=== PATIENT | female | born 1950 | race Caucasian/White ===

== ENCOUNTER → 2017-11-01 11:49 | Outpatient (CLI) | payer MEDICARE, SELFPAY ==
--- NOTE | 2017-11-01 11:35 | VUL_PTH ---
PATIENT: CEE TELLEZ LOC: [facility] U#:[id number] AGE/SX: 74/F ROOM: RE11/01/[address]: Dr. Ramon Bowers MD : 1950 BED: DIS: SPEC #: [id number] RECD: 11/01/17 12:18 STATUS: PRIYANKA VIKASH #: [id number] TWAN: 11/01/17 11:[address]: Ramon Bowers DEPT: SURGICAL PATHOLOGY RECD BY: Edison Hassan Tissues: Vulva, NOS Procedures: Special Stain Group I Surgery Specimen Level IV AFB Stain (control) GMS Stain (control) HEADER OPERATION: Biopsy right vulva PRE-OP DIAGNOSIS: Invasive squamous cell carcinoma vulva TISSUE SUBMITTED: Right vulvar biopsy MICROSCOPIC DIAGNOSIS Right vulva, biopsy: Verrucoid lesion with hyperkeratosis and parakeratosis. Focal intra-epithelial microabscess. Negative for acid-fast bacilli and fungal organisms. AM:krystal 11/02/17 COMMENT AFB and GMS stains with matched controls were used in the evaluation of this case. Case has been reviewed in consultation with Dr. Duran who concurs with the above diagnosis. IDC:SJ MICROSCOPIC DESCRIPTION Slides are reviewed. GROSS DESCRIPTION Received in fixative is one container labeled with the patient's name and designated biopsy of right vulva. The specimen consists of a punch biopsy of dobson-white skin measuring 0.2 cm in diameter and 0.2 cm in length. The specimen is totally submitted in one cassette. / RACHNA:krystal 11/01/17 TC:2 CPT: 23902, 81528 x2
== END ==
PROVIDERS: Visit Provider Obstetrics & Gynecology
DX: C51.9 Malignant neoplasm of vulva, unspecified (principal)
CPT/HCPCS: 88305; 88312

== ENCOUNTER → 2018-05-18 16:00 | Outpatient (CLI) | payer MEDICARE, SELFPAY ==
--- NOTE | 2018-05-18 | IMM_PTH ---
PATIENT: CEE TELLEZ LOC: [facility] U#:[id number] AGE/SX: 74/F ROOM: RE05/18/[address]: Dr. Ramon Bowers MD : 1950 BED: DIS: SPEC #: [id number] RECD: 05/22/18 14:35 STATUS: PRIYANKA RE #: [id number] TWAN: 05/18/18 00:[address]: Ramon Bowers DEPT: IMMUNOHISTOCHEMISTRY RECD BY: Amairani Garcia Tissues: A - Labium minus B - Vulva, NOS Procedures: CK14 (add) CK5-6 (add) KI-67 (add) P16 (add) P53 (add) Pankeratin (initial) P40 (add) PHYSICIAN & INSTITUTION [place] [id number] SPECIMEN INFORMATION: Tissue Source: A - Right inner labia minora, B - Right vulva Clinical Info: Lichen sclerosus Specimen Number: [id number] A & B CPT code: 64021 x2, 44924 x12 METHODOLOGY: Deparaffinized sections of prefer/formalin-fixed tissue or PAP/DQ stained slides are incubated with monoclonal/polyclonal antibodies/oligonucleotide probes. Localization is made via biotin free immunoperoxidase method. Appropriate controls are performed and reacted as expected. Results on target cell population are indicated in the following table: RESULTS: ANTIBODY / CLONE RESULT Block A AE1-3 (AE1/AE3/PCK26) positive P40 (BC28) positive CK5-6 (D5 & 1684) positive CK14 (LL002) positive P16 (E6H4) positive, patchy, dim Ki-67 (30-9) positive, low P53 (DO-7) positive, 45% Block B AE1-3 (AE1/AE3/PCK26) positive P40 (BC28) positive CK5-6 (D5 & 1684) positive CK14 (LL002) positive P16 (E6H4) negative Ki-67 (30-9) positive, low P53 (DO-7) positive, 10% These tests were developed and their performance characteristics determined by [facility]. They may not have been cleared or approved by the U.S. Food and Drug Administration. The FDA has determined that such clearance or approval is not necessary. INTERPRETATION: A. Right inner labia minora: Fragments of dysplastic squamous mucosa. B. Right vulva: Focal mild squamous dysplasia. AM:krystal 05/23/18 Case has been reviewed in consultation with Dr. Duran who concurs with the above diagnosis. IDC:SJ
--- NOTE | 2018-05-18 11:00 | LES_PTH ---
PATIENT: CEE TELLEZ LOC: [facility] U#:[id number] AGE/SX: 74/F ROOM: RE05/18/[address]: Dr. Ramon Bowers MD : 1950 BED: DIS: SPEC #: [id number] RECD: 05/18/18 15:48 STATUS: PRIYANKA VIKASH #: [id number] TWAN: 05/18/18 11:[address]: Ramon Bowers DEPT: SURGICAL PATHOLOGY RECD BY: Edison Hassan Tissues: A - Skin of labium, NOS B - Skin of vulva Procedures: Surgery Specimen Level IV HEADER OPERATION: Biopsies, lesions PRE-OP DIAGNOSIS: Lichen sclerosus TISSUE SUBMITTED: A - Right inner labia minora, B - Right vulva MICROSCOPIC DIAGNOSIS A. Right inner labia minora, biopsy: Fragments of dysplasitc squamous mucosa. See comment. B. Right vulva, biopsy: Mild squamous dysplasia, CHRIS I (LGSL). Changes consistent with HPV cytopathic effect. See comment. AM:krystal 05/22/18 COMMENT A & B. Immunohistochemistry ([id number]) supports the above diagnosis. A. Dysplastic fragments of squamous mucosa along with dyskeratosis and increased mitosis are present and suspicious for carcinoma in situ or higher grade lesion. Excision of lesion is recommended for definitive classification. Reference is made to the patient's right vulvar biopsy from 2017 ([id number]) in which lichen sclerosus and hyperkeratosis was identified. Reference is also made to the patient's right vulvar biopsy from 2018 ([id number]) in which verrucoid lesion with hyperkeratosis and parakeratosis was identified. Case has been reviewed in consultation with Dr. Duran who concurs with the above diagnosis. IDC:SJ MICROSCOPIC DESCRIPTION Slides are reviewed. GROSS DESCRIPTION A - Received in fixative is one container labeled with the patient's name and designated right inner labia minora. The specimen consists of two irregular fragments of congested dobson soft tissue that in aggregate measure 1 x 0.4 x 0.1 cm. The specimen is totally submitted in one cassette. B - Received in fixative is one container labeled with the patient's name and designated right vulva. The specimen consists of two pieces of dobson-white skin that in aggregate measure 0.8 x 0.3 x 0.1 cm. The specimen is totally submitted in one cassette. / RACHNA:krystal 05/19/18 TC:? CPT: 65903 x2
== END ==
PROVIDERS: Referring Provider Obstetrics & Gynecology; Visit Provider Obstetrics & Gynecology
DX: L90.0 Lichen sclerosus et atrophicus (principal)
CPT/HCPCS: 88305; 88341; 88342

== ENCOUNTER → 2018-06-20 10:58 | Outpatient (CLI) | payer MEDICARE, SELFPAY ==
--- NOTE | 2018-06-20 11:06 | CT_ITS ---
STUDY: CT ABDOMEN AND PELVIS WITH CONTRAST REASON FOR EXAM: Female, 67 years old. The patient has a history of vulvar cancer. Adenopathy. RADIATION DOSAGE (If Supplied By Facility): CTDIvol = ( 16.82 ) mGy, DLP = ( 1439.18 ) mGycm TECHNIQUE: Transaxial images were obtained from the dome of the diaphragm to the symphysis pubis with oral contrast. 100 IV/Oral Isovue 300 was administered. Sagittal and coronal images were reconstructed. Individualized dose optimization techniques were used for this CT. COMPARISON: None. FINDINGS: The visualized lung bases are unremarkable. The visualized portions of the heart are within normal limits. Normal liver. There are gallstones. Normal spleen. Normal pancreas. Normal bilateral adrenal glands. Normal right kidney. Normal left kidney. Normal visualized stomach. Normal small intestine. Normal colon. The appendix is visualized and appears normal. There is scattered atherosclerotic calcification of the abdominal aorta, without a demonstrated aneurysm. Normal inferior vena cava. There is borderline retroperitoneal lymphadenopathy with enlarged nodes no greater than 10mm in the short axis diameter. Normal urinary bladder. There is a small umbilical hernia containing fat. There are mild degenerative changes of the visualized lumbar spine. CT/Abdomen/Pelvis WITH Contrast IMPRESSION: Gallstones. No acute abnormality is seen. Electronically Signed: Rick Sanchez, at 8:39 EDT , Service support ,
[2018-06-20 13:10] LABS: CREATININE FINGERSTICK 0.8 mg/dL (0.55-1.02); EGFR FINGERSTICK > 60.0000 mL/min (>60)
--- NOTE | 2018-06-20 13:44 | EKG12_ITS ---
Test Reason : PREOP Blood Pressure : / mmHG Vent. Rate : 106 BPM Atrial Rate : 127 BPM P-R Int : 152 ms QRS Dur : 092 ms QT Int : 328 ms P-R-T Axes : 065 033 051 degrees QTc Int : 435 ms Sinus tachycardia Nonspecific ST/T wave abnormality Abnormal ECG Confirmed by YEYO MERCADO, LUZ MARIA ([id number]), photograph editor [employer] [place] ([id number]) on 06/23/2018 11:38:33 AM Referred By: Ollie Haines Confirmed By:LUZ MARIA ORONA MD
[2018-06-20 14:51] LABS: Absolute Lymphocyte Count 2.58 X10^3/ul (0.83-4.51); Absolute Neutrophil Count 11.3 X10^3/uL (2.0-7.7); Basophil# 0.02 X10^3/uL; Basophil% 0.1 % (0-1); Eosinophil# 0.21 X10^3/uL; Eosinophils% 1.4 % (0-5); Hematocrit 41.4 % (37-47); Hemoglobin 13.2 g/dl (12.0-15.0); Lymphocyte # 2.58 X10^3/ul (4.0); Lymphocyte % 16.9 % (19-41); Mean Corp Hgb Conc 31.9 g/gl (32-36); Mean Corpuscular Hgb 28.9 pg (27.0-32.0); Mean Corpuscular Volume 90.6 fL (81-99); Mean Platelet Vol. 10.7 fl (6.2-12.0); Monocyte# 1.16 X10^3/uL; Monocyte% 7.6 % (0-10); Neutrophil # 11.26 X10^3/uL (2.7-7.7); Neutrophil % 73.8 % (47-70); Platelet Count 384 K/mm3 (150-450); RBC Distribution Width CV 14.8 % (11.6-14.6); RBC Distribution Width SD 48.4 fl (35.1-43.9); Red Blood Count 4.57 M/mm3 (4.2-5.4); White Blood Count 15.3 K/mm3 (4.4-11.0)
[2018-06-20 14:52] LABS: POSITIVE COUNT NO; POSITIVE DIFFERENTIAL NO; POSITIVE MORPHOLOGY NO
[2018-06-20 14:55] LABS: Partial Thromboplast Time 31.5 Seconds (24.1-36.2); Prothrombin Time (Protime)PT. 13.4 SECONDS (11.7-14.9)
[2018-06-20 15:06] LABS: ALB/GLOB Ratio 0.7 RATIO (0.9-2.4); AST(SGOT) 20 U/L (15-37); Alanine Aminotransfer ALT/SGPT 26 U/L (13-56); Albumin, Serum 3.2 g/dL (3.2-5.0); Alkaline Phosphatase 123 U/L (45-117); Anion Gap 3 (5-15); BUN 13 mg/dL (7-18); BUN/Creat Ratio 16.6 RATIO (10-20); Calcium,Total 9.1 mg/dL (8.5-10.1); Chloride 103 mmol/L (98-107); Creatinine, Serum 0.78 mg/dL (0.55-1.02); EST Glomerular Filtration Rate 78 mL/min (>60); Est Glom Filt Rate - Afr Amer 94 mL/min (>60); Globulin 4.3 g/dL (2.2-4.2); Glucose 103 mg/dL (74-106); Protein, Total 7.5 g/dL (6.4-8.2); Sodium Level 136 mmol/L (136-145)
== END ==
PROVIDERS: Family Provider Nurse Practitioner Family; PCP Nurse Practitioner Family
DX: C51.9 Malignant neoplasm of vulva, unspecified (principal); Z79.01 Long term (current) use of anticoagulants
CPT/HCPCS: 36415; 74177; 80053; 85025; 85610; 85730; 93005; Q9967

== ENCOUNTER → 2018-08-10 11:54 | Outpatient (CLI) | payer MEDICARE, SELFPAY ==
--- NOTE | 2018-08-10 12:01 | CT_ITS ---
STUDY: CT ABDOMEN AND PELVIS WITH CONTRAST REASON FOR EXAM: Female, 67 years old. Although cancer with vulvectomy. Right lymph nodes removed. RADIATION DOSAGE (If Supplied By Facility): CTDIvol = ( 15.41 ) mGy, DLP = ( 1368.55 ) mGycm TECHNIQUE: Transaxial images were obtained from the dome of the diaphragm to the symphysis pubis without oral contrast. 100 ml of Isovue 300 contrast was administered. Sagittal and coronal images were reconstructed. Individualized dose optimization techniques were used for this CT. COMPARISON: CT abdomen and pelvis 06/20/2018 FINDINGS: Body wall soft tissues: Postsurgical changes, minimal soft tissue stranding, in the right groin. Small bilateral inguinal lymph nodes. Postsurgical changes in the perineum/inferior vulva consistent with reported surgical history, with no apparent residual masslike features and no abnormal fluid collection.. Osseous structures: No acute process. Inferior chest: No acute process. Hepatobiliary: Cholelithiasis without cholecystitis. Nondilated biliary tree. Normal liver parenchyma. Pancreas: No acute process. Spleen: Normal. Adrenal glands: Normal. Urogenital: Normal kidneys, collecting systems, ureters, urinary bladder, uterus, ovaries and adnexa. Normal features of the vagina. Pelvic floor and sidewalls and retroperitoneum: There are small lymph nodes of the iliac chains bilaterally, the largest in the distal iliac chains, on the left 14 mm, on the right 13 mm. Unchanged compared to prior imaging. There is no periaortic retroperitoneal lymphadenopathy. Vasculature: No acute process. Stomach: No acute process. Small bowel and mesentery: No acute process. Large bowel: Normal appendix. Unremarkable large bowel and rectum. Free fluid or free air: None. CT/Abdomen/Pelvis WITH Contrast IMPRESSION: Stable iliac chain and inguinal lymph nodes. Postsurgical features of the right inguinal chain and pelvis/perineum as described without evidence of surgical consultation. No other acute abdominopelvic process is evident. Electronically Signed: Eliecer Longoria MD at 16:03 EDT Tel , Service support ,
== END ==
PROVIDERS: Family Provider Nurse Practitioner Family; PCP Nurse Practitioner Family
DX: Z01.812 Encounter for preprocedural laboratory examination (principal); C51.9 Malignant neoplasm of vulva, unspecified
CPT/HCPCS: 74177; Q9967

== ENCOUNTER → 2022-11-18 | Outpatient (CLI) | payer MEDICARE, SELFPAY ==
--- NOTE | 2022-11-18 14:00 | BD_ITS ---
STUDY: DUAL ENERGY X-RAY ABSORPTIOMETRY / DXA REASON FOR EXAM: Female, 72 years old. SCREENING TECHNIQUE: Bone Mineral Density (BMD) measurements of lumbar spine and bilateral hips were obtained. COMPARISON: None. FINDINGS: Lumbar Spine (L1-L4): g/cm2 (1.256) / T-score (1.9) / Z-score (4.1) Findings are suggestive of normal bone density with a low fracture risk. Left Femur Total: g/cm2 (0.940) / T-score (0.0) / Z-score (1.6) Left Femoral Neck: g/cm2 (0.774) / T-score (-0.7) / Z-score (1.2) Right Femur Total: g/cm2 (0.885) / T-score (-0.5) / Z-score (1.2) Right Femoral Neck: g/cm2 (0.790) / T-score (-0.5) / Z-score (1.4) . BD/Dexa Bone Density Study IMPRESSION: The patient is considered normal as outlined below according to World Jaziel Organization (WHO) criteria with a low fracture risk. Reference Information: The T-score is the number of standard deviations above or below the standard which is normal for young adults at their peak bone mineral density. The World Health Organization (WHO) interprets the T-scores as follows: Above -1 Normal bone density Between -1 and -2.5 Osteopenia Equal to / or below -2.5 Osteoporosis As a practical clinical guideline, osteopenia may be graded as follows: Mild -1 through -1.5 Moderate -1.6 through -2.0 Severe -2.1 through -2.4 The Z-score is the number of standard deviations above or below age-matched controls. A Z-score of less than -1.5 would be considered abnormal. References: 1. NIH Osteoporosis and Related Bone Diseases www osteo.org 2. International Society for Clinical Densitometry www iscd.org 3. National Osteoporosis Foundation www nof.org Electronically Signed: Rick Sanchez MD at 12:31 EDT ,
== END | disposition home or self-care (01) ==
LOC: OPBD 13:26
PROVIDERS: PCP Nurse Practitioner Family; Referring Provider Internal Medicine Hematology & Oncology; Visit Provider Internal Medicine Hematology & Oncology
DX: Z78.0 Asymptomatic menopausal state (principal)
CPT/HCPCS: 77080

== ENCOUNTER → 2023-03-31 | Outpatient (CLI) | payer MEDICARE, SELFPAY ==
--- NOTE | 2023-03-31 14:51 | CT_ITS ---
STUDY: CT ABDOMEN AND PELVIS WITH CONTRAST REASON FOR EXAM: Female, 72 years old. VULVAR CA RADIATION DOSAGE (If Supplied By Facility): CTDIvol = ( 21.69 ) mGy, DLP = ( 1509.90 ) mGycm TECHNIQUE: Oral and amp; IV Gastrografin and amp; 100mL Isovue-300 was administered. Transaxial images were obtained from the dome of the diaphragm to the symphysis pubis in the arterial, nephrographic and excretory phases. Multiplanar coronal and sagittal images were reformatted. Individualized Dose Optimization Techniques Were Used For This CT. COMPARISON: Prior study dated: 08/10/2018 FINDINGS: The visualized lung bases are unremarkable. The visualized portions of the heart are within normal limits. Hepatic steatosis. Low-density lesion in segment 4A of the liver measuring about 3.7 x 2.4 x 2 cm new since the previous examination. Gallstones are seen. Normal spleen. Normal pancreas. Normal bilateral adrenal glands. Normal visualized stomach. Normal in caliber small bowel loops. No evidence of acute diverticulitis. There is non-visualization of the appendix. There is atherosclerotic calcification of the abdominal aorta with elongation and tortuosity, but without a demonstrated aneurysm. No retroperitoneal adenopathy. Normal right kidney. Normal left kidney. The bladder is not well distended. No pelvic mass. The valvar region is difficult to accurately evaluate on this exam. Normal abdominal wall. Degenerative changes of the spine. CT/Abdomen/Pelvis WITH Contrast IMPRESSION: 1. Liver lesion as described above new since previous examination could be due to hemangioma. Metastases cannot be excluded. Further evaluation with multiphase CT scan of the liver or MRI with contrast is recommended. 2. Otherwise no evidence of metastatic disease. 3. Cholelithiasis 4. No focal acute inflammatory process. Electronically Signed: Brenton Silverio MD at 15:34 EST ,
[2023-03-31 15:16] LABS: CREATININE FINGERSTICK 1.1 mg/dL (0.55-1.02)
== END | disposition home or self-care (01) ==
LOC: CT 14:47
PROVIDERS: PCP Nurse Practitioner Family; Referring Provider Nurse Practitioner Adult Health; Visit Provider Nurse Practitioner Adult Health
DX: C51.9 Malignant neoplasm of vulva, unspecified (principal); N89.8 Other specified noninflammatory disorders of vagina
CPT/HCPCS: 74177; Q9967

== ENCOUNTER → 2023-04-20 | Outpatient (CLI) | payer MEDICARE, SELFPAY ==
--- NOTE | 2023-04-20 14:55 | CT_ITS ---
STUDY: CT ABDOMEN WITH AND WITHOUT CONTRAST REASON FOR EXAM: Female, 72 years old. LIVER LESION RADIATION DOSAGE (If Supplied By Facility): CTDIvol = ( 19.97 ) mGy, DLP = ( 2921.32 ) mGycm TECHNIQUE: Transaxial images were obtained pre and post I.V. administration of IV 100mL Isovue-300, and with oral contrast. Sagittal and coronal images were reconstructed. Individualized dose optimization techniques were used for this CT. COMPARISON: Comparison is made with prior study dated March 31, 2023. FINDINGS: The visualized lung bases are unremarkable. The visualized portions of the heart are within normal limits. There is decreased attenuation of the liver consistent with steatosis. Stable 3.7 cm x 2.4 cm x 2 cm hypodense lesion in segment 4A of the liver. This is not a typical hemangioma. Correlation with ultrasound or MRI is recommended for further evaluation. There are multiple small gallstones. Normal spleen. Normal pancreas. Normal bilateral adrenal glands. Normal right kidney. Normal left kidney. Normal visualized stomach. Normal small intestine. Normal colon. The appendix is visualized and appears normal. Normal abdominal aorta. Normal inferior vena cava. Normal retroperitoneum. Normal abdominal wall. Normal osseous structures. CT/Abdomen W/WO IV Contrast IMPRESSION: Stable finding in segment 4A of the liver as described. Further correlation with MRI of the liver versus ultrasound recommended. Electronically Signed: Rick Sanchez MD at 15:12 EST ,
== END | disposition home or self-care (01) ==
LOC: CT 14:05
PROVIDERS: PCP Nurse Practitioner Family; Referring Provider Nurse Practitioner Adult Health; Visit Provider Nurse Practitioner Adult Health
DX: C51.9 Malignant neoplasm of vulva, unspecified (principal); K76.9 Liver disease, unspecified; R16.0 Hepatomegaly, not elsewhere classified
CPT/HCPCS: 74170; Q9967

== ENCOUNTER → 2023-05-17 | Outpatient (CLI) | payer MEDICARE, SELFPAY ==
--- NOTE | 2023-05-17 09:30 | PET_ITS ---
EXAMINATION: FDG PET/CT INDICATIONS: 72-year-old female with a history of vulvar carcinoma, presenting for restaging examination. ? COMPARISON EXAMINATION: None available. ? INDEX LESION SIZE SUV INTERPRETATION Anterior midline external genitalia 38.1 mm, largest 8.2 max Fulfills quantitative criteria for viable neoplasm ? TECHNIQUE: Following the intravenous administration of 12.47 mCi of F-18 deoxyglucose via the right hand, multiplanar image acquisitions of the head, neck, chest, abdomen and pelvis to the level of the midthigh, obtained at one-hour post radiopharmaceutical administration contemporaneously interpreted with the current CT of the chest, abdomen and pelvis dated 05/17/2023 via coregistration reveal: SERUM GLUCOSE LEVEL:? 130 mg/dL? HEIGHT:?? 67 inches WEIGHT:?? 147 pounds ? FINDINGS: ? HEAD/NECK:? There is no evidence of abnormal increased glucose metabolism in the pharyngeal mucosal space, parapharyngeal space, oropharynx, bilateral-lateral and anterior neck, hypopharynx and distribution of the larynx. ? The visualized portion of the cerebral cortical-subcortical structures demonstrate symmetric and preserved glucose metabolism. ? CHEST:? There is no quantitative scintigraphic evidence of abnormal increased glucose metabolism within the context of the bilateral hemithorax pulmonary parenchyma, right and left hemithorax at the pleural interface, mediastinal structures, and left-right thoracic perihilum. ? CT of the chest demonstrates the following anatomic characteristics: Bilateral axillary soft tissue densities are non tracer avid. There are no parenchymal densities-nodules defined in the right and left hemithorax with quantitatively significant increased glucose metabolism. Calcification is defined within the descending thoracic aorta. ? ABDOMEN/PELVIS:? Facilitated FDG concentration is manifest in the region of the anterior midline external genitalia. The calculated maximum standard uptake value is 8.2. The maximum axial diameter of the metabolic, morphologic abnormality is 38.1 mm. Normal physiologic distribution of the radiopharmaceutical is identified in the hepatic and splenic parenchyma, both renal units, urinary bladder, and visualized intestinal tract. Diffuse intestinal tract is identified in all four quadrants of the abdomen and pelvis. ? CT of the abdomen and pelvis is remarkable for the following: Atherosclerotic calcification is defined in the abdominal aorta without evidence of dilatation, aneurysm formation. Pelvic arterial calcification is observed. Cholelithiasis is demonstrated. Bilateral inguinal soft tissue densities are ametabolic. Calcified phlebolith formation is noted in the left lower hemipelvis. ? SKELETAL:? Degenerative changes defined in the thoracic and lumbar spine demonstrate no evidence of increased glucose metabolism. There are no sclerotic, mixed sclerotic-lytic, or primarily lytic changes defined in the axial skeletal structures with evidence of increased FDG uptake. ? PET/PET/CT Tumor Base -Thigh Init IMPRESSION: 1. ABNORMAL EXAMINATION INDICATIVE OF MALIGNANT-VIABLE NEOPLASM. 2. Increased FDG concentration defined in the distribution of the midline external genitalia, fulfills quantitative criteria for viable neoplasm. 3. Meticulous attention paid to the hepatic parenchyma demonstrates no scintigraphic abnormalities. Electronic Signature Eliecer oBlanos D.O. Accurate Quantification of SUVs for this report are calculated using the exclusive [employer]. (U.S. Patent No. [phone] [phone] B2 [phone] [place] patent [phone]). Standardization and correction of the FDG SUV metric via [employer] technology allow for vendor non-specific objective quantitative examination comparison and optimization of the sensitivity and specificity of the FDG PET-CT examination. . [email or web address] Electronically Signed: Eliecer Bolanos DO at 23:43 EST ,
--- OUTSIDE RECORDS SUMMARY | 2023-05-17 10:11 | XMS RPT_ITS | CCD ---
Author Name Unknown Address [address] [place] [address] Organization [facility] Care Team Providers Care Jockey'S Agent Name Role Phone SHANAE BALDERAS-QUEENIE, LATASHA Remy Primary Care Physicia n LATASHA CLOUD CNP Admitting Unavailable LATASHA CLOUD CNP Primary Care Unavailable LATASHA CLOUD CNP Consulting Unavailable LATASHA CLOUD CNP Attending Unavailable PROVIDER, UNKNOWN Consulting Unavailable PROVIDER, UNKNOWN Consulting Unavailable LATASHA CLOUD CNP Primary Care Unavailable LATASHA CLOUD CNP Consulting Unavailable LATASHA CLOUD CNP Attending Unavailable LATASHA CLOUD CNP Admitting Unavailable PROVIDER, UNKNOWN Consulting Unavailable PROVIDER, UNKNOWN Consulting Unavailable LATASHA CLOUD CNP Admitting Unavailable LATASHA CLOUD CNP Primary Care Unavailable LATASHA CLOUD CNP Consulting Unavailable LATASHA CLOUD CNP Attending Unavailable PROVIDER, UNKNOWN Consulting Unavailable PROVIDER, UNKNOWN Consulting Unavailable ABDOULAYE, DELMAR T Attending Unavailable ABDOULAYE, DELMAR T Admitting Unavailable ABDOULAYE, DELMAR T Primary Care Unavailable ABDOULAYE, DELMAR T Attending Unavailable ABDOULAYE, DELMAR T Admitting Unavailable ABDOULAYE, DELMAR T Primary Care Unavailable ADEBAYO, SHRUTHI PAC Admitting Unavailable ADEBAYO, SHRUTHI PAC Primary Care Unavailable ADEBAYO, SHRUTHI PAC Attending Unavailable ABDOULAYE, DELMAR T Attending Unavailable ABDOULAYE, DELMAR T Admitting Unavailable ABDOULAYE, DELMAR T Primary Care Unavailable Kelly MERCADO, Rei Parra Unavailable JOHN MERCADO, ANA M Attending Unavailable TREY CHIU MD Consulting Unavailable SHANAE BALDERAS-QUEENIE, LATASHA Remy Primary Care Unava ANA M Warner MD Admitting Unavailable ANA M LOPEZ MD Attending Unavailable SHANAE BALDERAS-QUEENIE, LATASHA Remy Primary Care Unava ilCARLOS Ruiz Attending Unavaila ble SHANAE BALDERAS-QUEENIE, LATASHA Remy Primary Care ANA M House MD Attending Unavailable LATASHA GARCIA Primary Care ANA M House MD Attending Unavailable LATASHA GARCIA Primary Care ANA M House MD Attending Unavailable LATASHA GARCIA Primary Care ANA M House MD Attending Unavailable LATASHA GARCIA Primary Care Latasha Kenyon Primary Care Provider REI MENDOZA Attending Unavailable CARLOS STRINGER Referring Unavailable LATASHA CLOUD Primary Care Unavailable Allergies Allergy Classification Reported Allergen(s) Allergy Type Date of Onset Reaction(s) Facility (14 sources) Acetaminophen / pamabrom / Pyrilamine; Translations: [APAP/pamabrom/pyr ilamine] Drug Allergy Rash, Unknown [facility] Work Phone: (7 sources) Adhesive Tape Drug allergy Skin irritation (disorder) [facility] Work Phone: (3 sources) Acetaminophen Drug Allergy 4 Rash, Unknown [facility] (3 sources) Jywu-Kflpzcyw-Msks jessica Drug Allergy 3 Hives [facility] Medications Current Medications Medication Drug Class(es) Dates Sig (Normalized) Sig (Original) 8 hr acetaminophen 650 mg extended release oral tablet (7 sources) Start: 08-01-2020 Tylenol 8 Hour 650 mg oral tablet, extended release Dose : 1,300 mg = 2 tab(s), Oral, q8h, PRN PRN as needed for pain, # 50 tab(s), 0 Refill(s) Start Date: 08/01/20 Status: Ordered Completed/Discontinued Medications Medication Drug Class(es) Dates Sig (Normalized) Sig (Original) Estrace Vaginal 0.1 mg/g vaginal cream (1 source) Start: 01-07-2021 End: 02-06-2021 Estrace Vaginal 0.1 mg/g vaginal cream 1 gram(s), Vaginal, qDay, Use daily for 14 days then 3/week., # 42.5 gram(s), 0 Refill(s), Pharmacy: [id number], 170.2, cm, 01/07/21 11:45:00 EDT, Height, kg, 01/07/21 11:45:00 EDT, Dosing Weight Start Date: 01/07/21 Stop Date: 02/06/21 Status: Ordered metroNIDAZOLE 500 mg oral tablet (4 sources) Nitroimidazole Antimicrobial Start: 01-15-2021 End: 01-22-2021 metroNIDAZOLE 500 mg oral tablet Dose : 500 mg = 1 tab(s), Oral, q8h, # 21 tab(s), 0 Refill(s), 116.8 Start Date: 01/15/21 Stop Date: 01/22/21 Status: Ordered Problems Active Problems Problem Classification Problem Date Documented Da te Episodic/Chronic Anxiety disorders (2 sources) Anxiety; Translations: [Anxiety disorder, unspecified] 05-09-2023 Chronic Cancer of other female genital organs (11 sources) Malignant tumor of vulva; Translations: [Malignant neoplasm of vulva, unspecified] Onset: 07-05-2022 08-12-2020 Chronic Cardiac dysrhythmias (8 sources) Atrial fibrillation 05-04-2019 Chronic Past or Other Problems Problem Classification Problem Date Documented Date Episodic/Chronic Nonmalignant breast conditions (3 sources) Mammographic calcification found on diagnostic imaging of breast; Translations: [Mammographic calcification found on diagnostic imaging of breast] Onset: 09-16-2022 Episodic Results Test Name Value Interpretation Reference Range Facil ity Vital Signs Date Time Vital Sign Value Performing Clinician Sebastian morrisy 06-21-2022 11:53-0400 Blood Pressure Location ANA M LOPEZ MD [facility] 06-21-2022 11:53-0400 Blood Pressure Method ANA M LOPEZ MD [facility] 06-21-2022 11:53-0400 Diastolic Blood Pressure Non-Invasive 78 1 ANA M LOPEZ MD [facility] 06-21-2022 11:53-0400 Systolic Blood Pressure Non-Invasive 125 1 ANA M LOPEZ MD [facility] 06-21-2022 11:41-0400 Blood Pressure Location ANA M LOPEZ MD [facility] 06-21-2022 11:41-0400 Blood Pressure Method ANA M LOPEZ MD [facility] 06-21-2022 11:41-0400 Body height 171 cm ANA M LOPEZ MD [facility] 06-21-2022 11:41-0400 Body temperature 98.06 [degF] ANA M LOPEZ MD [facility] 06-21-2022 11:41-0400 Body weight 115.1 kg ANA M LOPEZ MD [facility] 06-21-2022 11:41-0400 Diastolic Blood Pressure Non-Invasive 84 1 ANA M LOPEZ MD [facility] 06-21-2022 11:41-0400 Heart rate 88 /min ANA M LOPEZ MD [facility] 06-21-2022 11:41-0400 Systolic Blood Pressure Non-Invasive 164 1 ANA M LOPEZ MD [facility] Encounters Encounter Date Encounter Type Care Provider Facility Start: 05-04-2023 Telephone encounter Rei Mendoza MD Work Phone: [facility] Start: 04-28-2023 End: 04-28-2023 ambulatory REI MENDOZA [facility] Start: 04-08-2023 Telephone encounter Rei Mendoza MD Work Phone: [facility] Start: 03-24-2023 End: 03-25-2023 ambulatory CARLOS CHAUDHRY Facility:A Start: 03-09-2023 End: 03-09-2023 ambulatory LAT[facility] Start: 03-08-2023 ambulatory DELMAR Rico [facility] Start: 11-10-2022 End: 11-11-2022 ambulatory ANA M LOPEZ MD Facility:A Start: 10-06-2022 End: 10-06-2022 ambulatory [facility] Start: 09-16-2022 End: 09-16-2022 ambulatory [facility] Start: 08-27-2022 End: 08-27-2022 [facility] Start: 08-04-2022 End: 08-05-2022 ambulatory ANA M LOPEZ MD Facility:A Start: 07-21-2022 End: 07-22-2022 ambulatory ANA M LOPEZ MD Facility:A Start: 07-21-2022 End: 07-21-2022 Patient encounter procedure ANA M LOPEZ MD [facility] Start: 07-05-2022 End: 07-06-2022 Evaluation and management of inpatient ANA M LOPEZ MD Facility:A Start: 06-21-2022 End: 06-22-2022 ambulatory ANA M LOPEZ MD Facility:A Start: 06-21-2022 End: 06-21-2022 Admission to establishment ANA M LOPEZ MD [facility] Start: 06-17-2022 End: 06-18-2022 ambulatory ANA M LOPEZ MD Facility:A Start: 06-17-2022 End: 06-17-2022 Patient encounter procedure ANA M LOPEZ MD [facility] Start: 03-17-2022 End: 03-17-2022 ambulatory LATASHA QUEENIE CLOUD [facility] Start: 12-30-2021 End: 12-30-2021 Patient encounter procedure ANA M LOPEZ MD [facility] Start: 05-28-2021 End: 05-28-2021 Patient encounter procedure ANA M LOPEZ MD [facility] Start: 01-15-2021 End: 01-15-2021 Patient encounter procedure ANA M LOPEZ MD [facility] Start: 01-07-2021 End: 01-07-2021 Patient encounter procedure ANA M LOPEZ MD [facility] Procedures Date Procedure Procedure Detail Performing Clinician Start: 07-05-2022 Vulvectomy radical partial ANA M LOPEZ MD Start: 08-12-2020 Vulvectomy ANA M WILKERSON MD Start: 03-21-2012 Entire parathyroid g land (body structure) ANA M LOPEZ MD Plan of Treatment Date Care Activity Detail Author Start: 04-28-2023 End: 04-28-2023 Patient encounter procedure 04/28/2023 1:00 PM EST Office Visit [facility] [address] [place] [address] Rei Mendoza MD [address] [place], [place] [id number] [facility] Start: 11-19-2022 Influenza vaccination Influenza Vaccine (#1) [facility] Start: 12-23-2016 Pneumococcal Vaccine: 65+ Years (2 of 2 - PPSV23 or PCV20) Pneumococcal Vaccine: 65+ Years (2 of 2 - PPSV23 or PCV20) [facility] Start: 2010 RSV Immunization aged 60 or older (1 - 1-dose 60+ series) RSV Immunization aged 60 or older (1 - 1-dose 60+ series) [facility] Start: 2000 Zoster Vaccines (1 of 2) Zoster Vaccines (1 of 2) [facility] Start: 1990 Screening for malignant neoplasm of breast Mammogram [facility] Start: 1969 DTaP/Tdap/Td Vaccines (1 - Tdap) DTaP/Tdap/Td Vaccines (1 - Tdap) [facility] Start: 1968 Diabetes mellitus screening Diabetes Screening [facility] Start: 1968 Hepatitis C screening Hepatitis C Screening [facility] Start: 1962 Depression Screening Depression Screening [facility] Start: 02-21-1951 COVID-19 Vaccine (#1) COVID-19 Vaccine (#1) [facility] Start: [birth year]21-1951 Examination of skin Derm Melanoma Skin Check [facility] Start: 1950 Lipid panel Lipid Panel [facility] Start: 1950 Medicare Annual Wellness (AWV) Medicare Annual Wellness (AWV) [facility] Start: 1950 Screening for malignant neoplasm of colon [facility] Start: 1950 Screening for osteoporosis Bone Density Scan [facility] Start: 1950 Thyroid stimulating hormone measurement TSH Level [facility] Immunizations Immunization Date Immunization Notes Care Provider Fa cili 11-29-2019 influenza virus vacc ine, unspecified formulation ANA M LOPEZ MD [facility] 02-21-2019 influenza virus vacc ine, unspecified formulation ANA M LOPEZ MD [facility] 01-09-2018 influenza virus vacc ine, unspecified formulation ANA M LOPEZ MD [facility] 01-06-2016 influenza virus vacc ine, unspecified formulation ANA M LOPEZ MD [facility] 12-24-2015 pneumococcal conjuga te vaccine, 13 valent ANA M LOPEZ MD [facility] 01-26-2013 influenza virus vacc ine, unspecified formulation ANA M LOPEZ MD [facility] 01-25-2012 influenza virus vacc ine, unspecified formulation ANA M LOPEZ MD [facility] Payers Date Payer Category Payer Medicare [id number] 2015 Medicare MEDICARE MEDICAR E PART A AND B [id number] 2015-Present [address] [place] [address] Medicare [id number] 1950 Unknown [id number] 1950 Unknown [id number] 1950 Unknown [id number] 1950 Unknown [id number] 1950 Unknown [id number] 1950 Unknown [id number] [id number] 1950 Unknown [id number] [id number] 1950 Unknown [id number] [id number] 1950 Unknown [id number] [id number] 1950 Unknown [id number] [id number] 1950 Unknown [id number] [id number] 1950 Unknown [id number] [id number] 1950 Unknown [id number] 1950 Unknown [id number] Social History Date Type Detail Facility Start: 07-03-2018 End: 04-28-2023 Never smoked tobacco (finding) [facility] Sex Assigned At Female [facility] Tobacco smoking stat us NHIS Tobacco smoking consumption unknown [facility] Start: 1950 Sex Assigned At Not on file [facility] Start: 04-28-2023 Gender identity Not on file [facility] Start: 04-28-2023 Tobacco use and exposure Smokeless tobacco non-user [facility] Start: 04-28-2023 Alcohol intake Ex-drinker (finding) [facility] Start: 04-28-2023 History of Social function [facility] Clinical Notes 04-08-2023 to 05-09-2023 Addendum Note - ANDREY Chavez CNP - 05/09/2023 3:32 PM ESTAddendum Note - ANDREY Chavez CNP - 05/09/2023 3:32 PM ESTAddendum Note - ANDREY Chavez CNP - 05/09/2023 3:32 PM EST Note Date & Type Note Facility 05-09-2023 Note Addended by: Michi LONG on: 05/09/2023 03:32 PM Modules accepted: Orders [facility] 05-09-2023 Note Addended by: Michi LONG on: 05/09/2023 03:32 PM Modules accepted: Orders [facility] 05-09-2023 Note Addended by: Michi LONG on: 05/09/2023 03:32 PM Modules accepted: Orders [facility] 05-09-2023 Miscellaneous Notes Addended by: GRACIELA LONG on: 05/09/2023 03:32 PM Modules accepted: Orders Called patient and prescribed 2 mg of Valium before her PET scan. OARRS report ran. Patient verbalizes understanding Patient mentioned that she got scheduled for a PET scan. Patient mentioned that she was talking to Dr. Douglas about getting an anxiety prescription filled for the PET scan. I asked patient if she knows what prescription it is. Patient mentioned it might be lorazepam but not sure. Patient asked if she needs to keep her mammogram appt on May 12 since she is having a PET scan done. Patient would like a call back. Thank you! Patient requested to be scheduled at [place] due to daughter being the yard truck driver. Patient scheduled for SEAT MAKER appointment 04-28-2023 Called pt to schedule a icer machine operator appointment with Dr. Douglas. Left message to call office. documented in this encounter [facility] Dr. Scribbles 05-09-2023 Telephone encount er Note Called patient and prescribed 2 mg of Valium before her PET scan. OARRS report ran. Patient verbalizes understanding [facility] Dr. Scribbles 05-09-2023 Telephone encount er Note Patient mentioned that she got scheduled for a PET scan. Patient mentioned that she was talking to Dr. Douglas about getting an anxiety prescription filled for the PET scan. I asked patient if she knows what prescription it is. Patient mentioned it might be lorazepam but not sure. Patient asked if she needs to keep her mammogram appt on May 12 since she is having a PET scan done. Patient would like a call back. [facility] 05-05-2023 Telephone encount er Note Error [facility] 05-05-2023 Miscellaneous Notes Formattin g of this note might be different from the original. Error documented in this encounter [facility] 04-14-2023 Telephone encount er Note Thank you! [facility] 04-14-2023 Miscellaneous Notes Formattin g of this note might be different from the original. Thank you! Patient requested to be scheduled at [place] due to daughter being the yard truck driver. Patient scheduled for SEAT MAKER appointment 04-28-2023 Called pt to schedule a icer machine operator appointment with Dr. Douglas. Left message to call office. documented in this encounter [facility] 04-14-2023 Telephone encount er Note Patient requested to be scheduled at [place] due to daughter being the yard truck driver. Patient scheduled for SEAT MAKER appointment 04-28-2023 [facility] 04-08-2023 Telephone encount er Note Called pt to schedule a icer machine operator appointment with Dr. Douglas. Left message to call office. [facility] 04-08-2023 Miscellaneous Notes Formattin g of this note might be different from the original. Called pt to schedule a icer machine operator appointment with Dr. Douglas. Left message to call office. documented in this encounter [facility] Evaluation + Plan note Future Appointments Appointment Date:01/15/2021 11:20:00 AM Scheduled Provider:ANA M LOPEZ MD Location:[facility] Appointment Type:SO OV [facility] Evaluation + Plan note Future Appointments Appointment Date:04/16/2021 11:40:00 AM Scheduled Provider:ANA M LOPEZ MD Location:[facility] Appointment Type:SO OV Follow Up [facility] Evaluation + Plan note Future Appointments Appointment Date:12/02/2021 11:40:00 AM Scheduled Provider:ANA M LOPEZ MD Location:[facility] Appointment Type:SO OV Follow Up [facility] Evaluation + Plan note Future Appointments Appointment Date:06/30/2022 11:40:00 AM Scheduled Provider:ANA M LOPEZ MD Location:[facility] Appointment Type:SO OV Follow Up [facility] Evaluation + Plan note Future Appointments Appointment Date:07/21/2022 11:30:00 AM Scheduled Provider:ANA M LOPEZ MD Location:[facility] Appointment Type:SO OV Post Op Future Scheduled TestsUrinalysis 12/31/21Urine Culture 12/31/21 [facility] Evaluation + Plan note Future Appointments Appointment Date:08/04/2022 11:30:00 AM Scheduled Provider:ANA M LOPEZ MD Location:[facility] Appointment Type:SO OV Post Op Future Scheduled TestsUrinalysis 12/31/21Urine Culture 12/31/21 [facility] Narrative No data available for this section [facility] Discharge instructions No data available for this section [facility] Progress note No data available for this section [facility] Summary Purpose Family History No Family History Records FoundNo Family History Records FoundNo Family History Records FoundNo Family History Records Found Advance Directives No Advanced Directives Records FoundNo Advanced Directives Records FoundNo Advanced Directives Records FoundNo Advanced Directives Records Found Additional Source Comments INFORMATION SOURCE (unrecogn ized section and content) DATE CREATED AUTHOR AUTHOR'S ORGANIZ ATION 03/10/[address] [facility] DATE CREATED AUTHOR AUTHOR'S ORGANIZ ATION 04/09/2023 [facility] ([place] DATE CREATED AUTHOR AUTHOR'S ORGANIZ ATION 05/10/2023 [facility] Care Team (unrecognized sect ion and content) Care Team Personnel Name: LATASHA CLOUD FIRE CONTROL OFFICER-SUPERVISOR OF WAY Member Role: Primary Care Physician Address: Address: [address] [place] [address] [address] [place] [address]- Name: ANA M LOPEZ MD Position: P4 Oncology Provider Med Service: [facility] Infusion Therapy Member Role: Gynecologic Oncologist Address: Address: [address] [place] [address] [place] [address]- Care Team Related Persons Name: HAKAN BRAVO Patient Care team informatio n (unrecognized section and content) Jockey'S Agent Relationship Specialty Start Date End Date Latasha Cloud [address] [place] [phone] PCP - General Internal Medicine 04/14/23 Rei Mendoza MD [address] [place] [address] Consulting Physician Gynecologic Oncology 04/08/23 Jockey'S Agent Relationship Specialty Start Date End Date Latasha Cloud [address] [place] [phone] PCP - General Internal Medicine 04/14/23 Rei Mendoza MD [address] [place] [address] Consulting Physician Gynecologic Oncology 04/08/23 Jockey'S Agent Relationship Specialty Start Date End Date Latasha Cloud [address] [place] [address] PCP - General Internal Medicine 04/14/23 Rei Mendoza MD [address] [place] [address] Consulting Physician Gynecologic Oncology 04/08/23 Reason for Visit (unrecogniz ed section and content) FOR RECORDS PERTAINING TO PATIENTS WHO ARE OR HAVE BEEN ENROLLED IN A CHEMICAL DEPENDENCY/SUBSTANCEABUSE PROGRAM, SOME INFORMATION MAY BE OMITTED. This clinical summary was aggregated from multiple sources. Caution should be exercised in using it in the provision of clinical care. This summary normalizes information from multiple sources, and as a consequence, information in this document may materially change the coding, format and clinical context of patient data. In addition, data may be omitted in some cases. CLINICAL DECISIONS SHOULD BE BASED ON THE PRIMARY CLINICAL RECORDS. [employer] [facility]. provides no warranty or guarantee of the accuracy or completeness of information in this document.
== END | disposition home or self-care (01) ==
PROVIDERS: PCP Nurse Practitioner Family; Referring Provider Obstetrics & Gynecology; Visit Provider Obstetrics & Gynecology
DX: R93.2 Abnormal findings on diagnostic imaging of liver and biliary tract (principal)
CPT/HCPCS: 78815; A9552

== ENCOUNTER → 2023-06-28 | Outpatient (CLI) | payer MEDICARE, SELFPAY ==
--- NOTE | 2023-06-28 10:04 | US_ITS ---
STUDY: ABDOMINAL ULTRASOUND - RIGHT UPPER QUADRANT REASON FOR VISIT: Female, 72 years old LIVER LESION ON CT TECHNIQUE: Ultrasound evaluation of the right upper quadrant was performed with real-time and static dougherty-scale imaging. TECHNICAL QUALITY: Adequate. COMPARISON: Comparison is made with prior CT scan of the abdomen dated April 20, 2023. FINDINGS: Liver: The liver is mildly enlarged and measures 17.9 cm. There is increased echogenicity consistent with fatty infiltration. The bile ducts are within normal limits. There is hepatic color flow. The direction of portal flow is hepatopetal. There is no demonstrated mass lesion. The abnormality seen on the CT examination is not seen on sonogram. Correlation with MRI recommended. Gallbladder: Normal distended gallbladder. The gallbladder wall measures 5 mm. There is a negative sonographic Falcon''s sign. There is no pericholecystic fluid. There are multiple echogenic structures within the gallbladder, consistent with multiple gallstones. Common Bile Duct (C.B.D.): The common bile duct measures 4 mm. Pancreas: Normal size of the head, body and tail of the pancreas. There is normal echogenicity of the pancreas. There is no demonstrated pancreatic mass or cyst. Right Kidney: Normal size of the right kidney. The right kidney measures 11.7 cm x 5.2 cm x 4.2 cm. Normal renal cortex. The right cortex measures 1.4 cm. There is no demonstrated renal mass or cyst. There is no right hydronephrosis. US/Abdomen Limited IMPRESSION: Mild hepatomegaly and fatty infiltration of the liver. The abnormalities seen on the CT scan is not visualized sonographically. Correlation with MRI is recommended. Gallstones. Electronically Signed: Rick Sanhcez MD at 12:31 EDT ,
== END | disposition home or self-care (01) ==
LOC: US 10:03
PROVIDERS: PCP Nurse Practitioner Family; Referring Provider Internal Medicine Hematology & Oncology; Visit Provider Internal Medicine Hematology & Oncology
DX: K76.9 Liver disease, unspecified (principal)
CPT/HCPCS: 76705

== ENCOUNTER 2023-07-06 10:44 | Day surgery (SDC) | payer MEDICARE, SELFPAY ==
[2023-07-06] VITALS (7 sets, daily range): BP systolic 102–149; BP diastolic 48–82; PULSE 74–84; RESP 16–18; TEMP 36.2–36.7; O2SAT 95–97; BMI 36.6
[2023-07-06] MEDS: Lactated Ringers 1,000 ML 15 ML IV (11:13)
--- NOTE | 2023-07-06 11:38 | PCM.HP.BLA ---
History and Physical Date of Admission: 07/06/23 Intake Vital Signs 06/22/2414:20 06/29/2409:56 06/30/2412:58 Height 5 ft 7 in 5 ft 7 in 5 ft 7 in Weight: 239 lb BMI 37.4 BP 123/73 H Blood Pressure Location Rt brachial Position Sitting Respiration 18 Pulse 83 Pulse Source Monitor Temp 97.4 F L Temp Source Temporal Pulse Oximetry (%) 97 Oxygen Delivery Method room air Intake Visit Reasons: port placement Chief Complaint: port placement Is patient in pain?: No Allergies adhesive tape Adverse Reaction (Intermediate, Verified 07/01/23 14:00) Rashpamprin Allergy (Unknown, Uncoded 07/01/23 14:00) hivespollen Allergy (Uncoded 07/01/23 14:00) rhinitis Medications acetaminophen 650 mg tablet,extended release (Tylenol 8 Hour) 650 mg PO Q8H PRN 11/05/22 [History Confirmed 07/01/23] atorvastatin 20 mg tablet 20 mg PO QHS 11/05/22 [History Confirmed 07/01/23] bupropion HCl 100 mg tablet 100 mg PO BID 11/05/22 [History Confirmed 07/01/23] calcium carbonate (Calcium 600) 600 mg PO DAILY 11/05/22 [History Confirmed 07/01/23] cholecalciferol (vitamin D3) 50 mcg (2,000 unit) capsule 50 mcg PO DAILY 11/05/22 [History Confirmed 07/01/23] loratadine 10 mg tablet (Allergy Relief (loratadine)) 10 mg PO DAILY 11/05/22 [History Confirmed 07/01/23] losartan 50 mg-hydrochlorothiazide 12.5 mg tablet 1 tab PO DAILY 11/05/22 [History Confirmed 07/01/23] metoprolol succinate 50 mg tablet,extended release 24 hr 50 mg PO DAILY 11/05/22 [History Confirmed 07/01/23] [id number]-eybahmrg-[id number] tablet (Multivitamin 50 Plus tablet) 1 tab PO DAILY 11/05/22 [History Confirmed 07/01/23] triamcinolone acetonide 55 mcg nasal spray aerosol (Nasacort) 1 spray intranasal DAILY PRN 11/05/22 [History Confirmed 07/01/23] vitamin B complex (Complex B-100 tablet,extended release) 1 tab PO DAILY 11/05/22 [History Confirmed 07/01/23] docusate sodium 100 mg capsule (Colace) 100 mg PO BID PRN 11/11/22 [History Confirmed 07/01/23] nystatin 100,000 unit/gram topical powder 1 applic topical DAILY PRN 11/11/22 [History Confirmed 07/01/23] triamcinolone acetonide 0.1 % topical cream 1 applic topical .COMPLEX PRN 11/11/22 [History Confirmed 07/01/23] lidocaine-prilocaine 2.5 %-2.5 % topical cream 1 applic topical ONCE PRN port access 30 days #30 grams 06/30/23 [Rx Confirmed 07/01/23] ondansetron 8 mg disintegrating tablet 8 mg PO Q8H PRN nausea and vomiting #30 tabs 06/30/23 [Rx Confirmed 07/01/23] prochlorperazine maleate 10 mg tablet 10 mg PO Q6H PRN nausea and vomiting #30 tabs 06/30/23 [Rx Confirmed 07/01/23] PFSH Medical History Acquired hypothyroidism Atrial fibrillation Benign essential hypertension Depressive disorder Dyslipidemia Encounter for education Hx vulvar dysplasia Irregular heartbeat Lichen sclerosus of female genitalia Morbid obesity Neoplasm of right breast, primary tumor staging category Tis: ductal carcinoma in situ (DCIS) Vitamin B12 deficiency Vitamin D deficiency Surgical History History of dilation and curettage History of lumpectomy of right breast History of parathyroidectomy History of right breast biopsy History of thyroidectomy History of vulvectomy Family History Father Asthma Heart disease COPD (chronic obstructive pulmonary disease) smokerMother Arthritis Hypertension Kidney diseaseGrandmother Cancer paternal - thinks it was breast but can't confirmBrother Alcohol abuse Social History household members: none current occupational status: other 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 I discussed right chest port placement in detail with her. Patient has recurrent vulvar cancer. She has no other complaints at this time. ROS General General: Yes weight change, fatigue and breast cancer; No appetite, colon cancer or weakness HEENT HEENT: No difficulty swallowing, eye injury, eye surgery, swollen glands or hoarseness Endo Endocrine: Yes thyroid disease; No diabetes mellitus, thyroid cancer, Hair loss, heat intolerance or cold intolerance Skin Skin: No rash or changing moles Breast Breast: Yes right breast lump, abnormal mammogram and abnormal US; No left breast lump, nipple discharge, breast pain or breast enlargement Musc Musculoskeletal: No back problems, arthritis, rheumatoid arthritis, gout or joint pain Cardio Cardiovascular: Yes high blood pressure; No murmur, pacemaker, heart disease, atrial fibrillation, heart attack, heart stent, palpitations, shortness of breat with exertion or chest pain Psych Psychiatric: Yes depression and anxiety; No hearing voices Resp Respiratory: No shortness of breath, No sleep apnea, No cough, No COPD, No asthma, No emphysema and No wheezing Gastro Gastrointestinal: No abdominal pain, No nausea or vomiting, No diarrhea, Yes constipation, No blood in stool, No acid reflux, No hemorrhoids, No ulcers, No gallbladder problem and No black,tarry stools Reji Hematologic: No blood thinners, No blood disorders, No bleeding, No anemia and No blood clots Neuro Neurologic: No numbness, No tingling and No weakness Exam Const General: cooperative Orientation: alert and oriented x3 HENMT Head: normal to inspection Neck Neck: normal visual inspection and full ROM Chest Chest palpation & inspection: normal inspection of the chest Resp Effort & Inspection: normal respiratory effort Auscultation: clear to auscultation bilaterally Cardio Rate: regular rate Rhythm: regular rhythm GI Inspection: non-distended Palpation: soft and nontender Skin General: no rashes or lesions noted Neuro General: patient alert and patient oriented x3 Extrem General: full ROM Psych Appearance: grossly normal Mental Status: mental status grossly normal Assessment and Plan Assessment and Plan (1) Encounter for adjustment and management of vascular access device: Status: Acute Plan: The patient is here to discuss chest port placement. I discussed right chest with placement with her in detail. I discussed the risks including but limited to bleeding, infection, pneumothorax or line infection and DVT. Patient understands the risks and is willing to proceed. Giuseppe Knox MD Pager: [facility] [address] [place] [address], [address] [place] [address] Office: I have examined the patient and the H&P has been reviewed. There are no clinical changes since date of exam.
[2023-07-06] MEDS: Cefazolin 2 GM in 0.9% Normal Saline (100mL Bag) 100 ML IV (11:47)
[2023-07-06] MEDS: Bupivacaine Mpf 0.5% 30 ML VIAL (12:12)
[2023-07-06] MEDS: Lidocaine 1% /Epi 1:100 (20ml) 20 ML Vial (12:12)
--- NOTE | 2023-07-06 12:22 | RAD_ITS ---
INDICATION: line placement -- in pacu -- PORT PLACEMENT EXAMINATION/TECHNIQUE: X-RAY - XR Chest 1 View COMPARISON: No relevant prior comparison study available FINDINGS: LINES/DEVICES: Right-sided Port-A-Cath with the tip in the superior vena cava. LUNGS: No consolidation, edema or effusion. No pneumothorax. MEDIASTINUM AND CARDIOVASCULAR STRUCTURES: Cardiac silhouette not enlarged. Central airways and mediastinal contour are unremarkable. BONES AND SOFT TISSUES: Unremarkable. RAD/CXR for Line Placement IMPRESSION: No radiographic evidence of acute cardiopulmonary disease. Electronically Signed: Brenton Silverio MD at 12:37 EDT ,
--- NOTE | 2023-07-06 12:23 | PCM.OPRPT ---
Report of Operation Date of Procedure: 07/06/23 Pre-Operative Diagnosis: Need for vascular access for chemotherapy Post-Operative Diagnosis: Same Surgery/Procedure Performed:: Ultrasound and fluoroscopy guided right chest port placement utilizing right IJ Type of Anesthesia: Local MAC Specimen's removed: None Estimated Blood Loss (mL): 5 Description of Procedure: After obtaining informed consent patient was brought back to the operating room MAC anesthesia was induced and the right chest and neck were prepped in normal sterile fashion. Ultrasound was used to evaluate both IJs and the right IJ was selected. Next, using a needle, the right IJ was accessed and a guidewire was passed on into the superior vena cava under fluoroscopy guidance. A small incision was made over the puncture site and the dilator introducer was placed over the guidewire. Next this was capped and the pocket was made for the port. 1% lidocaine with epinephrine was injected in the proposed port site. An incision was made with scalpel. Electrocautery was used to make a pocket under the skin and subcutaneous tissue. Hemostasis was obtained. Next, the catheter was tunneled up to the neck incision site and placed through the introducer. The peel-away introducer was removed and the position of the catheter was confirmed on fluoroscopy. Next, the catheter was trimmed and attached to the port with the locking device. Interrupted 2-0 Vicryl sutures were used to anchor the port to the chest wall and then the port was placed inside the pocket. The pocket was then flushed with saline and the port irrigated with saline. There was good blood return and the port flushed easily. Next, heparin was injected into the port. The skin was closed with subcutaneous interrupted 3-0 Vicryl sutures. A single 3-0 Vicryl sutures placed under the skin at the neck incision site. Steri-Strips were placed as well as op sites. Patient tolerated procedure well, was taken to PACU in stable condition. Chest x-ray will be obtained. Grafts/Implants Used: 8 Vietnamese PowerPort Admit VTE Documentation VTE Mechan Device Prophylaxis: SCD's
--- NOTE | 2023-07-06 12:24 | DCINST_ITS ---
Discharge Instructions Procedure Port-A-Cath Diet Discharge Diet: Light diet - advance as tolerated (Pain medication may cause nausea. You should typically eat light foods as you take your pain medication.) Activity Discharge Activity: Return to Normal Activity and May Shower (with your bandage in place in 1-2 days after surgery. DO NOT SHOWER WHEN YOUR PORT IS ACCESSED.) Lifting Restrictions: 10 pounds for 2 to 3 days Additional Activity Instructions:: Alternate ibuprofen and Tylenol for pain Dressing / Incision Call your doctor if your incision/area has: Continuous Slow Oozing, Sudden Increased Bleeding, Increased Pain/ Swelling, Increased Redness and Foul Smelling Discharge Call your doctor if you observe: Fever of 101 or Higher Remove Dressing in: 2 days (Remove clear dressing in 2 days, remove Steri-Strips in 7 days.) Cleanse incision/area with: Soap & Water Follow Up Care Please Follow Up With: Giuseppe Knox MD When: as needed [phone] Test Results: Test results from this visit will be discussed in further detail at your follow- up appointment, if applicable. Discharge Plan Admission Attending Provider: Giuseppe Knox Primary Care Provider: Latasha Cloud NP Discharge Orders/Prescriptions Prescriptions: No Action losartan-hydrochlorothiazide 50-12.5 mg tablet 1 tab PO DAILY atorvastatin 20 mg tablet 20 mg PO QHS metoprolol succinate 50 mg tablet extended release 24 hr 50 mg PO DAILY bupropion HCl 100 mg tablet 100 mg PO BID cholecalciferol (vitamin D3) 50 mcg (2,000 unit) capsule 50 mcg PO DAILY Complex B-100 Tablet Extended Release 1 tab PO DAILY Multivitamin 50 Plus Tablet 1 tab PO DAILY triamcinolone acetonide [Nasacort] 55 mcg aerosol,spray 1 spray intranasal DAILY PRN (Reason: allergy symptoms) Rx Instructions: administer into each nostril acetaminophen [Tylenol 8 Hour] 650 mg tablet extended release 650 mg PO Q8H PRN PRN (Reason: pain) loratadine [Allergy Relief (loratadine)] 10 mg tablet 10 mg PO DAILY calcium carbonate [Calcium 600] 600 mg calcium (1,500 mg) tablet 600 mg PO DAILY docusate sodium [Colace] 100 mg capsule 100 mg PO BID PRN PRN (Reason: constipation) nystatin 100,000 unit/gram powder 1 applic topical DAILY PRN PRN (Reason: SKIN) triamcinolone acetonide 0.1 % cream 1 applic topical QWEEK PRN (Reason: SKIN) Rx Instructions: 1 applic topically 3 times weekly; PRN; prochlorperazine maleate 10 mg tablet 10 mg PO Q6H PRN (Reason: nausea and vomiting) Qty: 30 2RF ondansetron 8 mg tablet,disintegrating 8 mg PO Q8H PRN (Reason: nausea and vomiting) Qty: 30 2RF lidocaine-prilocaine 2.5-2.5 % cream 1 applic topical ONCE PRN (Reason: port access) 30 Days Qty: 30 2RF levothyroxine 200 mcg tablet 200 mcg PO DAILY Referrals / Follow Up: Latasha Cloud TRANSPORTATION WORKER, TRANSPORTATION WORKER-C [Primary Care Provider] - Disposition Disposition (needs filled in before D/C Order can be placed): Home, Self Care
--- NOTE | 2023-07-14 11:46 | CASEMGMT ---
Outpatient Perfect Bind Machine Operator 07/14/23: This healthcare social worker (sw) was introduced to patient during patient's scheduled oncology appointment. Sw introduced self and explained sw role. Patient was referred to social work due to emotional distress referral. Patient states that she has limited supports at this time. Patient is a , and reports it has been difficult to find her way after the loss of her several years ago. Patient reports that she has children, they do not live close to her but they are a support. Patient disclosed that she has been struggling with crying, grief, and uncertainty. Much emotional support and counseling provided. Sw discussed starting the day with thoughts of gratitude and things that patient is thankful for. Sw and patient also discussed patient writing down things at the end of the day that made her happy/ smile/ thankful. Patient states that she will work on implementing these tactics. Sw broached that there are skills to help distract negative thought loops and that social work can return at later time to meet with patient. Patient receptive to follow up support from social work. Og Latham, PRODUCTION LEAD, FLY FRAME TENDER
== END 2023-07-06 13:35 | disposition home or self-care (01) ==
LOC: SDC 10:45 → AC 10:46
PROVIDERS: PCP Nurse Practitioner Family; Referring Provider Nurse Practitioner Family; Visit Provider Surgery
PROC: (CPT 36561; principal; 2023-07-06 12:15)
DX: Z45.2 Encounter for adjustment and management of vascular access device (principal); C51.9 Malignant neoplasm of vulva, unspecified; E66.01 Morbid (severe) obesity due to excess calories; I10 Essential (primary) hypertension; E78.00 Pure hypercholesterolemia, unspecified; Z79.899 Other long term (current) drug therapy; Z79.890 Hormone replacement therapy; E89.0 Postprocedural hypothyroidism; Z68.38 Body mass index [BMI] 38.0-38.9, adult
CPT/HCPCS: 36561; 00532; 71045; 77001; J7120; C1788; J2405

== ENCOUNTER 2023-08-25 17:06 | Inpatient (IN) | payer MEDICARE, SELFPAY ==
[2023-08-25 18:19] VITALS: BP 140/62; PULSE 98; RESP 17; TEMP 36.6; O2SAT 99; BMI 35.1
[2023-08-25 20:10] VITALS: O2SAT 97
[2023-08-25 20:12] VITALS: BP 142/68; PULSE 69; RESP 16; TEMP 36.6; O2SAT 99
[2023-08-25] MEDS: Atorvastatin Calcium 20 MG Tablet PO (20:22)
[2023-08-25] MEDS: buPROPion 100 MG Tablet PO (20:23)
[2023-08-25] MEDS: Acetaminophen 500 MG Tablet PO (23:33)
[2023-08-26] MEDS: Levothyroxine 100 MCG Tablet 200 MCG PO (05:42)
[2023-08-26 06:55] VITALS: O2SAT 98
[2023-08-26 07:27] LABS: Hematocrit 20.9 % (37-47); Mean Corp Hgb Conc 33.5 g/dL (32-36); Mean Corpuscular Hgb 29.2 pg (27.0-32.0); Mean Corpuscular Volume 87.1 fL (81-99); Mean Platelet Vol. 10.6 fl (6.2-12.0); Platelet Count 153 K/mm3 (150-450); RBC Distribution Width CV 14.9 % (11.6-14.6); RBC Distribution Width SD 45.4 fl (35.1-43.9); White Blood Count 3.2 K/mm3 (4.4-11.0)
--- NOTE | 2023-08-26 07:57 | NURSING ---
Rt chest mediport accessed for blood draws d/t poor peripheral venous access. Using sterile technique, site cleansed w/ chloraprep and allowed to dry, 3/4 mcclellan needle used to access port, flushed w/ 10 ml NS and flushes w/ ease, good blood return, sterile 2x2s in access kit placed inferior to mcclellan needlle, and secured w/ opsite. Curos cap applied to end cap previously primed w/ NS. Pt tolerated well.
[2023-08-26 08:00] LABS: ALB/GLOB Ratio 0.8 RATIO (0.9-2.4); AST(SGOT) 28 U/L (15-37); Alanine Aminotransfer ALT/SGPT 35 U/L (13-56); Albumin, Serum 2.5 g/dL (3.2-5.0); Alkaline Phosphatase 114 U/L (45-117); Anion Gap 10 (5-15); BUN 15 mg/dL (7-18); BUN/Creat Ratio 10.3 RATIO (10-20); Calcium,Total 7.4 mg/dL (8.5-10.1); Chloride 104 mmol/L (98-107); Creatinine, Serum 1.45 mg/dL (0.55-1.02); EST Glomerular Filtration Rate 38 mL/min (>60); Est Glom Filt Rate - Afr Amer 46 mL/min (>60); Estimated Creatinine Clearance 41.53 ml/min; Globulin 3.3 g/dL (2.2-4.2); Glucose 88 mg/dL (74-106); Magnesium 1.3 mg/dL (1.6-2.6); Phosphorus 2.1 mg/dL (2.5-4.9); Potassium 3.1 mmol/L (3.5-5.1); Protein, Total 5.8 g/dL (6.4-8.2); Sodium Level 138 mmol/L (136-145); T4 Free Direct 1.43 ng/dL (0.76-1.46)
[2023-08-26 08:38] VITALS: BP 132/68; PULSE 79; RESP 16; TEMP 36.6; O2SAT 97
[2023-08-26] MEDS: Ensure Plus High Protein 120 ML LIQUID PO ×3 (08:42→17:51)
[2023-08-26] MEDS: dexAMETHasone 4 MG Tablet 8 MG PO (08:43)
[2023-08-26] MEDS: Loratadine 10 MG Tablet PO (08:43)
[2023-08-26] MEDS: Losartan Potassium 50 MG Tablet PO (08:44)
[2023-08-26 08:45] VITALS: BP 146/62; PULSE 79
[2023-08-26] MEDS: buPROPion 100 MG Tablet PO (08:45)
[2023-08-26] MEDS: Cholecalciferol (VIT D3) 25 MCG TABLET (1,000 UNITS) 50 MCG PO (08:45)
[2023-08-26] MEDS: Metoprolol(XL)Succ 50 MG Tablet PO (08:45)
[2023-08-26 10:32] VITALS: BP 132/68; PULSE 79; RESP 16; TEMP 36.6; O2SAT 97
[2023-08-26 11:31] VITALS: BP 145/72; BP 152/78; PULSE 103; PULSE 78; PULSE 94
--- NOTE | 2023-08-26 11:31 | PCM.HP.STD ---
[facility] - General General Date of Admission: 08/25/23 Date of Service: 08/26/23 Chief Complaint: Debility due to generalized weakness. HPI Narrative CEE TELLEZ, is a 73 YO F with a PMH of recurrent vulvar squamous cell carcinoma, papillary, noninvasive breast CA in situ(treated with lumpectomy in September 2022 - refused adjuvant hormonal therapy and radiation and opted for surveillance only), depression/anxiety, hypothyroidism, fatty infiltration of the liver, hyperlipidemia, B12 deficiency, vitamin D deficiency, essential hypertension and obesity who recently underwent treatment with Cisplatin and radiation for a local recurrence of Vulvar CA. She lives alone and has been getting progressively weaker. She has had poor appetite/intake and has lost weight. She has desquamation of the perineum due to radiation and has a yeast infection with bacterial overgrowth. She complains of patchy burning of the perineum with urination. She denies fevers, night sweats, shaking chills. She has noticed an odor from her perineum. She denies Flank pain. She has had nausea and occasional vomiting and has been taking scheduled Zofran and PRN Compazine to control this. She denies diarrhea or constipation. She feels very tired and she has had some difficulty sleeping recently. She admits to feeling anxious and at times depressed and tearful. At the present time she is not able to adequately care for help herself at home and Dr. Issa and Dr. Reveles referred her to acute rehab. She has not been able to take PO Potassium and magnesium supplements and has been requiring IV infusions. She was last seen in oncology on 08/25/23 and received IV medication for Hypokalemia, hypophosphatemia and hypomagnesemia. She was admitted to the acute inpt rehab unit on 08/25/23 for strengthening so that she may return home alone at her previous level of function/independence prior to recent radiation and chemo. Has been doing Domeboro sitz bathes at home and thinks they have been helping with the perineal discomfort. Some areas of the perineum are numb. Afebrile VSS - Maintaining appropriate oxygen saturation on RA Discussed with nursing - no problems that need addressed Medication list reviewed. All lab drawn this morning was personally reviewed. The white blood cell count is low at 3.2, down from 3.9 on 08/23/2023. Hemoglobin is 7, down from 8.0 on 08/23/2023. MM are very dry and I suspect the HGB may actually be lower than this because I think she is hemoconcentrated currently. Platelets are within normal limits. MCH and MCV are both normal. Sodium is 138. Potassium is low at 3.1 but it was 2.7 yesterday and she did receive supplementation yesterday in oncology. The BUN is 15 and the creatinine is 1.45. On 06/23/2023 the creatinine was normal at 0.91. Calcium is 7.4 but when corrected for hypoalbuminemia calcium is low normal at 8.6. Phosphorus is low at 2.1 but was 1.5 on 08/24/2023. Magnesium is low at 1.3 which is down from 1.8 yesterday. LFTs are unremarkable. Vitamin D is normal at 55.7. The TSH is elevated at 12.4 but the T4 is high normal at 1.43. [facility] Medical History (Updated 08/26/23 @ 14:[address] Ev Broussard, ) Encounter for adjustment and management of vascular access device Pre-procedure lab exam Depression Prerenal azotemia CINV (chemotherapy-induced nausea and vomiting) Wears glasses Post-menopausal Cancer Anxiety Thyroid disease Fatty liver High cholesterol Non-smoker Shortness of breath on exertion History of pain when walking History of edema History of echocardiogram Cardiology follow-up encounter Encounter for education Neoplasm of right breast, primary tumor staging category Tis: ductal carcinoma in situ (DCIS) Vitamin B12 deficiency Vitamin D deficiency Morbid obesity Dyslipidemia Depressive disorder Benign essential hypertension Irregular heartbeat Lichen sclerosus of female genitalia Home Medications ?Medication ?Instructions ?Recorded ?Last Taken ?Type acetaminophen 650 mg 650 mg PO Q8H PRN PRN pain 11/05/22 Unknown History tablet,extended release (Tylenol 8 Hour) atorvastatin 20 mg tablet 20 mg PO QHS Cholesterol 11/05/22 07/05/23 History bupropion HCl 100 mg tablet 100 mg PO BID Mood 11/05/22 07/06/23 History calcium carbonate (Calcium 600) 600 mg PO DAILY Supplement 11/05/22 07/05/23 History cholecalciferol (vitamin D3) 50 50 mcg PO DAILY Supplement 11/05/22 07/05/23 History mcg (2,000 unit) capsule loratadine 10 mg tablet (Allergy 10 mg PO DAILY Allergies 11/05/22 07/05/23 History Relief (loratadine)) metoprolol succinate 50 mg 50 mg PO DAILY BP 11/05/22 07/06/23 History tablet,extended release 24 hr [id number] 1 tab PO DAILY supplement 11/05/22 07/05/23 History tablet (Multivitamin 50 Plus tablet) triamcinolone acetonide 55 mcg 1 spray intranasal DAILY PRN 11/05/22 07/05/23 History nasal spray aerosol (Nasacort) allergy symptoms vitamin B complex (Complex B-100 1 tab PO DAILY supplement 11/05/22 07/05/23 History tablet,extended release) docusate sodium 100 mg capsule 100 mg PO BID PRN PRN constipation 11/11/22 Unknown History (Colace) nystatin 100,000 unit/gram topical 1 applic topical DAILY PRN PRN SKIN 11/11/22 07/05/23 History powder lidocaine-prilocaine 2.5 %-2.5 % 1 applic topical ONCE PRN port 06/30/23 Unknown Rx topical cream access 30 days #30 grams prochlorperazine maleate 10 mg 10 mg PO Q6H PRN nausea and 06/30/23 Unknown Rx tablet vomiting #30 tabs levothyroxine 200 mcg tablet 200 mcg PO DAILY Thyroid 07/05/23 07/06/23 History losartan 50 mg tablet 50 mg PO DAILY BP 07/20/23 Unknown History dexamethasone 4 mg tablet 8 mg (2 x 4 mg) PO DAILY Steroid 07/26/23 Unknown Rx #6 tabs magnesium oxide 500 mg PO DAILY Supplement 07/26/23 Unknown History ondansetron 8 mg disintegrating 8 mg PO Q8H nausea and vomiting 08/23/23 Unknown History tablet Allergy/AdvReac Type Severity Reaction Status Date / Time adhesive tape AdvReac Intermediate Rash Verified 08/24/23 13:46 pamprin Allergy Unknown hives Uncoded 08/24/23 13:46 pollen Allergy rhinitis Uncoded 08/24/23 13:46 Family History Father Asthma Heart disease COPD (chronic obstructive pulmonary disease) smoker Mother Arthritis Hypertension Kidney disease Grandmother Cancer paternal - thinks it was breast but can't confirm Brother Alcohol abuse Surgical History History of lumpectomy of right breast History of dilation and curettage History of parathyroidectomy History of thyroidectomy History of vulvectomy History of right breast biopsy Social History (Updated 08/26/23 @ 12:[address] 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 Smoking Status: Never smoker alcohol intake: never substance use type: does not use caffeine: Yes (Occasionally ) ROS Constitutional Constitutional: Reports anorexia, difficulty sleeping, fatigue, headache(s), poor appetite, weakness and weight loss; Denies change in weight, chills, fever(s) or night sweats Eyes Eyes: Denies blurry vision, change in vision, eye pain or loss of vision ENT HEENT: Reports dry mouth; Denies abnormal hearing, dysphagia, headache(s), hearing loss, mouth pain, nasal congestion or sore throat Cardiovascular Cardiovascular: Denies chest pain, dyspnea on exertion, edema, lightheadedness, orthopnea, palpitations, paroxysmal nocturnal dyspnea or syncope Respiratory/Chest Respiratory/Chest: Denies cough, dyspnea, shortness of breath at rest, shortness of breath with exertion or wheezing Gastrointestinal Gastrointestinal: Reports nausea, taste impaired, vomiting and weight changes; Denies abdominal pain, constipation, diarrhea, dyspepsia, hematemesis or hematochezia Genitourinary Genitourinary: Reports dysuria and other Details: the dysuria occurs when she first starts to urinate the the urine hits the desquamated areas of the vulva. Denies suprapubic pain and flank pain. No urgency ; Denies hematuria, nocturia, urinary frequency, urinary hesitancy, urinary incontinence or urinary urgency Musculoskeletal Musculoskeletal: Denies back pain, joint pain, joint swelling or neck pain Integumentary Integumentary: Denies jaundice or rash Neurologic Neurologic: Reports headache(s), numbness, weakness and other Details: She has patchy numbness of the perineum ; Denies confusion, disequilibrium, dizziness, focal weakness, paresthesias, seizures, syncope or tremor(s) Psychiatric Psychiatric: Reports abnormal sleep pattern, anxiety, change in appetite and depression; Denies auditory hallucinations, cognitive impairment, confusion, homicidal ideation, memory loss, suicidal ideation or visual hallucinations Endocrine Endocrinology: Denies change in body appearance, polydipsia or polyuria Hematologic/Lymphatic Hematologic/Lymphatic: Reports easy bleeding; Denies easy bruising or lymphadenopathy Allergic/Immunologic Allergic/Immunologic: Denies rhinitis, eczemia or asthma Vital Signs Vital Signs Vital Signs: 08/25/23 18:19 08/25/23 20:10 08/25/23 20:12 Temperature 98 F 97.9 F Temperature Source Temporal Temporal Pulse Rate 98 69 Pulse Strength Respiratory Rate 17 16 Respiratory Effort Respiratory Depth Respiratory Pattern Blood Pressure 140/62 H 142/68 H Blood Pressure Mean 88 92 Blood Pressure Source Monitor Monitor Blood Pressure Position Semi-Fowlers Semi-Fowlers Blood Pressure Location Left Arm Left Arm Pulse Ox 99 97 99 Oxygen Delivery Method Room Air Room Air Room Air 08/25/23 22:00 08/26/23 06:55 08/26/23 08:38 Temperature 97.9 F Temperature Source Temporal Pulse Rate 79 Pulse Strength Respiratory Rate 16 Respiratory Effort Normal Non-Labored Respiratory Depth Normal Respiratory Pattern Normal Blood Pressure 132/68 H Blood Pressure Mean 89 Blood Pressure Source Monitor Blood Pressure Position Sitting Blood Pressure Location Left Arm Pulse Ox 98 97 Oxygen Delivery Method Room Air Room Air Room Air 08/26/23 08:45 08/26/23 10:00 08/26/23 10:32 Temperature 97.9 F Temperature Source Temporal Pulse Rate 79 79 Pulse Strength Normal (2+) Respiratory Rate 16 Respiratory Effort Respiratory Depth Respiratory Pattern Blood Pressure 146/62 H 132/68 H Blood Pressure Mean 89 Blood Pressure Source Blood Pressure Position Blood Pressure Location Pulse Ox 97 Oxygen Delivery Method Room Air Weight Weight: 223 lb 8.78 oz Body Mass Index (BMI) 35.1 Physical Exam Const alert, oriented x3 and no apparent distress Constitutional Narrative: pale General Appearance: cooperative and well kempt HEENT HEENT Narrative: Dry MM. No evidence of thrush. The posterior pharynx has no erythema, injection or exudate. She has missing teeth but, I do not see any obvious caries. Head and Scalp: normocephalic and atraumatic Eyes PERRL, EOMs intact bilaterally, conjunctivae normal and no scleral icterus Eyes Narrative: No discharge from the eyes and no mattering of the eyelashes. Neck supple, No nodes and no carotid bruits General: trachea midline Chest Chest Narrative: nedra cath present. Chest: symmetrical chest wall rise Resp normal respiratory effort, normal air movement, no use of accessory muscles and clear to auscultation bilaterally Resp Narrative: Not tachypneic Effort and Inspection: able to speak in complete sentences Cardio regular rate, regular rhythm, no murmurs, no rub and no gallops Cardio Narrative: occasional early beat. Jugular Venous Distention: Negative for JVD GI normal to inspection, nondistended, normoactive bowel sounds, soft to palpation and non-tender GI Narrative: No guarding with palpation Narrative: Moist DC present beneath the pannus and in the folds of the groin and over the mons. Some foul smelling moist yellow/white exudate present over the mons and the vulva. Marked erythema due to recent radiation for recurrent vulvar cancer. Desquamation over the mons and the vulva Extremity no calf tenderness and no pedal edema Extremity Narrative: pedal pulses are 2+ BL, no clubbing, no red swollen joints. Pale nailbeds. Skin Skin Narrative: See dictation. General Skin Exam: desquamation, erythema and dermatitis; Negative for jaundice Neuro oriented x3, CN's II-XII intact bilaterally, moves all extremities and no focal motor deficits Psych mental status grossly normal, thought process normal and cooperative Psych Narrative: Seems a anxious. Not tearful with me but, this happens at times when she feels overwhelmed. Appearance: grossly normal, appropriate and well kempt Attitude: calm Activity / Motor Behavior: appropriate eye contact Speech: normal speech Results Lab / Micro Data 08/26/23 06:50 08/26/23 06:50 Labs: Laboratory Results - last 24 hr 08/26/23 06:50: WBC 3.2 L, RBC 2.40 L, Hgb 7.0 L, Hct 20.9 L, MCV 87.1, MCH 29.2, MCHC 33.5, RDW Std Deviation 45.4 H, RDW Coeff of Zaina 14.9 H, Plt Count 153, MPV 10.6, Sodium 138, Potassium 3.1 L, Chloride 104, Carbon Dioxide 24.0, Anion Gap 10, BUN 15, Creatinine 1.45 H, Estim Creat Clear Calc 41.53, Est GFR (MDRD) Af Amer 46 L, Est GFR (MDRD) Non-Af 38 L, BUN/Creatinine Ratio 10.3, Glucose 88, Calcium 7.4 L, Phosphorus 2.1 L, Magnesium 1.3 L, Total Bilirubin 0.30, AST 28, ALT 35, Alkaline Phosphatase 114, Total Protein 5.8 L, Albumin 2.5 L, Globulin 3.3, Albumin/Globulin Ratio 0.8 L, TSH 12.40 H, Free T4 1.43 Assessment & Plan Assessment/Plan (1) Physical debility: (2) Generalized weakness: (3) Chemotherapy adverse reaction: QUALIFIERS: Encounter type: subsequent encounter Qualified Code(s): T45.1X5D - Adverse effect of antineoplastic and immunosuppressive drugs, subsequent encounter PLAN: Cisplatin induced ELYTE disturbances. N/V/weight loss/anemia/leukopenia, ARF/dysgeusia. (4) CINV (chemotherapy-induced nausea and vomiting): (5) Prerenal azotemia: (6) Radiation dermatitis: PLAN: To the perineum. Associated with beau and bacterial overgrowth. (7) Acute on chronic anemia: PLAN: Type and screen today. Check a Hemoccult stool. Recheck a H&H in the a.m. (8) Beau infection: (9) Hypophosphatemia: (10) Hypomagnesemia: (11) Hypokalemia: (12) Dehydration: (13) Anxiety: (14) Depression: QUALIFIERS: Depression Type: persistent depressive disorder Qualified Code(s): F34.1 - Dysthymic disorder (15) Recurrent vulvar squamous cell carcinoma: (16) Morbid obesity: (17) Dyslipidemia: (18) Benign essential hypertension: PLAN: Plan PLAN PT for gait stability OT for ADL's ST for evaluation Analgesics as needed Bowel protocol Fall precautions Assess for Anxiety/Depression GI prophylaxis -not indicated at this time DVT prophylaxis with Lovenox 40 mg subcu daily and LIA hose Follow up with PCP and oncology following DC from IP Rehab AM lab including CMP, CBC, Mag, phos, TSH and T4 all personally reviewed. Supplement K, MAG and phos and recheck lab in the AM Domeboro solution soaks 3 times daily for 10 to 15 minutes The compounding pharmacist will make up a cream containing Calmoseptine as the base with an antifungal and Silvadene to apply 3 times daily to the perineum following Domeboro soaks. TSH is elevated but the T4 is high normal so no changes to the Levothyroxine dose at this time. Change the Wellbutrin to XL 150 mg once daily in the AM Add Buspar 5 mg TID for anxiety Start Jamaal BID to aid in wound healing pupil personnel services director consult Start Vitamin C, E and zinc to aid in wound healing. Put in a PRN order for Kristi at [facility] for insomnia Charges/Coding Visit Charges Inpatient E&M: 99299 Init Hosp L3
[2023-08-26] MEDS: Na Biphos/Potassium Phosphate PACKET 1 PACKET PO ×2 (12:40→17:50)
[2023-08-26] MEDS: busPIRone 5 MG Tablet PO ×2 (12:40→21:13)
[2023-08-26] MEDS: Magnesium Sulfate 4gm/100mL 4 GM/100 ML IV.SOLN. IV (12:53)
[2023-08-26] MEDS: 0.9 % NaCl (Sterile) Posiflush 10 mL IV (12:54)
[2023-08-26] MEDS: 0.9% Normal Saline 250 ML IV.SOLN. IV (12:54)
[2023-08-26] MEDS: NON-FORMULARY 1 TOPICAL ×2 (13:01→21:14)
[2023-08-26 13:29] LABS: Vitamin D,25 Hydroxy 55.7 ng/mL
--- NOTE | 2023-08-26 14:23 | REHABEVAL_ITS ---
Admission Information Primary Diagnosis:: Debility due to generalized weakness Status Changes from Prescreening?: No changes Identified Actual Problem List:: Infection, Skin Intergrity, Pain, ALteration in Cmfrt, Depression, Alteration in Sleep, Alteration in Nutrition, Mobility Impaired, Fluid Change-Dehydration and Alteration-Leisure Activ. Potential Problem List:: DVT, Bleeding, Infection, UTI, Aspiration, Falls, Skin Integrity and Depression Risk of Complications DVT: LMWH and LIA Hose Bleeding: Monitor Lab Values, Nursing to Teach Precautions for anti-coagulation therapy., Wound, if applicable, to be assessed every shift. and Stroke patients assessed for lethargy or change in status. Infection: Clinical Staff to Monitor for S/S of infection: and S/S of infection include fever, redness, warmth, etc. Urinary Tract Infection: Monitor for frequency, burning, discomfort, or incontinence. and Nursing will obtain urine sample for urinalysis and C&S when ordered. Aspiration: Clinical staff will monitor for coughing, drooling, congestion., Speech will evaluate swallowing and dsyphasia. and Nursing will monitor patient swallowing during meals. Falls: Patient will be evaluated for Fall Precautions and Patient will be placed on Fall Precautions as indicated per protocol. Skin Breakdown: Nursing will assess skin daily using assessment tool. and Nursing will place on Skin Breakdown Precautions as indicated. Pain: Clinical staff will assess patient's pain level per protocol., Medications will be given, if needed, and the pain level reassessed. and Other methods: Massage, distraction, decrease stimulus, etc. used PRN. Plan of Care Patient requires physician specializing in physical medicine and rehab oversight to provide close medical supervision of rehab issues including: Pain Management, Sleep Problems, Bowel and Bladder, Medical and co-morbidity Management, DVT prophylaxis, Rehabilitation Leadership and Coordination of treatment team Patient needs Physical Therapy: For a minimum of 1 hour and At least 5 out of 7 days Patient needs Physical Therapy to improve:: Mobility, Strengthening, Transfers, Stretching, ROM, Endurance, Stairs, Gait and Balance Patient needs Occupational Therapy: For a minimum of 1 hour and At least 5 out of 7 days Patient needs Occupational Therapy to improve ADL's incl.: Eating, Grooming, Bathing, Dressing, Toileting, Toilet transfers, Community Reintegration, Higher functioning activities, Household tasks, Adaptive Equipment, Splinting and Other activities as determined Patient requires 24/ Rehabilitation Nursing for: Pain Issues, Identifying and preventing risk factors, Monitoring and reporting current medical conditions, Assisting with ambulation, transfer, and all ADL's, Teaching patients about disease process and medications, Family teaching, Providing safe environment, Bowel and Bladder Issues, Skin integrity and Medication Management Patient needs Burial Vault Deliverer And Installer/ Case Management for: Discharge Planning, Arranging Home Equipment or Services and Family Interventions Patient needs Dietary and Nutrition Services for: Adequate Nutrition, Nutritional Supplements and Nutritional Education Goals Goals Patient will remain: free from falls Patient will perform eating at: MOD I level of assist. Patient will perform bed mobility at: MOD I level of assist. Patient will complete transfers from bed to chair at: MOD I level of assist. Patient will ambulate: - (750 feet without an assistive device) Patient will complete upper body dressing at: MOD I level of assist. Patient will complete lower body dressing at: MOD I level of assist. Patient will complete toilet transfer at: MOD I level of assist. Patient will complete toileting at: MOD I level of assist. Patient will perform bathing at: MOD I level of assist. Patient will perform Tub/Shower transfer at: - (Supervision using DME as needed.) Patient will complete grooming at: MOD I level of assist. Patient will complete home management skills at: MOD I level of assist. Patient will achieve: - (1 curb step independently) Patient will have pain level of: of 3 or less Patient's skin will: remain intact Patient will receive: adequate nutrition. Discharge Planning Pt Prognosis for Sig. Practical Improv. w/in Reasonable Time: Good Estimated Length of stay (days): 28 Anticipated D/C Destination: Home with Outpt Therapy
[2023-08-26] MEDS: Potassium Chloride Oral Tablet 10 MEQ 20 MEQ PO ×3 (14:41→21:13)
--- NOTE | 2023-08-26 15:32 | CHAPLAIN ---
Type of Pastoral Visit _x__ Initial Visit ___ Follow-up Visit ___ On-call Visit ___ General Patient Visit ___ Spiritual Assessment ___ Family Conference ___ Bereavement ___ Rapid Response ___ Code Blue ___ Other (describe below) Pastoral Care Referral From _x__ Patient ___ Family ___ Nurse ___ Physician ___ Director Case ___ Clinical Application Specialist ___ Other (describe below) Sacrament/Intervention _x__ Active listening ___ Anointing ___ Yazdanism ___ Bereavement ___ Communion ___ Kinjal exploration ___ ___ Life review _x__ Prayer ___ Reconciliation ___ Sacrament of Sick _x__ Supportive presence ___ Wedding ___ Other (describe below) Pastoral Comments patient was settling in for a rest when this bone char puller came to room; introduced self and role; pt explains that she just finished her chemo and radiation treatments this week and is now here for rehab and strength improvement; pt is welcoming of spiritual care and states that her kinjal sustained her during this difficult time; pt explains that she is feeling overwhelmed today with everything being so new and so much happening; pt expresses goal with hope that she can go home to her own place after living with relatives during her cancer treatments; prayer and presence given; follow up visit would be appreciated
[2023-08-26] MEDS: Acetaminophen 500 MG Tablet PO ×2 (15:53→22:01)
[2023-08-26] MEDS: Juven (unflavored) Packet 1 PACKET PO (17:52)
[2023-08-26 20:00] VITALS: BP 141/72; PULSE 86; RESP 17; TEMP 36.5; O2SAT 97
[2023-08-26] MEDS: Atorvastatin Calcium 20 MG Tablet PO (21:13)
[2023-08-26] MEDS: Calcium (Elemental) 500 MG Tablet PO (21:14)
[2023-08-26] MEDS: Magnesium Chloride 64 MG Delay Rel.Tablet 128 MG PO (21:14)
[2023-08-26] MEDS: 0.9% Saline Lock 10 ML Syringe IV (21:32)
[2023-08-27] MEDS: 0.9% Saline Lock 10 ML Syringe IV (05:41)
[2023-08-27] MEDS: Enoxaparin 40 MG/0.4 ML Syringe SC (05:41)
[2023-08-27] MEDS: Levothyroxine 100 MCG Tablet 200 MCG PO (05:41)
[2023-08-27] MEDS: Na Biphos/Potassium Phosphate PACKET 1 PACKET PO ×3 (05:42→17:03)
[2023-08-27] MEDS: busPIRone 5 MG Tablet PO ×3 (05:43→21:11)
[2023-08-27 06:10] LABS: Hematocrit 21.2 % (37-47); Hemoglobin 7.1 g/dL (12.0-15.0)
[2023-08-27 06:46] LABS: Anion Gap 5 (5-15); BUN 24 mg/dL (7-18); BUN/Creat Ratio 16.8 RATIO (10-20); Calcium,Total 8.2 mg/dL (8.5-10.1); Chloride 106 mmol/L (98-107); Creatinine, Serum 1.43 mg/dL (0.55-1.02); EST Glomerular Filtration Rate 38 mL/min (>60); Est Glom Filt Rate - Afr Amer 46 mL/min (>60); Estimated Creatinine Clearance 42.88 ml/min; Glucose 82 mg/dL (74-106); Magnesium 1.9 mg/dL (1.6-2.6); Phosphorus 2.4 mg/dL (2.5-4.9); Potassium 3.7 mmol/L (3.5-5.1); Sodium Level 137 mmol/L (136-145)
[2023-08-27] MEDS: Ascorbic Acid 500 MG Tablet 1000 MG PO (08:14)
[2023-08-27] MEDS: Vitamin E 400 UNITS Capsule PO (08:14)
[2023-08-27] MEDS: Loratadine 10 MG Tablet PO (08:15)
[2023-08-27] MEDS: Magnesium Chloride 64 MG Delay Rel.Tablet 128 MG PO ×2 (08:15→21:11)
[2023-08-27] MEDS: dexAMETHasone 4 MG Tablet 8 MG PO (08:15)
[2023-08-27] MEDS: Juven (unflavored) Packet 1 PACKET PO (08:15)
[2023-08-27] MEDS: Losartan Potassium 50 MG Tablet PO (08:15)
[2023-08-27] MEDS: Zinc Sulfate 50 mg zinc (220 mg) ORAL capsule PO (08:16)
[2023-08-27] MEDS: Vitamin B Comp W-C Capsule 1 CAP PO (08:16)
[2023-08-27] MEDS: Cholecalciferol (VIT D3) 25 MCG TABLET (1,000 UNITS) 50 MCG PO (08:16)
[2023-08-27] MEDS: Multivitamins,Ther W-Minerals Tablet 1 TABLET PO (08:17)
[2023-08-27] MEDS: buPROPion (XL) 150 MG TABLET.XL PO (08:17)
[2023-08-27 08:18] VITALS: PULSE 72
[2023-08-27] MEDS: Metoprolol(XL)Succ 50 MG Tablet PO (08:18)
[2023-08-27] MEDS: NON-FORMULARY 1 TOPICAL ×3 (08:24→21:16)
[2023-08-27] MEDS: Ensure Plus High Protein 120 ML LIQUID PO ×2 (08:24→13:06)
[2023-08-27 08:48] VITALS: BP 143/68; PULSE 72; RESP 18; TEMP 37.1; O2SAT 96
[2023-08-27 20:00] VITALS: BP 127/72; PULSE 85; RESP 17; TEMP 36.4; O2SAT 98
[2023-08-27] MEDS: Calcium (Elemental) 500 MG Tablet PO (21:10)
[2023-08-27] MEDS: Atorvastatin Calcium 20 MG Tablet PO (21:11)
[2023-08-27] MEDS: Acetaminophen 500 MG Tablet PO (21:15)
[2023-08-28] MEDS: NON-FORMULARY 1 TOPICAL ×3 (04:52→21:24)
[2023-08-28] MEDS: Enoxaparin 40 MG/0.4 ML Syringe SC (04:55)
[2023-08-28] MEDS: Na Biphos/Potassium Phosphate PACKET 1 PACKET PO ×3 (05:24→17:03)
[2023-08-28] MEDS: Levothyroxine 100 MCG Tablet 200 MCG PO (05:24)
[2023-08-28] MEDS: busPIRone 5 MG Tablet PO ×3 (05:24→21:24)
[2023-08-28] MEDS: Acetaminophen 500 MG Tablet PO ×2 (05:45→22:06)
[2023-08-28 07:08] VITALS: O2SAT 98
[2023-08-28] MEDS: dexAMETHasone 4 MG Tablet 8 MG PO (08:11)
[2023-08-28] MEDS: Cholecalciferol (VIT D3) 25 MCG TABLET (1,000 UNITS) 50 MCG PO (08:11)
[2023-08-28] MEDS: Juven (unflavored) Packet 1 PACKET PO (08:11)
[2023-08-28] MEDS: Ascorbic Acid 500 MG Tablet 1000 MG PO (08:11)
[2023-08-28 08:12] VITALS: PULSE 68
[2023-08-28] MEDS: Vitamin B Comp W-C Capsule 1 CAP PO (08:12)
[2023-08-28] MEDS: Loratadine 10 MG Tablet PO (08:12)
[2023-08-28] MEDS: Magnesium Chloride 64 MG Delay Rel.Tablet 128 MG PO ×2 (08:12→21:24)
[2023-08-28] MEDS: Multivitamins,Ther W-Minerals Tablet 1 TABLET PO (08:12)
[2023-08-28] MEDS: buPROPion (XL) 150 MG TABLET.XL PO (08:12)
[2023-08-28] MEDS: Metoprolol(XL)Succ 50 MG Tablet PO (08:12)
[2023-08-28] MEDS: Zinc Sulfate 50 mg zinc (220 mg) ORAL capsule PO (08:12)
[2023-08-28] MEDS: Vitamin E 400 UNITS Capsule PO (08:12)
[2023-08-28] MEDS: Losartan Potassium 50 MG Tablet PO (08:14)
[2023-08-28 08:15] VITALS: BP 133/61; PULSE 68; RESP 15; TEMP 36.1; O2SAT 96
[2023-08-28] MEDS: Ensure Plus High Protein 120 ML LIQUID PO ×3 (08:17→21:26)
[2023-08-28] MEDS: Loperamide 2 MG Capsule 4 MG PO (14:25)
[2023-08-28 21:00] VITALS: BP 134/72; PULSE 90; RESP 18; TEMP 36.2; O2SAT 97
[2023-08-28] MEDS: Calcium (Elemental) 500 MG Tablet PO (21:24)
[2023-08-28] MEDS: Atorvastatin Calcium 20 MG Tablet PO (21:24)
[2023-08-28] MEDS: 0.9 % NaCl (Sterile) Posiflush 10 mL IV (21:30)
[2023-08-29] MEDS: busPIRone 5 MG Tablet PO ×3 (05:20→22:05)
[2023-08-29] MEDS: Levothyroxine 100 MCG Tablet 200 MCG PO (05:20)
[2023-08-29] MEDS: Na Biphos/Potassium Phosphate PACKET 1 PACKET PO ×3 (05:21→18:03)
[2023-08-29] MEDS: NON-FORMULARY 1 TOPICAL ×3 (05:22→22:05)
[2023-08-29] MEDS: Juven (unflavored) Packet 1 PACKET PO (08:27)
[2023-08-29] MEDS: Multivitamins,Ther W-Minerals Tablet 1 TABLET PO (08:27)
[2023-08-29] MEDS: Magnesium Chloride 64 MG Delay Rel.Tablet 128 MG PO ×3 (08:28→22:05)
[2023-08-29] MEDS: Ascorbic Acid 500 MG Tablet 1000 MG PO (08:28)
[2023-08-29] MEDS: Zinc Sulfate 50 mg zinc (220 mg) ORAL capsule PO (08:28)
[2023-08-29 08:29] VITALS: BP 144/70; PULSE 74
[2023-08-29] MEDS: Loratadine 10 MG Tablet PO (08:29)
[2023-08-29] MEDS: Cholecalciferol (VIT D3) 25 MCG TABLET (1,000 UNITS) 50 MCG PO (08:29)
[2023-08-29] MEDS: Vitamin B Comp W-C Capsule 1 CAP PO (08:29)
[2023-08-29] MEDS: Metoprolol(XL)Succ 50 MG Tablet PO (08:29)
[2023-08-29] MEDS: buPROPion (XL) 150 MG TABLET.XL PO (08:29)
[2023-08-29] MEDS: Vitamin E 400 UNITS Capsule PO (08:30)
[2023-08-29] MEDS: Losartan Potassium 50 MG Tablet PO (08:30)
[2023-08-29] MEDS: Enoxaparin 40 MG/0.4 ML Syringe SC (09:48)
[2023-08-29 09:57] LABS: Hematocrit 22.6 % (37-47); Hemoglobin 7.5 g/dL (12.0-15.0); Mean Corp Hgb Conc 33.2 g/dL (32-36); Mean Corpuscular Hgb 29.4 pg (27.0-32.0); Mean Corpuscular Volume 88.6 fL (81-99); Mean Platelet Vol. 10.3 fl (6.2-12.0); Platelet Count 208 K/mm3 (150-450); RBC Distribution Width SD 47.9 fl (35.1-43.9); Red Blood Count 2.55 M/mm3 (4.2-5.4); White Blood Count 4.4 K/mm3 (4.4-11.0)
[2023-08-29 10:00] VITALS: BP 144/70; PULSE 74; RESP 17; TEMP 36.6; O2SAT 96
[2023-08-29 10:16] LABS: Anion Gap 7 (5-15); BUN 48 mg/dL (7-18); BUN/Creat Ratio 29.6 RATIO (10-20); Calcium,Total 8.5 mg/dL (8.5-10.1); Chloride 105 mmol/L (98-107); Creatinine, Serum 1.62 mg/dL (0.55-1.02); EST Glomerular Filtration Rate 33 mL/min (>60); Est Glom Filt Rate - Afr Amer 40 mL/min (>60); Estimated Creatinine Clearance 37.85 ml/min; Glucose 109 mg/dL (74-106); Magnesium 1.1 mg/dL (1.6-2.6); Phosphorus 3.4 mg/dL (2.5-4.9); Potassium 3.8 mmol/L (3.5-5.1); Sodium Level 137 mmol/L (136-145)
--- NOTE | 2023-08-29 10:37 | PCM.PROGNOTE ---
Subjective Subjective Kya was seen on team rounds today. Her svwcry-nw-uhz Eveline was present in the room. All questions were answered to their satisfaction. Afebrile VSS - Maintaining appropriate oxygen saturation on RA Oral intake - FOOD refused lunch and dinner yesterday but ate 75 to 100% of her breakfast this morning. FLUIDS good Discussed with nursing - no problems that need addressed Reviewed the THERAPY notes Medication list reviewed. All lab was personally reviewed. The white blood cell count is up to 4.4 from 3.2 on 08/26/2023. Hemoglobin is 7.5, up from 7.0 on 08/26/2023. Platelets are within normal limits. Sodium is normal at 137 and the potassium is stable at 3.8. BUN is 48 with a creatinine of 1.62 and a BUN/creatinine ratio of 29.6. Phosphorus is normal at 3.4 but the magnesium is once again low at 1.1. She is currently receiving magnesium chloride 128 mg twice daily. Kya tells me that she is sleeping pretty well at night. She has not had to take the Ambien. She is c/o loose stool and had 1 dose of Imodium yesterday. I explained that is due to the large doses of Mag she is requiring to keep the Magnesium up. She is also complaining of lightheadedness with standing. She denies feeling anxious today. She also denies CP, SOB, palpitations, vomiting. She has not been taking the Zofran or the Compazine. She tells me that she gags on the Jamaal and it interferes with her ability to eat........Will change the Jamaal so that it is given between meals. Denies calf pain and the dysuria is better when the urine hits the perineum. No night sweats and no Shaking chills. Objective Data Objective Data Vital Signs: Vital Signs Temp Pulse Resp BP Pulse Ox O2 Del Method 97.9 F 74 17 144/70 H 96 Room Air 08/29/23 10:08/29/23 10:08/29/23 10:08/29/23 10:08/29/23 10:08/29/23 10:00 Oxygen Delivery Method Room Air Weight: 223 lb 8.78 oz Body Mass Index (BMI) 35.1 Intake & Output: Intake and Output for Last 24 Hours 08/27/23 08/28/23 08/29/23 23:59 23:59 23:59 Intake Total 2280 / 2280 2390 / 2630 920 / 920 Output Total 1900 / 1900 2800 / 3150 950 / 950 Balance 380 / 380 -410 / -520 -30 / -30 Lab / Micro Data 08/29/23 09:45 08/29/23 09:45 Labs: Laboratory Results - last 24 hr 08/29/23 09:45: WBC 4.4, RBC 2.55 L, Hgb 7.5 L, Hct 22.6 L, MCV 88.6, MCH 29.4, MCHC 33.2, RDW Std Deviation 47.9 H, RDW Coeff of Zaina 16.0 H, Plt Count 208, MPV 10.3, Sodium 137, Potassium 3.8, Chloride 105, Carbon Dioxide 25.0, Anion Gap 7, BUN 48 H, Creatinine 1.62 H, Estim Creat Clear Calc 37.85, Est GFR (MDRD) Af Amer 40 L, Est GFR (MDRD) Non-Af 33 L, BUN/Creatinine Ratio 29.6 H, Glucose 109 H, Calcium 8.5, Phosphorus 3.4, Magnesium 1.1 L Micro: Microbiology 08/26/23 16:10 Stool Stool Occult Blood (TAI) - Final Physical Exam Const alert and no apparent distress Constitutional Narrative: Flat affect at times, smiling at other times. Sleeping better and anxiety has improved. General Appearance: cooperative HEENT Mouth: dry mucous membranes Resp normal respiratory effort, normal air movement and clear to auscultation bilaterally Effort and Inspection: Negative for tachypneic Cardio regular rate, regular rhythm and no gallops GI normal to inspection, nondistended, normoactive bowel sounds and soft to palpation Extremity no calf tenderness Skin Wound Narrative: The skin over the perineum is healing. She still has denuded areas of the labia and the folds between the thighs and labia. There is some adherent white slough. No odor today and Kya tells me that there is less pain. There is still a lot of moisture over the mons, in the crease between the pannus and the mons and in the folds between the thighs and the labia. Neuro CN's II-XII intact bilaterally Psych Mood & Affect: depressed and flat affect Assessment & Plan Assessment/Plan (1) Physical debility: (2) Generalized weakness: (3) Chemotherapy adverse reaction: QUALIFIERS: Encounter type: subsequent encounter Qualified Code(s): T45.1X5D - Adverse effect of antineoplastic and immunosuppressive drugs, subsequent encounter (4) CINV (chemotherapy-induced nausea and vomiting): (5) Prerenal azotemia: (6) Radiation dermatitis: (7) Acute on chronic anemia: (8) Sri infection: (9) Hypophosphatemia: (10) Hypomagnesemia: (11) Hypokalemia: (12) Anxiety: (13) Depression: QUALIFIERS: Depression Type: persistent depressive disorder Qualified Code(s): F34.1 - Dysthymic disorder PLAN: Plan 1. Continue therapy 2. Start normal saline at 100 cc/h 3. Magnesium 4 g IV now and increase magnesium chloride to 3 times daily 4. Recheck H&H, BMP, mag and Phos on Tuesday 5. Check orthostatics now and repeat in the a.m. x 2 6. Add Marinol 2.5 mg nightly. 7. Add PRN Calmoseptine to better control the moisture. Charges/Coding Visit Charges Inpatient E&M: 49997 [facility] Hosp L2
[2023-08-29 10:42] VITALS: BP 119/50; BP 121/59; BP 137/59; PULSE 60; PULSE 79; PULSE 94
[2023-08-29] MEDS: 0.9% Normal Saline (1000mL) 1,000 ML 100 ML IV (10:58)
[2023-08-29] MEDS: 0.9% Saline Lock 10 ML Syringe IV (11:03)
[2023-08-29] MEDS: Ondansetron ODT 4 MG Tablet 8 MG PO ×2 (11:50→18:50)
[2023-08-29] MEDS: Magnesium Sulfate 4gm/100mL 4 GM/100 ML IV.SOLN. IV (12:16)
--- NOTE | 2023-08-29 13:50 | CASEMGMT ---
Social Work- Teams IDT met with patient at bedside to complete care planning. Discussed patient progress with therapy (PT/OT) and nursing. Patient is currently being monitored for labs and wound care. Patient is improving with therapy; contact guard SBA. Patient informed team that she would like to discuss nutrition and wound care; currently given jordon. Patient reported a small appetite and changes in diet due to chemo and medication. Patient is receiving Buspar for Anxiety. SW to meet with patient at bedside to complete assessment and discharge planning. Patient resides in home alone; patient would like to be as independent as possible. SW will continue to follow to assist with discharge planning. LAWSON Dixon
[2023-08-29] MEDS: Ensure Plus High Protein 120 ML LIQUID PO ×2 (14:04→22:03)
[2023-08-29 22:00] VITALS: BP 119/55; PULSE 64; RESP 18; TEMP 36.3; O2SAT 98
[2023-08-29] MEDS: Calcium (Elemental) 500 MG Tablet PO (22:04)
[2023-08-29] MEDS: Atorvastatin Calcium 20 MG Tablet PO (22:05)
[2023-08-29] MEDS: Dronabinol 2.5 MG Capsule PO (22:05)
[2023-08-29] MEDS: Acetaminophen 500 MG Tablet PO (22:09)
[2023-08-30] MEDS: 0.9% Normal Saline (1000mL) 1,000 ML 100 ML IV ×2 (00:36→10:24)
[2023-08-30] MEDS: Ondansetron ODT 4 MG Tablet 8 MG PO ×3 (04:10→18:20)
[2023-08-30] MEDS: Enoxaparin 40 MG/0.4 ML Syringe SC (06:40)
[2023-08-30] MEDS: Levothyroxine 100 MCG Tablet 200 MCG PO (06:40)
[2023-08-30] MEDS: Magnesium Chloride 64 MG Delay Rel.Tablet 128 MG PO ×3 (06:40→21:52)
[2023-08-30] MEDS: Na Biphos/Potassium Phosphate PACKET 1 PACKET PO (06:40)
[2023-08-30] MEDS: NON-FORMULARY 1 TOPICAL ×3 (06:41→21:52)
[2023-08-30] MEDS: busPIRone 5 MG Tablet PO ×3 (06:41→21:52)
[2023-08-30 07:52] VITALS: BP 134/72; PULSE 88; RESP 16; TEMP 36.1; O2SAT 98
[2023-08-30] MEDS: Losartan Potassium 50 MG Tablet PO (08:12)
[2023-08-30 08:13] VITALS: PULSE 88
[2023-08-30] MEDS: Ascorbic Acid 500 MG Tablet 1000 MG PO (08:13)
[2023-08-30] MEDS: Cholecalciferol (VIT D3) 25 MCG TABLET (1,000 UNITS) 50 MCG PO (08:13)
[2023-08-30] MEDS: Loratadine 10 MG Tablet PO (08:13)
[2023-08-30] MEDS: Juven (unflavored) Packet 1 PACKET PO (08:13)
[2023-08-30] MEDS: Metoprolol(XL)Succ 50 MG Tablet PO (08:13)
[2023-08-30] MEDS: buPROPion (XL) 150 MG TABLET.XL PO (08:13)
[2023-08-30] MEDS: Vitamin B Comp W-C Capsule 1 CAP PO (08:13)
[2023-08-30] MEDS: Multivitamins,Ther W-Minerals Tablet 1 TABLET PO (08:13)
[2023-08-30] MEDS: Zinc Sulfate 50 mg zinc (220 mg) ORAL capsule PO (08:13)
[2023-08-30] MEDS: Ensure Plus High Protein 120 ML LIQUID PO ×3 (08:19→21:51)
[2023-08-30] MEDS: Vitamin E 400 UNITS Capsule PO (08:22)
[2023-08-30] MEDS: Loperamide 2 MG Capsule 4 MG PO ×2 (13:00→22:18)
[2023-08-30 20:57] VITALS: BP 140/65; PULSE 89; RESP 16; TEMP 36.1; O2SAT 98
[2023-08-30] MEDS: Dronabinol 2.5 MG Capsule PO (21:52)
[2023-08-30] MEDS: Atorvastatin Calcium 20 MG Tablet PO (21:52)
[2023-08-30] MEDS: Calcium (Elemental) 500 MG Tablet PO (21:52)
[2023-08-31] MEDS: Ondansetron ODT 4 MG Tablet 8 MG PO ×3 (03:53→21:51)
[2023-08-31] MEDS: Levothyroxine 100 MCG Tablet 200 MCG PO (06:36)
[2023-08-31] MEDS: Enoxaparin 40 MG/0.4 ML Syringe SC (06:36)
[2023-08-31] MEDS: busPIRone 5 MG Tablet PO ×3 (06:36→21:56)
[2023-08-31] MEDS: Magnesium Chloride 64 MG Delay Rel.Tablet 128 MG PO ×3 (06:37→21:55)
[2023-08-31] MEDS: NON-FORMULARY 1 TOPICAL ×3 (06:37→21:56)
[2023-08-31] MEDS: Vitamin E 400 UNITS Capsule PO (07:33)
[2023-08-31] MEDS: Multivitamins,Ther W-Minerals Tablet 1 TABLET PO (07:33)
[2023-08-31] MEDS: Vitamin B Comp W-C Capsule 1 CAP PO (07:33)
[2023-08-31] MEDS: Ascorbic Acid 500 MG Tablet 1000 MG PO (07:33)
[2023-08-31 07:49] VITALS: BP 133/65; PULSE 63; RESP 17; TEMP 36.6; O2SAT 95
[2023-08-31] MEDS: Cholecalciferol (VIT D3) 25 MCG TABLET (1,000 UNITS) 50 MCG PO (09:34)
[2023-08-31 09:35] VITALS: PULSE 63
[2023-08-31] MEDS: Metoprolol(XL)Succ 50 MG Tablet PO (09:35)
[2023-08-31] MEDS: Losartan Potassium 50 MG Tablet PO (09:35)
[2023-08-31] MEDS: Zinc Sulfate 50 mg zinc (220 mg) ORAL capsule PO (09:35)
[2023-08-31] MEDS: buPROPion (XL) 150 MG TABLET.XL PO (09:35)
[2023-08-31] MEDS: Ensure Plus High Protein 120 ML LIQUID PO ×3 (09:35→21:52)
[2023-08-31] MEDS: Loratadine 10 MG Tablet PO (09:35)
[2023-08-31 10:05] LABS: Hematocrit 22.4 % (37-47); Hemoglobin 7.4 g/dL (12.0-15.0)
[2023-08-31 10:22] LABS: Anion Gap 4 (5-15); BUN 40 mg/dL (7-18); Calcium,Total 8.2 mg/dL (8.5-10.1); Chloride 110 mmol/L (98-107); Creatinine, Serum 1.43 mg/dL (0.55-1.02); EST Glomerular Filtration Rate 38 mL/min (>60); Est Glom Filt Rate - Afr Amer 46 mL/min (>60); Estimated Creatinine Clearance 42.88 ml/min; Glucose 107 mg/dL (74-106); Magnesium 1.5 mg/dL (1.6-2.6); Phosphorus 3.1 mg/dL (2.5-4.9); Potassium 3.8 mmol/L (3.5-5.1); Sodium Level 138 mmol/L (136-145)
--- NOTE | 2023-08-31 10:43 | PN_ITS ---
Subjective Subjective Afebrile VSS - Maintaining appropriate oxygen saturation on RA Oral intake - FOOD she ate 75 to 100% for a few meals and then appetite decreases again. Refused 2 meals yesterday but ate 50 to 74% of breakfast today. FLUIDS fluid balance yesterday was positive at 27. IV fluids were discontinued last evening. Discussed with nursing - no problems that need addressed Reviewed the THERAPY notes Medication list reviewed. Still with poor appetite. Refused 2 meals yesterday. Sleeping better at night. Denies palpitations today. She also denies chest pain, shortness of breath, cough, nausea/vomiting/abdominal pain. Denies calf pain. Has some burning when the urine reaches the perineum but it only lasts for a very brief time now. Still fatigues easily and has lightheadedness. All lab drawn this morning was personally reviewed. HGB is 7.4. this is stable but, she is symptomatic with lightheadedness and fatigue with minimal exertion. Sodium is 138 and the potassium is stable at 3.8. BUN is 40 which is down from 48 on 08/29/2023. Creatinine is 1.43, down from 1.6216 1024. Phosphorus is stable at 3.1 and the magnesium is 1.5, up from 1.1 on 08/29/2023. She did not have intravenous magnesium yesterday. She is currently taking MAg chloride 128 mg TID. Objective Data Objective Data Vital Signs: Vital Signs Temp Pulse Resp BP Pulse Ox O2 Del Method 98 F 63 17 133/65 H 95 Room Air 08/31/23 07:49 08/31/23 09:35 08/31/23 07:49 08/31/23 07:49 08/31/23 07:49 08/31/23 07:49 Oxygen Delivery Method Room Air Weight: 223 lb 8.78 oz Body Mass Index (BMI) 35.1 Intake & Output: Intake and Output for Last 24 Hours 08/29/23 08/30/23 08/31/23 23:59 23:59 23:59 Intake Total 2355 / 2355 3550 / 3550 Output Total 1800 / 1800 850 / 850 400 / 400 Balance 555 / 555 2700 / 2700 -400 / -400 Lab / Micro Data 08/31/23 09:30 08/31/23 09:30 Labs: Laboratory Results - last 24 hr 08/31/23 09:30: Hgb 7.4 L, Hct 22.4 L, Sodium 138, Potassium 3.8, Chloride 110 H , Carbon Dioxide 24.0, Anion Gap 4 L, BUN 40 H, Creatinine 1.43 H, Estim Creat Clear Calc 42.88, Est GFR (MDRD) Af Amer 46 L, Est GFR (MDRD) Non-Af 38 L, B UN/Creatinine Ratio 28.0 H, Glucose 107 H, Calcium 8.2 L, Phosphorus 3.1, M agnesium 1.5 L Micro: Microbiology 08/26/23 16:10 Stool Stool Occult Blood (TAI) - Final Physical Exam Const alert, oriented x3 and no apparent distress Constitutional Narrative: Does not appear to be in any pain but, she is pale and looks very tired. She just got done in PT and she was trying to nap when I entered the room. She awakens easily. General Appearance: cooperative HEENT moist oral mucous membranes Resp clear to auscultation bilaterally Effort and Inspection: Negative for tachypneic Cardio regular rate, regular rhythm and no gallops Cardio Narrative: no ectopy. Was lying flat in bed with no SOB. GI normal to inspection, nondistended, normoactive bowel sounds, soft to palpation and non-tender GI Narrative: Had 2 BM's yesterday. Had 2 doses of Imodium. Extremity no calf tenderness General Extremity: Negative for edema Skin Wound Narrative: The sri infection under the pannus and in the folds of the thighs/perineum has resolved and the skin appears healthy in these areas as well as over the mons. The perineum is still moist with denuding of epithelium but the slough is much less. The base is erythematous. It is feeling better with the addition of PRN Calmoseptine between the TID treatments with domeboro's soaks and the compounded cream containing Calmoseptine, Silvadene and Mycostatin. No odor. No purulent DC No erythema outside of the border of where the radiation was given. No satellite lesions. Psych Psych Narrative: Affect is flat. Anxiety is better with the addition of Buspar to her drug regimen. She is hopeful that the cancer is gone and will not recur. Does not seem depressed. Assessment & Plan Assessment/Plan (1) Physical debility: (2) Generalized weakness: (3) Chemotherapy adverse reaction: QUALIFIERS: Encounter type: subsequent encounter Qualified Code(s): T45.1X5D - Adverse effect of antineoplastic and immunosuppressive drugs, subsequent encounter (4) CINV (chemotherapy-induced nausea and vomiting): (5) Prerenal azotemia: (6) Radiation dermatitis: (7) Acute on chronic anemia: (8) Sri infection: (9) Hypophosphatemia: (10) Hypomagnesemia: (11) Hypokalemia: (12) Anxiety: (13) Depression: QUALIFIERS: Depression Type: persistent depressive disorder Q ualified Code(s): F34.1 - Dysthymic disorder PLAN: Plan 1. Continue therapy 2. Continue Domeboro's soaks 3 times daily with application of the compounded cream following the soak TID and Calmoseptine to the Perineum PRN as a moisture barrier. 3. Continue magnesium chloride 128 mg 3 times daily. Will recheck a magnesium level in a few days. Intravenous magnesium can actually increase magnesium wasting in the urine so will try to avoid if possible. IV magnesium only if her magnesium level is very low, less than 1. She has had no atrial fibrillation and no ectopy. Potassium and phosphorus are now normal and stable. 4. Appetite is still a problem. Will increase the Marinol to 2.5 mg twice daily. If this is not effective may need to consider decreasing the Wellbutrin dose until her appetite improves. 5. Continue zinc, vitamin E, Jamaal and vitamin C to promote wound healing. Charges/Coding Visit Charges Inpatient E&M: 03873 [facility] L1
[2023-08-31] MEDS: Menthol/Lanolin/Calamine/Znox 113 GM Tube 1 APPLIC TOPICAL (10:52)
[2023-08-31] MEDS: Juven (unflavored) Packet 1 PACKET PO ×2 (10:52→17:41)
--- NOTE | 2023-08-31 17:47 | CASEMGMT ---
Social Work SW met with patient at bedside to complete initial intake assessment. SW introduced self and role. Patient confirmed demographics and emergency contact information. Patient confirmed code status as full code. Patient informed SW that she was notified that she was notified that she will not require chemotherapy anymore. Patient previously lived in home alone; independent to complete ADLS. Patient informed SW that she has an advanced directive; son, Clem Armijo is primary decision maker. SW educated patient on Medicare coverage; approved 12 days with anticipated discharge on 09/05. Patient informed SW that goal is to return home. SW discussed home health care and outpatient therapy. Patient would like to assess pending progress. SW will continue to follow to support discharge planning. LAWSON Dixon
[2023-08-31 20:00] VITALS: BP 133/66; PULSE 70; RESP 16; TEMP 36.4; O2SAT 94
[2023-08-31] MEDS: Atorvastatin Calcium 20 MG Tablet PO (21:54)
[2023-08-31] MEDS: Loperamide 2 MG Capsule 4 MG PO (21:55)
[2023-08-31] MEDS: Calcium (Elemental) 500 MG Tablet PO (21:55)
[2023-08-31] MEDS: Dronabinol 2.5 MG Capsule PO (22:02)
--- NOTE | 2023-09-01 02:03 | NURSING ---
Reviewed and agree with Bhaskar BUNDY, documentation and assessment charting.
[2023-09-01] MEDS: Ondansetron ODT 4 MG Tablet 8 MG PO (03:13)
[2023-09-01] MEDS: Magnesium Chloride 64 MG Delay Rel.Tablet 128 MG PO ×3 (06:11→22:12)
[2023-09-01] MEDS: busPIRone 5 MG Tablet PO ×3 (06:11→22:12)
[2023-09-01] MEDS: Ensure Plus High Protein 120 ML LIQUID PO ×3 (06:11→22:12)
[2023-09-01] MEDS: Enoxaparin 40 MG/0.4 ML Syringe SC (06:11)
[2023-09-01] MEDS: Levothyroxine 100 MCG Tablet 200 MCG PO (06:18)
[2023-09-01] MEDS: NON-FORMULARY 1 TOPICAL ×3 (07:25→22:14)
[2023-09-01 08:30] VITALS: BP 126/64; PULSE 77; RESP 16; TEMP 36.4; O2SAT 95
[2023-09-01 08:36] VITALS: PULSE 67
[2023-09-01] MEDS: Metoprolol(XL)Succ 50 MG Tablet PO (08:36)
[2023-09-01] MEDS: Vitamin E 400 UNITS Capsule PO (08:36)
[2023-09-01] MEDS: Cholecalciferol (VIT D3) 25 MCG TABLET (1,000 UNITS) 50 MCG PO (08:36)
[2023-09-01] MEDS: Loratadine 10 MG Tablet PO (08:37)
[2023-09-01] MEDS: buPROPion (XL) 150 MG TABLET.XL PO (08:37)
[2023-09-01] MEDS: Vitamin B Comp W-C Capsule 1 CAP PO (08:37)
[2023-09-01] MEDS: Ascorbic Acid 500 MG Tablet 1000 MG PO (08:37)
[2023-09-01] MEDS: Losartan Potassium 50 MG Tablet PO (08:37)
[2023-09-01] MEDS: Zinc Sulfate 50 mg zinc (220 mg) ORAL capsule PO (08:37)
[2023-09-01] MEDS: Multivitamins,Ther W-Minerals Tablet 1 TABLET PO (08:37)
[2023-09-01] MEDS: Juven (unflavored) Packet 1 PACKET PO ×2 (08:40→17:03)
[2023-09-01] MEDS: Dronabinol 2.5 MG Capsule PO ×2 (10:02→22:13)
[2023-09-01] MEDS: 0.9% Saline Lock 10 ML Syringe IV (13:35)
[2023-09-01 19:00] VITALS: BP 114/53; PULSE 65; RESP 16; TEMP 35.8; O2SAT 96
[2023-09-01 22:00] VITALS: PULSE 56; RESP 16; O2SAT 96
[2023-09-01] MEDS: Atorvastatin Calcium 20 MG Tablet PO (22:13)
[2023-09-01] MEDS: Calcium (Elemental) 500 MG Tablet PO (22:14)
[2023-09-02] MEDS: Levothyroxine 100 MCG Tablet 200 MCG PO (06:28)
[2023-09-02] MEDS: Magnesium Chloride 64 MG Delay Rel.Tablet 128 MG PO ×3 (06:28→19:57)
[2023-09-02] MEDS: busPIRone 5 MG Tablet PO ×3 (06:28→19:57)
[2023-09-02] MEDS: Enoxaparin 40 MG/0.4 ML Syringe SC (06:29)
[2023-09-02] MEDS: NON-FORMULARY 1 TOPICAL ×3 (06:30→19:58)
[2023-09-02] MEDS: Ensure Plus High Protein 120 ML LIQUID PO ×3 (06:30→19:56)
[2023-09-02] MEDS: Ascorbic Acid 500 MG Tablet 1000 MG PO (08:26)
[2023-09-02 08:27] VITALS: PULSE 87
[2023-09-02] MEDS: Vitamin E 400 UNITS Capsule PO (08:27)
[2023-09-02] MEDS: Multivitamins,Ther W-Minerals Tablet 1 TABLET PO (08:27)
[2023-09-02] MEDS: Vitamin B Comp W-C Capsule 1 CAP PO (08:27)
[2023-09-02] MEDS: Losartan Potassium 50 MG Tablet PO (08:27)
[2023-09-02] MEDS: Metoprolol(XL)Succ 50 MG Tablet PO (08:27)
[2023-09-02] MEDS: Zinc Sulfate 50 mg zinc (220 mg) ORAL capsule PO (08:27)
[2023-09-02] MEDS: buPROPion (XL) 150 MG TABLET.XL PO (08:27)
[2023-09-02] MEDS: Cholecalciferol (VIT D3) 25 MCG TABLET (1,000 UNITS) 50 MCG PO (08:27)
[2023-09-02] MEDS: Loratadine 10 MG Tablet PO (08:27)
[2023-09-02] MEDS: Juven (unflavored) Packet 1 PACKET PO ×2 (08:30→16:34)
[2023-09-02] MEDS: Dronabinol 2.5 MG Capsule PO (08:33)
[2023-09-02 08:45] VITALS: BP 153/66; PULSE 87; RESP 18; TEMP 36.6; O2SAT 96
--- NOTE | 2023-09-02 14:33 | PCM.PROGNOTE ---
Subjective Subjective Afebrile VSS - Maintaining appropriate oxygen saturation on RA Oral intake - FOOD she is eating 25 to 49% of her meals but is drinking Ensure 3-5 times daily. FLUIDS good Weight today is 214.28 pounds which is down from 223 and !/2 on 08/25/23 pounds Discussed with nursing - no problems that need addressed Reviewed the THERAPY notes Medication list reviewed. Appetite has not increased with Marinol. Wt continues to decrease. I discussed this with Kya and we are going to DC Marinol and try adding Remeron at HS. she tells me she is sleeping well at night and she denies nausea and gagging now. Zofran was made as needed yesterday morning and she has not needed any Zofran or Compazine since then. She is not taking any Compazine since it was ordered at admission. She denies chest pain, shortness of breath, palpitations, abdominal pain and calf tenderness. Objective Data Objective Data Vital Signs: Vital Signs Temp Pulse Resp BP Pulse Ox O2 Del Method FiO2 97.9 F 87 18 153/66 H 96 Room Air 94 09/02/23 08:45 09/02/23 08:45 09/02/23 08:45 09/02/23 08:45 09/02/23 08:45 09/02/23 08:45 08/31/23 20:00 Oxygen Delivery Method Room Air Weight: 223 lb 8.78 oz Body Mass Index (BMI) 35.1 Intake & Output: Intake and Output for Last 24 Hours 08/31/23 09/01/23 09/02/23 23:59 23:59 23:59 Intake Total 1220 / 1220 2080 / 2080 480 / 480 Output Total 2300 / 2300 1700 / 1700 900 / 900 Balance -1080 / -1080 380 / 380 -420 / -420 Lab / Micro Data 08/31/23 09:30 08/31/23 09:30 Micro: Microbiology 08/26/23 16:10 Stool Stool Occult Blood (TAI) - Final Physical Exam Const alert, oriented x3 and no apparent distress HEENT moist oral mucous membranes Resp clear to auscultation bilaterally Effort and Inspection: Negative for tachypneic Cardio regular rate, regular rhythm and no gallops GI normal to inspection, nondistended, normoactive bowel sounds, soft to palpation and non-tender Extremity no calf tenderness General Extremity: Negative for edema Psych Psych Narrative: Smiling more. Interacting with staff and more outgoing than she was at admission. Always cooperative with the therapists. Sleeping well at night. She is calm and appropriate. Assessment & Plan Assessment/Plan (1) Physical debility: (2) Generalized weakness: (3) Chemotherapy adverse reaction: QUALIFIERS: Encounter type: subsequent encounter Qualified Code(s): T45.1X5D - Adverse effect of antineoplastic and immunosuppressive drugs, subsequent encounter (4) CINV (chemotherapy-induced nausea and vomiting): (5) Prerenal azotemia: (6) Radiation dermatitis: (7) Acute on chronic anemia: (8) Sri infection: (9) Hypophosphatemia: (10) Hypomagnesemia: (11) Hypokalemia: (12) Anxiety: (13) Depression: QUALIFIERS: Depression Type: persistent depressive disorder Qualified Code(s): F34.1 - Dysthymic disorder (14) Inanition: PLAN: Plan 1. Continue therapy 2. Discontinue Marinol and start Remeron 15 mg p.o. nightly 3. Change the weights to daily 4. Continue vitamin supplements for wound healing 5. Has not had to take Zofran or Compazine since the Zofran was made as needed on . Denies nausea now but, Marinol may have been helping to control the Nausea. 6. Recheck a BMP, CBC, magnesium and phosphorus on Tuesday. Charges/Coding Visit Charges Inpatient E&M: 63749 [facility] Hosp L1
[2023-09-02 14:44] VITALS: BMI 33.7
--- NOTE | 2023-09-02 15:25 | CHAPLAIN ---
Type of Pastoral Visit ___ Initial Visit _x__ Follow-up Visit ___ On-call Visit ___ General Patient Visit ___ Spiritual Assessment ___ Family Conference ___ Bereavement ___ Rapid Response ___ Code Blue ___ Other (describe below) Pastoral Care Referral From _x__ Patient ___ Family ___ Nurse ___ Physician ___ Transfer Specialist ___ Day Spa Manager ___ Other (describe below) Sacrament/Intervention _x__ Active listening ___ Anointing ___ Sikhism ___ Bereavement ___ Communion _x__ Kinjal exploration ___ _x__ Life review _x__ Prayer ___ Reconciliation ___ Sacrament of Sick _x__ Supportive presence ___ Wedding ___ Other (describe below) Pastoral Comments patient is able to give more information on her past seasons of life and her current hopes of returning home; pt likes to read and asks about favorite Bible translations; pt has hopes of going to her own home after a lengthy absence; pt uses kinjal in God to encourage herself and find strength; pt welcomes presence and prayers
[2023-09-02] MEDS: proCHLORPERazine 5 MG Tablet 10 MG PO (17:49)
[2023-09-02] MEDS: Ondansetron ODT 4 MG Tablet 8 MG PO (17:49)
[2023-09-02 19:30] VITALS: BP 121/45; PULSE 71; RESP 16; TEMP 36.8; O2SAT 96
[2023-09-02] MEDS: Calcium (Elemental) 500 MG Tablet PO (19:56)
[2023-09-02] MEDS: Atorvastatin Calcium 20 MG Tablet PO (19:57)
[2023-09-02] MEDS: Loperamide 2 MG Capsule 4 MG PO (19:57)
[2023-09-02] MEDS: Mirtazapine 15 MG Tablet PO (19:58)
--- NOTE | 2023-09-03 04:14 | NURSING ---
Reviewed and agree with Bhaskar BUNDY, documentation and assessment charting.
[2023-09-03 06:00] VITALS: BMI 33.5
[2023-09-03] MEDS: Magnesium Chloride 64 MG Delay Rel.Tablet 128 MG PO ×3 (07:04→20:33)
[2023-09-03] MEDS: Enoxaparin 40 MG/0.4 ML Syringe SC (07:04)
[2023-09-03] MEDS: NON-FORMULARY 1 TOPICAL ×3 (07:05→20:34)
[2023-09-03] MEDS: Ensure Plus High Protein 120 ML LIQUID PO ×3 (07:05→20:36)
[2023-09-03] MEDS: Levothyroxine 100 MCG Tablet 200 MCG PO (07:05)
[2023-09-03] MEDS: busPIRone 5 MG Tablet PO ×3 (07:06→20:33)
[2023-09-03 08:30] VITALS: BP 140/62; PULSE 89; RESP 15; TEMP 36.4; O2SAT 95
[2023-09-03] MEDS: Cholecalciferol (VIT D3) 25 MCG TABLET (1,000 UNITS) 50 MCG PO (08:31)
[2023-09-03] MEDS: Loratadine 10 MG Tablet PO (08:31)
[2023-09-03] MEDS: Zinc Sulfate 50 mg zinc (220 mg) ORAL capsule PO (08:31)
[2023-09-03] MEDS: Losartan Potassium 50 MG Tablet PO (08:31)
[2023-09-03] MEDS: 0.9% Saline Lock 10 ML Syringe IV ×2 (08:32→14:18)
[2023-09-03] MEDS: Vitamin E 400 UNITS Capsule PO (08:33)
[2023-09-03] MEDS: Multivitamins,Ther W-Minerals Tablet 1 TABLET PO (08:33)
[2023-09-03] MEDS: Vitamin B Comp W-C Capsule 1 CAP PO (08:33)
[2023-09-03] MEDS: Ascorbic Acid 500 MG Tablet 1000 MG PO (08:34)
[2023-09-03 08:35] VITALS: PULSE 89
[2023-09-03] MEDS: Metoprolol(XL)Succ 50 MG Tablet PO (08:35)
[2023-09-03] MEDS: buPROPion (XL) 150 MG TABLET.XL PO (08:36)
[2023-09-03] MEDS: Ondansetron ODT 4 MG Tablet 8 MG PO (08:42)
[2023-09-03] MEDS: Juven (unflavored) Packet 1 PACKET PO ×2 (12:07→16:59)
[2023-09-03] MEDS: Lidocaine/Prilocaine HCl 5 GM Tube TOPICAL (12:08)
[2023-09-03] MEDS: 0.9 % NaCl (Sterile) Posiflush 10 mL IV (14:58)
[2023-09-03 19:44] VITALS: BP 101/44; PULSE 89; RESP 16; TEMP 36.9; O2SAT 97
[2023-09-03] MEDS: Atorvastatin Calcium 20 MG Tablet PO (20:33)
[2023-09-03] MEDS: Mirtazapine 15 MG Tablet PO (20:33)
[2023-09-03] MEDS: Calcium (Elemental) 500 MG Tablet PO (20:33)
[2023-09-03] MEDS: Acetaminophen 500 MG Tablet PO (22:45)
[2023-09-04 06:00] VITALS: BMI 33.5
[2023-09-04] MEDS: Ensure Plus High Protein 120 ML LIQUID PO ×3 (06:05→21:54)
[2023-09-04] MEDS: busPIRone 5 MG Tablet PO ×3 (06:05→21:53)
[2023-09-04] MEDS: Levothyroxine 100 MCG Tablet 200 MCG PO (06:05)
[2023-09-04] MEDS: Enoxaparin 40 MG/0.4 ML Syringe SC (06:05)
[2023-09-04] MEDS: Magnesium Chloride 64 MG Delay Rel.Tablet 128 MG PO ×3 (06:05→21:53)
[2023-09-04] MEDS: NON-FORMULARY 1 TOPICAL ×3 (06:06→21:53)
[2023-09-04] MEDS: Cholecalciferol (VIT D3) 25 MCG TABLET (1,000 UNITS) 50 MCG PO (07:54)
[2023-09-04 07:55] VITALS: PULSE 74
[2023-09-04] MEDS: buPROPion (XL) 150 MG TABLET.XL PO (07:55)
[2023-09-04] MEDS: Vitamin B Comp W-C Capsule 1 CAP PO (07:55)
[2023-09-04] MEDS: Multivitamins,Ther W-Minerals Tablet 1 TABLET PO (07:55)
[2023-09-04] MEDS: Metoprolol(XL)Succ 50 MG Tablet PO (07:55)
[2023-09-04] MEDS: Losartan Potassium 50 MG Tablet PO (07:55)
[2023-09-04] MEDS: Ascorbic Acid 500 MG Tablet 1000 MG PO (07:55)
[2023-09-04] MEDS: Ondansetron ODT 4 MG Tablet 8 MG PO (07:55)
[2023-09-04] MEDS: Zinc Sulfate 50 mg zinc (220 mg) ORAL capsule PO (07:55)
[2023-09-04] MEDS: Vitamin E 400 UNITS Capsule PO (07:57)
[2023-09-04] MEDS: Loratadine 10 MG Tablet PO (07:57)
[2023-09-04 08:06] VITALS: BP 134/67; PULSE 92; RESP 17; TEMP 36.7; O2SAT 96
[2023-09-04] MEDS: Juven (unflavored) Packet 1 PACKET PO ×2 (11:32→16:46)
[2023-09-04] MEDS: 0.9% Saline Lock 10 ML Syringe IV (11:36)
[2023-09-04 20:09] VITALS: BP 114/58; PULSE 88; RESP 16; TEMP 36.6; O2SAT 99
[2023-09-04] MEDS: Calcium (Elemental) 500 MG Tablet PO (21:53)
[2023-09-04] MEDS: Mirtazapine 15 MG Tablet PO (21:53)
[2023-09-04] MEDS: Atorvastatin Calcium 20 MG Tablet PO (21:53)
[2023-09-04] MEDS: Acetaminophen 500 MG Tablet PO (21:53)
[2023-09-05] VITALS (15 sets, daily range): BP systolic 120–145; BP diastolic 52–75; PULSE 16–96; RESP 15–18; TEMP 36.6–36.9; O2SAT 96–99; BMI 33.0
[2023-09-05] MEDS: Magnesium Chloride 64 MG Delay Rel.Tablet 128 MG PO ×3 (05:57→22:52)
[2023-09-05] MEDS: busPIRone 5 MG Tablet PO ×2 (05:57→14:55)
[2023-09-05] MEDS: Levothyroxine 100 MCG Tablet 200 MCG PO (05:57)
[2023-09-05] MEDS: Enoxaparin 40 MG/0.4 ML Syringe SC (05:58)
[2023-09-05] MEDS: NON-FORMULARY 1 TOPICAL ×3 (05:58→22:52)
[2023-09-05] MEDS: Ensure Plus High Protein 120 ML LIQUID PO ×3 (05:58→22:51)
[2023-09-05 06:25] LABS: Hematocrit 21.3 % (37-47); Hemoglobin 6.8 g/dL (12.0-15.0); Mean Corp Hgb Conc 31.9 g/dL (32-36); Mean Corpuscular Volume 93.8 fL (81-99); Mean Platelet Vol. 10.8 fl (6.2-12.0); Platelet Count 176 K/mm3 (150-450); RBC Distribution Width CV 17.9 % (11.6-14.6); RBC Distribution Width SD 55.1 fl (35.1-43.9); Red Blood Count 2.27 M/mm3 (4.2-5.4); White Blood Count 3.8 K/mm3 (4.4-11.0)
[2023-09-05 06:40] LABS: Anion Gap 4 (5-15); BUN 46 mg/dL (7-18); BUN/Creat Ratio 33.8 RATIO (10-20); Chloride 110 mmol/L (98-107); Creatinine, Serum 1.36 mg/dL (0.55-1.02); EST Glomerular Filtration Rate 41 mL/min (>60); Est Glom Filt Rate - Afr Amer 49 mL/min (>60); Glucose 105 mg/dL (74-106); Magnesium 1.5 mg/dL (1.6-2.6); Phosphorus 2.8 mg/dL (2.5-4.9); Sodium Level 140 mmol/L (136-145)
[2023-09-05] MEDS: Losartan Potassium 50 MG Tablet PO (08:02)
[2023-09-05] MEDS: Loratadine 10 MG Tablet PO (08:02)
[2023-09-05] MEDS: Vitamin E 400 UNITS Capsule PO (08:02)
[2023-09-05] MEDS: Metoprolol(XL)Succ 50 MG Tablet PO (08:02)
[2023-09-05] MEDS: buPROPion (XL) 150 MG TABLET.XL PO (08:03)
[2023-09-05] MEDS: Multivitamins,Ther W-Minerals Tablet 1 TABLET PO (08:03)
[2023-09-05] MEDS: Vitamin B Comp W-C Capsule 1 CAP PO (08:03)
[2023-09-05] MEDS: Ascorbic Acid 500 MG Tablet 1000 MG PO (08:03)
[2023-09-05] MEDS: Zinc Sulfate 50 mg zinc (220 mg) ORAL capsule PO (08:03)
[2023-09-05] MEDS: Cholecalciferol (VIT D3) 25 MCG TABLET (1,000 UNITS) 50 MCG PO (08:03)
--- NOTE | 2023-09-05 09:41 | PCA ---
Left message for PCP office Latasha Cloud NP. waiting for return call to make follow up appt.
[2023-09-05] MEDS: 0.9 % NaCl (Sterile) Posiflush 10 mL IV ×2 (14:56→22:54)
--- NOTE | 2023-09-05 16:05 | PCM.PROGNOTE ---
Subjective Subjective Kya was seen on team rounds today. Her wtkayz-he-nnb was present in the room. Afebrile VSS - Maintaining appropriate oxygen saturation on RA Oral intake - FOOD poor-however she is drinking chocolate Ensure 3-5 times a day. FLUIDS fair to adequate Discussed with nursing - no problems that need addressed Reviewed the THERAPY notes Medication list reviewed. She is c.o lightheadedness today. This happens when she is standing doing therapy. She denies cephalgia, cough, shortness of breath, palpitations, chest pain, dysuria, abdominal pain and calf tenderness. The burning with urination is much better since the wounds are healing. She continues to complain of poor appetite and gagging when she tries to eat. She tells me that she is sleeping well at night. All lab from today was personally reviewed. The white blood cell count is mildly decreased at 3.8. Hemoglobin is 6.8 today and has been in the low sevens. Sodium is 140 and the potassium is 4.0. BUN is 46 with a stable creatinine at 1.36. Phosphorus is normal at 2.8 and the magnesium is stable at 1.5. Stool is been Hemoccult negative. Objective Data Objective Data Vital Signs: Vital Signs Temp Pulse Resp BP Pulse Ox O2 Del Method FiO2 97.8 F 94 18 142/53 H 96 Room Air 94 09/05/23 07:39 09/05/23 08:02 09/05/23 07:39 09/05/23 07:39 09/05/23 07:39 09/05/23 07:39 08/31/23 20:00 Oxygen Delivery Method Room Air Weight: 210 lb 6.4 oz Body Mass Index (BMI) 33.0 Intake & Output: Intake and Output for Last 24 Hours 09/03/23 09/04/23 09/05/23 23:59 23:59 23:59 Intake Total 1660 / 1660 1120 / 1120 360 / 360 Output Total 1999 / 1999 1050 / 1050 Balance -340 / -340 70 / 70 360 / 360 Lab / Micro Data 09/05/23 05:30 09/05/23 05:30 Labs: Laboratory Results - last 24 hr 09/05/23 05:30: WBC 3.8 L, RBC 2.27 L, Hgb 6.8 L, Hct 21.3 L, MCV 93.8, MCH 30.0, MCHC 31.9 L, RDW Std Deviation 55.1 H, RDW Coeff of Zaina 17.9 H, Plt Count 176, MPV 10.8, Sodium 140, Potassium 4.0, Chloride 110 H, Carbon Dioxide 26.0, Anion Gap 4 L, BUN 46 H, Creatinine 1.36 H, Estim Creat Clear Calc 43.70, Est GFR (MDRD) Af Amer 49 L, Est GFR (MDRD) Non-Af 41 L, BUN/Creatinine Ratio 33.8 H, Glucose 105, Calcium 9.0, Phosphorus 2.8, Magnesium 1.5 L Micro: Microbiology 08/26/23 16:10 Stool Stool Occult Blood (TAI) - Final Physical Exam Const alert, oriented x3 and no apparent distress Constitutional Narrative: Does not appear to be in any pain but, she is pale and looks very tired. She just got done in PT and she was trying to nap when I entered the room. She awakens easily. General Appearance: cooperative and well kempt HEENT moist oral mucous membranes Mouth: dry mucous membranes Eyes PERRL, EOMs intact bilaterally, conjunctivae normal and no scleral icterus Eyes Narrative: No discharge from the eyes and no mattering of the eyelashes. Neck supple, No nodes and no carotid bruits General: trachea midline Chest Chest Narrative: nedra cath present. Chest: symmetrical chest wall rise Resp clear to auscultation bilaterally Resp Narrative: Not tachypneic Effort and Inspection: Negative for tachypneic Cardio regular rate, regular rhythm and no gallops Cardio Narrative: no ectopy. Was lying flat in bed with no SOB. Jugular Venous Distention: Negative for JVD GI normal to inspection, nondistended, normoactive bowel sounds, soft to palpation and non-tender GI Narrative: Had 2 BM's yesterday. Had 2 doses of Imodium. Narrative: Moist DC present beneath the pannus and in the folds of the groin and over the mons. Some foul smelling moist yellow/white exudate present over the mons and the vulva. Marked erythema due to recent radiation for recurrent vulvar cancer. Desquamation over the mons and the vulva Extremity no calf tenderness Extremity Narrative: pedal pulses are 2+ BL, no clubbing, no red swollen joints. Pale nailbeds. General Extremity: Negative for edema Skin Skin Narrative: See dictation. General Skin Exam: desquamation, erythema and dermatitis; Negative for jaundice Wound Narrative: No yeast apparent on the mons or perineum. No odor. The redness is limited to the labia and it is improving. 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 Keeping the perineum dry is going to be marcos to preventing recurrent beau. Neuro CN's II-XII intact bilaterally and no focal motor deficits Psych mental status grossly normal, thought process normal and cooperative Psych Narrative: Smiling more. Interacting with staff and more outgoing than she was at admission. Always cooperative with the therapists. Sleeping well at night. She is calm and appropriate. Appearance: grossly normal, appropriate and well kempt Attitude: calm Activity / Motor Behavior: appropriate eye contact Speech: normal speech Mood & Affect: depressed and flat affect Assessment & Plan Assessment/Plan (1) Physical debility: (2) Generalized weakness: (3) Chemotherapy adverse reaction: QUALIFIERS: Encounter type: subsequent encounter Qualified Code(s): T45.1X5D - Adverse effect of antineoplastic and immunosuppressive drugs, subsequent encounter (4) CINV (chemotherapy-induced nausea and vomiting): (5) Prerenal azotemia: (6) Radiation dermatitis: (7) Acute on chronic anemia: (8) Beau infection: (9) Hypophosphatemia: (10) Hypomagnesemia: (11) Hypokalemia: (12) Anxiety: (13) Depression: QUALIFIERS: Depression Type: persistent depressive disorder Qualified Code(s): F34.1 - Dysthymic disorder (14) Inanition: PLAN: Plan 1. Transfused 2 units of packed red blood cells for symptomatic anemia with hemoglobin less than 7. 2. Check a serum iron and iron saturation prior to transfusion. 3. Hold the BuSpar-I doubt this is contributing to nausea as the nausea predated the BuSpar but nausea and epigastric discomfort are known side effect of BuSpar. 4. Schedule the ondansetron every 8 hours. 5. Plan discharge home tomorrow. Charges/Coding Visit Charges Inpatient E&M: 44819 [facility] Hosp L1
--- NOTE | 2023-09-05 16:19 | CASEMGMT ---
Social Work Team meeting held on this date with pt and sister in law present. PT/OT/RN updated pt on good progress with significant functional improvement. RUY discussed discharge with pt who is agreeable to dc home tomorrow 09/05. Therapy is recommending outpatient PT. A list of Outpatient Clinics provided to pt who is choosing [facility]. PT will need a straight cane at time of dc and options of DME providers discussed and pt requesting script be sent to [facility]. Pt sister in law agreeable to provide transportation home and physician cleared pt for driving. Pt to drive self to outpt appointments. Pt requesting SW call pt son and provide updates. Phone call to pt son Clme and updated on discharge plan and Clem is agreeable. Clem [facility] Phone call to [facility] and referral made. Script faxed and [facility] to call pt to schedule an appointment. Phone call to [facility] and left requesting return call. Script faxed to [facility] with notice that pt will fruit picker cane tomorrow. Referral made to the [facility] to assess pt for assistance in the home. Pt made aware of the above referrals and is agreeable to dc plan. Discharge Plan: Home alone on 09/06/23 with outpatient PT and cane. Referral to [facility]. Sister in law to transport. AMY Olsen
--- NOTE | 2023-09-05 16:39 | DCINST_ITS ---
Discharge Instructions Diet Discharge Diet: No restrictions Activity Discharge Activity: May Drive and Use Walker (or a cane) Weight Bearing Status: Full weight bearing Keep extremity elevated above heart level: Legs Dressing / Incision Call your doctor if you observe: Fever of 101 or Higher, Shortness of breath, Dizziness, Fainting spells, Swelling in the ankles, Chest pain, Increased palpitations (irregular heartbeat), Calf discomfort and Uncontrolled pain Follow Up Care Please Follow Up With: Latasha Cloud REGULATORY AFFAIRS SPECIALIST, REGULATORY AFFAIRS SPECIALIST-C When: you will also need to follow up with Dr. Issa and Dr. Reveles. Test Results: Test results from this visit will be discussed in further detail at your follow- up appointment, if applicable. Pending Tests Upon Discharge: none Discharge Plan Admission Admit Date/Time: 08/25/23 17:06 Primary Reason for Your Visit: Generalized weakness due to chemotherapy and radiation Attending Provider: Ev Broussard Primary Care Provider: Latasha Cloud NP Instructions Additional Instructions / Restrictions: 1. In order to keep from getting yeast infections under the breasts, beneath the belly and in the folds between the legs you may want to consider ordering a deodorant called Lume. You can order this on line. It comes in a stick and in cream. I suggest the stick. I have tried this with other patients and it has been very effective in preventing yeast infections in all the warm moist areas that yeast loves. It says it lasts for 72 hours but, people tell me they use it twice a week and they are good. 2. Down below is looking very good right now. The majority of the redness now involves only the labia and it is I think mostly due to Lichen Planus. I think if you continue the cream that the pharmacist makes up for us for 1 more prescription you will be good to go. He is mixing up some for you to take home with you tomorrow. 3. I have changed the Wellbutrin to only once a day. It is a long acting formulation and you will take it in the AM. One of the side effects of Wellbutrin is to decrease appetite. If you continue to have trouble with eating you may need to get off the Wellbutrin for a while. 4. I would not start the Buspar until next Tuesday. It can cause some nausea. If the nausea gets better but, gets worse when the Buspar is restarted then just discontinue the drug. 5. You were started on a antidepressant called Remeroepifanio while on rehab. We are using this for a couple reasons. It is known to increase appetite, it helps you sleep at night and it helps with anxiety and depression. You will take this medication at bedtime. 6. Even after the outside looks good there will be continued healing of the t issue below where the lua were. I have started you on some additional vitamins to aid in healing. The vitamins are Vitamin C, Vitamin E and Zinc. Getting enough protein in daily is also very important with healing. Try and do at least 90 grams of protein a day........Ensure plus is a good source of protein if you are not hungry. I would continue the extra Vitamins for the next 2-3 months and then you can cut back to what you were taking prior to the wounds associated with the radiation. 7. It has been a pleasure having you on rehab and you have worked hard and made great progress. If you ever need our services again we would welcome you back. If you have any questions after you leave rehab please do not hesitate to call me! OFFICE: [phone] CELL: [phone] I will pray that you have no more recurrences and you have smooth sailing for the rest of your life. Discharge Orders/Prescriptions Prescriptions: New loperamide 2 mg Capsule 4 mg PO Q6H PRN PRN (Reason: Diarrhea/Loose Stools) Qty: 20 1RF ascorbic acid (vitamin C) 500 mg Tablet 1,000 mg PO LUNCH Qty: 1 0RF bupropion HCl 150 mg Tablet Extended Release 24 Hr 150 mg PO DAILY Qty: 30 0RF Ensure Plus High Protein 0.08 gram-1.5 kcal/mL Liquid 120 ml PO 0600,1400,2200 Qty: 1 0RF Rx Instructions: I recommend you continue the Ensure 3-4 times a day until your appetite improves. Jamaal (with collagen) 7-7-1.5 gram Powder In Packet 1 packet PO BID@1000,1600 Qty: 60 0RF mirtazapine 15 mg Tablet 15 mg PO QHS Qty: 30 0RF zinc sulfate 50 mg zinc (220 mg) Capsule 50 mg PO DAILY Qty: 30 0RF vitamin E (dl, acetate) 180 mg (400 unit) Capsule 180 mg PO DAILYCM Qty: 30 0RF magnesium chloride [Mag 64] 64 mg Tablet,Delayed Release (Dr/Ec) 128 mg PO TID Qty: 90 0RF buspirone 5 mg Tablet 5 mg PO TID Qty: 90 0RF Continued atorvastatin 20 mg tablet 20 mg PO QHS metoprolol succinate 50 mg tablet extended release 24 hr 50 mg PO DAILY cholecalciferol (vitamin D3) 50 mcg (2,000 unit) capsule 50 mcg PO DAILY Complex B-100 Tablet Extended Release 1 tab PO DAILY Multivitamin 50 Plus Tablet 1 tab PO DAILY triamcinolone acetonide [Nasacort] 55 mcg aerosol,spray 1 spray intranasal DAILY PRN (Reason: allergy symptoms) Rx Instructions: administer into each nostril acetaminophen [Tylenol 8 Hour] 650 mg tablet extended release 650 mg PO Q8H PRN PRN (Reason: pain) loratadine [Allergy Relief (loratadine)] 10 mg tablet 10 mg PO DAILY calcium carbonate [Calcium 600] 600 mg calcium (1,500 mg) tablet 600 mg PO DAILY lidocaine-prilocaine 2.5-2.5 % cream 1 applic topical ONCE PRN (Reason: port access) 30 Days Qty: 30 2RF losartan 50 mg tablet 50 mg PO DAILY ondansetron 8 mg tablet,disintegrating 8 mg PO Q8H levothyroxine 200 mcg tablet 200 mcg PO DAILY Discontinued bupropion HCl 100 mg tablet 100 mg PO BID docusate sodium [Colace] 100 mg capsule 100 mg PO BID PRN PRN (Reason: constipation) nystatin 100,000 unit/gram powder 1 applic topical DAILY PRN PRN (Reason: SKIN) prochlorperazine maleate 10 mg tablet 10 mg PO Q6H PRN (Reason: nausea and vomiting) Qty: 30 2RF magnesium oxide 500 mg magnesium tablet 500 mg PO DAILY dexamethasone 4 mg tablet 8 mg PO DAILY Qty: 6 2RF Referrals / Follow Up: Gayle Issa MD [Med Staff - Active Staff] - 09/26/23 1:00 pm () Kendall Reveles DO [Med Staff - Active Staff] - 09/19/23 1:00 pm (Labs before appt) Latasha Cloud NP, REGULATORY AFFAIRS SPECIALIST-C [Primary Care Provider] - (PT TO MAKE APPT HERSELF) Disposition Disposition (needs filled in before D/C Order can be placed): Home, Self Care
--- NOTE | 2023-09-05 17:15 | DS.PCM_ITS ---
Providers Date of Admission: 08/25/23 Date of Discharge: 09/06/23 Primary Care Physician: Latasha Cloud, SENIOR LINUX SYSTEMS ADMINISTRATOR-C Reason For Visit: DEBILITY Diagnosis Discharge Diagnosis (1) Physical debility: Status: Acute Code(s): R53.81 - Other malaise (2) Generalized weakness: Status: Acute Code(s): R53.1 - Weakness (3) CINV (chemotherapy-induced nausea and vomiting): Status: Acute Code(s): R11.2 - Nausea with vomiting, unspecified; T45.1X5A - Adverse effect of antineoplastic and immunosuppressive drugs, initial encounter Plan: Still with nausea and aversion to food. She sees food and gets nauseated. No improvement with Marinol. Will continue Remeron 15 mg at HS and Zofran 8 mg TID at DC. (4) Prerenal azotemia: Status: Acute Code(s): R79.89 - Other specified abnormal findings of blood chemistry (5) Radiation dermatitis: Status: Acute Code(s): L58.9 - Radiodermatitis, unspecified Plan: Continue the compounded cream with Calmoseptine, Silvadene and an antifungal 3 times daily for 1 more prescription. (6) Acute on chronic anemia: Status: Chronic Code(s): D64.9 - Anemia, unspecified Plan: HGB dropped to 6.8 and she had WU and poor exercise tolerance. She also c/o lightheadedness. She was transfused with 2 units of PRBC's and the HGB post transfusion prior to DC was 8.7. Iron studies were checked prior to transfusion and the serum iron was low normal at 54 with a percent iron saturation of 21.8% which is within normal limits. (7) Sri infection: Status: Resolved Code(s): B37.9 - Candidiasis, unspecified (8) Hypophosphatemia: Status: Resolved Code(s): E83.39 - Other disorders of phosphorus metabolism (9) Hypomagnesemia: Status: Acute Code(s): E83.42 - Hypomagnesemia Plan: MAG is stable at 1.5 mg on 128 mg of Magnesium chloride TID. (10) Hypokalemia: Status: Resolved Code(s): E87.6 - Hypokalemia (11) Anxiety: Status: Acute Code(s): F41.9 - Anxiety disorder, unspecified (12) Depression: Status: Acute Code(s): F32.A - Depression, unspecified Qualifiers: Depression Type: persistent depressive disorder Qualified Code(s): F 34.1 - Dysthymic disorder (13) Inanition: Status: Acute Code(s): R64 - Cachexia Plan 1. DC home to self care today 2. She will follow up with Latasha Cloud NP within the next 1 to 2 weeks. She has a follow-up appointment scheduled with Dr. Issa on 09/26/2023 at 1 PM. She also has a follow-up appointment scheduled with Dr. Reveles on 09/19/2023 at 1 PM. She will have labs prior to her appt with Dr. Reveles. Medications at Discharge Home Medications acetaminophen 650 mg tablet,extended release (Tylenol 8 Hour) 650 mg PO Q8H PRN PRN pain 11/05/22 atorvastatin 20 mg tablet 20 mg PO QHS Cholesterol 11/05/22 calcium carbonate (Calcium 600) 600 mg PO DAILY Supplement 11/05/22 cholecalciferol (vitamin D3) 50 mcg (2,000 unit) capsule 50 mcg PO DAILY Supplement 11/05/22 loratadine 10 mg tablet (Allergy Relief (loratadine)) 10 mg PO DAILY Allergies 11/05/22 metoprolol succinate 50 mg tablet,extended release 24 hr 50 mg PO DAILY BP 11/05/22 qzlhzrxnkxlu-dssttnqn-teyxkh tablet (Multivitamin 50 Plus tablet) 1 tab PO DAILY supplement 11/05/22 triamcinolone acetonide 55 mcg nasal spray aerosol (Nasacort) 1 spray intranasal DAILY PRN allergy symptoms 11/05/22 vitamin B complex (Complex B-100 tablet,extended release) 1 tab PO DAILY supplement 11/05/22 lidocaine-prilocaine 2.5 %-2.5 % topical cream 1 applic topical ONCE PRN port access 30 days #30 grams 06/30/23 levothyroxine 200 mcg tablet 200 mcg PO DAILY Thyroid 07/05/23 losartan 50 mg tablet 50 mg PO DAILY BP 07/20/23 ondansetron 8 mg disintegrating tablet 8 mg PO Q8H nausea and vomiting 08/23/23 arginine 7 gram-glutam 7 gram-CaHMB 1.5 wxxi-vtjno-kt-min oral pwd pkt (Jamaal (with collagen)) 1 packet PO BID@1000,1600 #60 ea 09/05/23 ascorbic acid (vitamin C) 500 mg tablet 1,000 mg (2 x 500 mg) PO LUNCH #1 TAB 09/05/23 bupropion HCl 150 mg 24 hr tablet, extended release 150 mg PO DAILY #30 tabs 09/05/23 buspirone 5 mg tablet 5 mg PO TID #90 tabs 09/05/23 food supplemt, lactose-reduced 0.08 gram-1.5 kcal/mL oral liquid (Ensure Plus High Protein) 120 ml PO 0600,1400,2200 #1 mL 09/05/23 loperamide 2 mg capsule 4 mg (2 x 2 mg) PO Q6H PRN PRN Diarrhea/Loose Stools #20 caps 09/05/23 magnesium chloride 64 mg (magnesium chloride) tablet,delayed release (Mag 64) 128 mg (2 x 64 mg) PO TID #90 tabs 09/05/23 mirtazapine 15 mg tablet 15 mg PO QHS #30 tabs 09/05/23 vitamin E (dl, acetate) 180 mg (400 unit) capsule 180 mg PO DAILYCM #30 caps 09/05/23 zinc sulfate 50 mg zinc (220 mg) capsule 50 mg PO DAILY #30 caps 09/05/23 Hospital Course Operations None Procedures Blood transfusion (2 units of PRBC's on 09/05/23 for HGB of 6.8 with fatigue, WU and lightheadedness. ) Summary of Care Provided Minutes Spent on Discharge: 35 Hospital Course: CEE TELLEZ, is a 73 YO F with a PMH of recurrent vulvar squamous cell carcinoma, papillary, noninvasive breast CA in situ(treated with lumpectomy in September 2022 - refused adjuvant hormonal therapy and radiation and opted for surveillance only), depression/anxiety, hypothyroidism, fatty infiltration of the liver, hyperlipidemia, B12 deficiency, vitamin D deficiency, essential hypertension and obesity who recently underwent treatment with Cisplatin and radiation for a local recurrence of Vulvar CA. She lives alone and had been getting progressively weaker. She had poor appetite/intake and had lost weight. She had desquamation of the perineum due to radiation and had a yeast infection with bacterial overgrowth. She complained of patchy burning of the perineum with urination once the urine reached the labia. She denied fevers, night sweats, shaking chills. She had noticed an odor from her perineum. She denied Flank pain. She had nausea and occasional vomiting and had been taking scheduled Zofran Q 8H and PRN Compazine to control this. She denied diarrhea and constipation. She felt very tired and she had had some difficulty sleeping recently. She admitted feeling anxious and at times depressed and tearful. At the time of presentation to rehab she was not able to adequately care for herself at home and Dr. Issa and Dr. Reveles referred her to acute rehab. She had not been able to take PO Potassium and magnesium supplements due to nausea and gagging and had been requiring IV infusions in oncology. She was admitted to the acute in rehab unit on 08/25/23 for strengthening so that she could return home alone at her previous level of function/independence prior to radiation and chemo. She was ordered to be doing [place] Sitz baths at home TID and these were continued at admission to rehab. On PE at admission had a moist foul smelling DC that covered the mons, folds of the groin and the perineum. There was a moist yellow/white exudate present over the mons and the vulva. There was marked erythema of the vulva and desquamation over the mons and the vulva. The retail pharmacist compounded a cream containing Calmoseptine, Silvadene and an antifungal. The cream was applied TID after the [place] soaks. She was started on Zinc, vitamin E and Vitamin C to improve wound healing. She was started on Buspar and this helped with control of anxiety. Wellbutrin was changed to 150 mg of Wellbutrin XL only in the morning and she began to sleep better. Appetite unfortunately remained poor and she got nauseated even looking at food. She was started on Marinol 2.5 mg without any change in the appetite. She was then transitioned to Remeron 15 mg at on 09/02/2023. Appetite remains poor at the time of DC but, she has been drinking 3-5 chocolate Ensures a day which is helping keep her protein and calories up. She got 1 dose of IV mag on rehab and was started on Mag Chloride 128 mg TID. The mag at DC is stable at 1.5 mg. She has had no significant ectopy and no AF while on rehab. She has been able to get the mag chloride down with Ensure. Cee had been maintaining a HGB of 7-7.5 initially however on 09/05/23 the HGB was down to 6.8 and she had fatigue, poor exercise tolerance, WU and lightheadedness. She was transfused with 2 units of PRBC's and the HGB on the day of DC was 8.7. Iron studies were checked prior to transfusion and she was not iron deficient. A hemoccult stool was checked on rehab and it was negative. Cee did well on rehab. At the time of discharge from rehab she was independent with all ADL's. We recommended for the first 1-2 weeks discharge she be supervised for tub/shower transfers. She was able to ascend two 6 inch curb steps with a straight cane at standby assist and she was able to descend 2 6 curb steps with a cane at SBA/CGA. She was able to do 7 sit to stands in 30 seconds using her bilateral upper extremities to rise independently. This indicates improved lower extremity muscle strength. She has ambulated up to 350 feet with a straight cane at mod I on the rehab unit. She can perform transfers from various surfaces independently. Cee was discharged home with self care on 09/06/23. She is able to drive. She will have OP PT in [place]. Follow up appts were scheduled for Cee to see Trent Cloud NP, Dr. Issa and Dr. Reveles. Physical Exam Const alert, oriented x3 and no apparent distress Constitutional Narrative: Glad to be going home. She is not as pale today and has ange cheeks. General Appearance: cooperative Orientation / Consciousness: Negative for confused HEENT head/scalp atraumatic HEENT Narrative: No evidence of thrush. Mouth: dry mucous membranes Eyes PERRL and EOMs intact bilaterally Neck supple Cardio regular rate, regular rhythm and no gallops Cardio Narrative: No ectopy GI normal to inspection, nondistended, normoactive bowel sounds, soft to palpation and non-tender GI Narrative: No guarding with palpation Extremity no calf tenderness General Extremity: Negative for edema Skin Rashes: no rashes Wound Narrative: No odor to the perineal area. No redness of the thigh folds, beneath the pannus or over the mons. The reddened area involving the vulva has been progressively shrinking and I suspect the changes of the vulva now are mostly due to chronic Lichen Planus. Desquamation over the mons has resolved. No exudate present. Neuro CN's II-XII intact bilaterally and no focal motor deficits Psych affect normal Psych Narrative: No tearful. She is smiling today and anxious to get home. She is sleeping well at night and her anxiety is better controlled. She makes good eye contact when staff members are speaking with her. Attitude: No agitated Activity / Motor Behavior: Negative for restless Weight / BMI Weight Weight: 210 lb 6.4 oz Body Mass Index (BMI) 33.0 ABG / Lab / Microbiology Data 09/06/23 09:35 09/05/23 05:30 Laboratory: Laboratory Results - last 24 hr 09/05/23 05:30: WBC 3.8 L, RBC 2.27 L, Hgb 6.8 L, Hct 21.3 L, MCV 93.8, MCH 30.0, MCHC 31.9 L, RDW Std Deviation 55.1 H, RDW Coeff of Zaina 17.9 H, Plt Count 176, MPV 10.8, Sodium 140, Potassium 4.0, Chloride 110 H, Carbon Dioxide 26.0, A nion Gap 4 L, BUN 46 H, Creatinine 1.36 H, Estim Creat Clear Calc 43.70, Est GFR (MDRD) Af Amer 49 L, Est GFR (MDRD) Non-Af 41 L, BUN/Creatinine Ratio 33.8 H, Glucose 105, Calcium 9.0, Phosphorus 2.8, Magnesium 1.5 L Microbiology: Microbiology 08/26/23 16:10 Stool Stool Occult Blood (TAI) - Final D/C Instructions Discharge Diet: No restrictions Weight Bearing Status: Full weight bearing Keep extremity elevated above heart level: Legs Call your doctor if you observe: Fever of 101 or Higher, Shortness of breath, Dizziness, Fainting spells, Swelling in the ankles, Chest pain, Increased palpitations (irregular heartbeat), Calf discomfort and Uncontrolled pain Pending Tests Upon Discharge: none Please Follow Up With: Latasha Cloud SENIOR LINUX SYSTEMS ADMINISTRATOR, SENIOR [employer] SYSTEMS ADMINISTRATOR-C When: you will also need to follow up with Dr. Issa and Dr. Reveles. Meaningful Use Info Meaningful Use Meaningful Use Diagnoses (Choose all that apply): None applicable Ischemic Stroke Statin Dosing Therapy Reference: STATIN DOSE THERAPY REFERENCE: * Patients > 75 years receive moderate or high dose statin therapy. * Patients 75 years or YOUNGER should receive HIGH intensity statin dose unless contraindicated. You will be required to document reason for non-treatment if statin daily dose does not meet guidelines. HIGH DOSE STATIN THERAPY DAILY Atorvastatin > than or = to 40 mg Rosuvastatin > than or = to 20 mg Amlodipine + Atorvastatin > than or = to 2.5/40 mg Ezetimibe + Simvastatin 10/80 mg Simvastatin 80mg Discharge Plan Admission Admit Date/Time: 08/25/23 17:06 Primary Reason for Your Visit: Generalized weakness due to chemotherapy and radiation Attending Provider: Ev Broussard Primary Care Provider: Latasha Cloud NP Instructions Additional Instructions / Restrictions: 1. In order to keep from getting yeast infections under the breasts, beneath the belly and in the folds between the legs you may want to consider ordering a deodorant called Lume. You can order this on line. It comes in a stick and in cream. I suggest the stick. I have tried this with other patients and it has been very effective in preventing yeast infections in all the warm moist areas that yeast loves. It says it lasts for 72 hours but, people tell me they use it twice a week and they are good. 2. Down below is looking very good right now. The majority of the redness now involves only the labia and it is I think mostly due to Lichen Planus. I think if you continue the cream that the pharmacist makes up for us for 1 more prescription you will be good to go. He is mixing up some for you to take home with you tomorrow. 3. I have changed the Wellbutrin to only once a day. It is a long acting formulation and you will take it in the AM. One of the side effects of Wellbutrin is to decrease appetite. If you continue to have trouble with eating you may need to get off the Wellbutrin for a while. 4. I would not start the Buspar until next Tuesday. It can cause some nausea. If the nausea gets better but, gets worse when the Buspar is restarted then just discontinue the drug. 5. You were started on a antidepressant called Remeron while on rehab. We are using this for a couple reasons. It is known to increase appetite, it helps you sleep at night and it helps with anxiety and depression. You will take this medication at bedtime. 6. Even after the outside looks good there will be continued healing of the tissue below where the lua were. I have started you on some additional vitamins to aid in healing. The vitamins are Vitamin C, Vitamin E and Zinc. Getting enough protein in daily is also very important with healing. Try and do at least 90 grams of protein a day........Ensure plus is a good source of protein if you are not hungry. I would continue the extra Vitamins for the next 2-3 months and then you can cut back to what you were taking prior to the wounds associated with the radiation. 7. It has been a pleasure having you on rehab and you have worked hard and made great progress. If you ever need our services again we would welcome you back. If you have any questions after you leave rehab please do not hesitate to call me! OFFICE: [phone] CELL: [phone] I will pray that you have no more recurrences and you have smooth sailing for the rest of your life. Discharge Orders/Prescriptions Prescriptions: New loperamide 2 mg Capsule 4 mg PO Q6H PRN PRN (Reason: Diarrhea/Loose Stools) Qty: 20 1RF ascorbic acid (vitamin C) 500 mg Tablet 1,000 mg PO LUNCH Qty: 1 0RF bupropion HCl 150 mg Tablet Extended Release 24 Hr 150 mg PO DAILY Qty: 30 0RF Ensure Plus High Protein 0.08 gram-1.5 kcal/mL Liquid 120 ml PO 0600,1400,2200 Qty: 1 0RF Rx Instructions: I recommend you continue the Ensure 3-4 times a day until your appetite improves. Jamaal (with collagen) 7-7-1.5 gram Powder In Packet 1 packet PO BID@1000,1600 Qty: 60 0RF mirtazapine 15 mg Tablet 15 mg PO QHS Qty: 30 0RF zinc sulfate 50 mg zinc (220 mg) Capsule 50 mg PO DAILY Qty: 30 0RF vitamin E (dl, acetate) 180 mg (400 unit) Capsule 180 mg PO DAILYCM Qty: 30 0RF magnesium chloride [Mag 64] 64 mg Tablet,Delayed Release (Dr/Ec) 128 mg PO TID Qty: 90 0RF buspirone 5 mg Tablet 5 mg PO TID Qty: 90 0RF Continued atorvastatin 20 mg tablet 20 mg PO QHS metoprolol succinate 50 mg tablet extended release 24 hr 50 mg PO DAILY cholecalciferol (vitamin D3) 50 mcg (2,000 unit) capsule 50 mcg PO DAILY Complex B-100 Tablet Extended Release 1 tab PO DAILY Multivitamin 50 Plus Tablet 1 tab PO DAILY triamcinolone acetonide [Nasacort] 55 mcg aerosol,spray 1 spray intranasal DAILY PRN (Reason: allergy symptoms) Rx Instructions: administer into each nostril acetaminophen [Tylenol 8 Hour] 650 mg tablet extended release 650 mg PO Q8H PRN PRN (Reason: pain) loratadine [Allergy Relief (loratadine)] 10 mg tablet 10 mg PO DAILY calcium carbonate [Calcium 600] 600 mg calcium (1,500 mg) tablet 600 mg PO DAILY lidocaine-prilocaine 2.5-2.5 % cream 1 applic topical ONCE PRN (Reason: port access) 30 Days Qty: 30 2RF losartan 50 mg tablet 50 mg PO DAILY ondansetron 8 mg tablet,disintegrating 8 mg PO Q8H levothyroxine 200 mcg tablet 200 mcg PO DAILY Discontinued bupropion HCl 100 mg tablet 100 mg PO BID docusate sodium [Colace] 100 mg capsule 100 mg PO BID PRN PRN (Reason: constipation) nystatin 100,000 unit/gram powder 1 applic topical DAILY PRN PRN (Reason: SKIN) prochlorperazine maleate 10 mg tablet 10 mg PO Q6H PRN (Reason: nausea and vomiting) Qty: 30 2RF magnesium oxide 500 mg magnesium tablet 500 mg PO DAILY dexamethasone 4 mg tablet 8 mg PO DAILY Qty: 6 2RF Referrals / Follow Up: Gayle Issa MD [Med Staff - Active Staff] - 09/26/23 1:00 pm () Kendall Reveles DO [Med Staff - Active Staff] - 09/19/23 1:00 pm (Labs before appt) Latasha Cloud NP, SENIOR LINUX SYSTEMS ADMINISTRATOR-C [Primary Care Provider] - (PT TO MAKE APPT HERSELF) Disposition Disposition (needs filled in before D/C Order can be placed): Home, Self Care Charges/Coding Visit Charges Inpatient E&M: 77818 Disch Hosp >30min
[2023-09-05 18:13] LABS: Iron 54 ug/dL (50-170); Iron Binding Capacity,Total 248 ug/dL (250-450); PERCENT IRON SATURATION 21.8 % (15.0-55.0)
[2023-09-05] MEDS: 0.9% Normal Saline 250 ML IV.SOLN. IV ×2 (19:55→22:10)
[2023-09-05] MEDS: Mirtazapine 15 MG Tablet PO (22:51)
[2023-09-05] MEDS: Ondansetron 8 MG Tablet PO (22:52)
[2023-09-05] MEDS: Atorvastatin Calcium 20 MG Tablet PO (22:52)
[2023-09-05] MEDS: Calcium (Elemental) 500 MG Tablet PO (22:53)
[2023-09-05] MEDS: Acetaminophen 500 MG Tablet PO (23:55)
[2023-09-06 00:16] VITALS: BP 132/66; PULSE 78; RESP 16; TEMP 36.6; O2SAT 98
[2023-09-06 01:01] VITALS: BP 133/59; PULSE 85; RESP 16; TEMP 36.6; O2SAT 96
[2023-09-06 01:20] VITALS: BP 145/71; PULSE 89; RESP 16; TEMP 36.6; O2SAT 96
--- NOTE | 2023-09-06 01:57 | NURSING ---
2U PRBC'S INFUSED THIS HS. PT TOLERATED WELL AND NO S/SX OF REACTION.
[2023-09-06 06:00] VITALS: BMI 33.4
[2023-09-06] MEDS: Ondansetron 8 MG Tablet PO (06:51)
[2023-09-06] MEDS: Levothyroxine 100 MCG Tablet 200 MCG PO (06:52)
[2023-09-06] MEDS: Magnesium Chloride 64 MG Delay Rel.Tablet 128 MG PO (06:53)
[2023-09-06] MEDS: Ensure Plus High Protein 120 ML LIQUID PO (06:53)
[2023-09-06] MEDS: NON-FORMULARY 1 TOPICAL (06:53)
[2023-09-06] MEDS: Enoxaparin 40 MG/0.4 ML Syringe SC (06:53)
[2023-09-06 07:41] VITALS: BP 146/59; PULSE 94; RESP 16; TEMP 36.9; O2SAT 95
[2023-09-06 08:26] VITALS: PULSE 94
[2023-09-06] MEDS: Ascorbic Acid 500 MG Tablet 1000 MG PO (08:26)
[2023-09-06] MEDS: Zinc Sulfate 50 mg zinc (220 mg) ORAL capsule PO (08:26)
[2023-09-06] MEDS: Cholecalciferol (VIT D3) 25 MCG TABLET (1,000 UNITS) 50 MCG PO (08:26)
[2023-09-06] MEDS: Losartan Potassium 50 MG Tablet PO (08:26)
[2023-09-06] MEDS: buPROPion (XL) 150 MG TABLET.XL PO (08:26)
[2023-09-06] MEDS: Loratadine 10 MG Tablet PO (08:26)
[2023-09-06] MEDS: Vitamin B Comp W-C Capsule 1 CAP PO (08:26)
[2023-09-06] MEDS: Vitamin E 400 UNITS Capsule PO (08:26)
[2023-09-06] MEDS: Metoprolol(XL)Succ 50 MG Tablet PO (08:26)
[2023-09-06] MEDS: Multivitamins,Ther W-Minerals Tablet 1 TABLET PO (08:26)
--- NOTE | 2023-09-06 09:23 | CASEMGMT ---
Social Work SW spoke with Mary at [facility] regarding purchase of cane. Additional requested information faxed. Mary states cane may not be covered by insurance but will know by this afternoon when pt is discharged. Pt updated and will go to [facility] on the way home. Pt agreeable to purchase cane if not covered by insurance. No other SW needs. Plan: DC home alone today 09/05 with outpt PT and a [facility]
[2023-09-06 09:50] LABS: Hematocrit 26.7 % (37-47); Hemoglobin 8.7 g/dL (12.0-15.0); Mean Corp Hgb Conc 32.6 g/dL (32-36); Mean Corpuscular Hgb 29.6 pg (27.0-32.0); Mean Corpuscular Volume 90.8 fL (81-99); Mean Platelet Vol. 10.8 fl (6.2-12.0); Platelet Count 172 K/mm3 (150-450); RBC Distribution Width CV 17.3 % (11.6-14.6); Red Blood Count 2.94 M/mm3 (4.2-5.4); White Blood Count 4.7 K/mm3 (4.4-11.0)
[2023-09-06] MEDS: 0.9 % NaCl (Sterile) Posiflush 10 mL IV (11:44)
== END 2023-09-06 13:01 | disposition home or self-care (01) | DRG 755 ==
PROVIDERS: Admitting Provider Internal Medicine; PCP Nurse Practitioner Family; Visit Provider Internal Medicine
DX: C51.9 Malignant neoplasm of vulva, unspecified (principal); R64 Cachexia; K76.0 Fatty (change of) liver, not elsewhere classified; F34.1 Dysthymic disorder; I10 Essential (primary) hypertension; E89.0 Postprocedural hypothyroidism; D64.9 Anemia, unspecified; E87.6 Hypokalemia; E53.8 Deficiency of other specified B group vitamins; E55.9 Vitamin D deficiency, unspecified; R11.2 Nausea with vomiting, unspecified; E78.00 Pure hypercholesterolemia, unspecified; F41.9 Anxiety disorder, unspecified; L58.9 Radiodermatitis, unspecified; Z68.35 Body mass index [BMI] 35.0-35.9, adult; T45.1X5D Adverse effect of antineoplastic and immunosuppressive drugs, subsequent encounter; Z85.3 Personal history of malignant neoplasm of breast; Z79.899 Other long term (current) drug therapy; E66.9 Obesity, unspecified; Z79.890 Hormone replacement therapy; B37.31 Acute candidiasis of vulva and vagina; R79.89 Other specified abnormal findings of blood chemistry
CPT/HCPCS: 80048; 80053; 82274; 82306; 83540; 83550; 83735; 84100; 84439; 84443; 85014; 85018; 85027; 86850; 86900; 86901; 86920; 86922; 94668; 97110; 97116; 97162; 97166; 97530; 97535; 97802; 97803; J7030; J7050; P9016; A4216

== ENCOUNTER 2023-11-18 09:48 | Outpatient (RCR) | payer MEDICARE, SELFPAY ==
[2023-11-18 10:17] VITALS: BP 117/54; PULSE 93; RESP 18; TEMP 35.7; BMI 28.8
--- NOTE | 2023-11-18 13:49 | PCM.WC.HP ---
History of Present Illness Date of Service: 11/18/23 Chief Complaint: nonhealing ulcer vulva History of Wound: Kya is a pleasant 73 yo woman that presents to the wound healing center for evaluation and treatment of a nonhealing ulcer of her vulva that has been present for nearly 3 months. She has a history of recurrent vulvar cancer for which she has undergone surgical resection in 2011 with multiple surgeries since that time, her most recent was in September 2022 and she underwent chemotherapy and radiation treatment from June through August 25, 2023. The ulcer has been present since the end of her radiation treatments and she had been doing Sitz baths and applying ointment to the area. Dr. Reveles directed her radiation treatment and recommended referral to wound care at her last follow up. Unfortunately, following her treatment with chemotherapy and radiation treatment she fell and broke her clavicle and was in the Rehab unit at [facility] for a week in August and Dr. Broussard prescribed a compounded ointment that she had been applying that was made at the [facility] pharmacy. But she has not been using this recently and has only been keeping the area clean with [place] disposable wipes after each time she urinates. She does wear an incontinence pad just as a precaution as she has occasional urinary incontinence. Most often she makes it to the bathroom. She notes a small amount of drainage on the pads at the site of the ulcer. She has not been on any recent antibiotics and she has not had any biopsies or cultures of the site. She is due for a PET scan but due to the area not being healed, her oncologist and Dr. Reveles agreed that the results may be skewed and would like to postpone this until her ulcer heals. She denies any odor, increased drainage, or increased pain. [facility] Medical History (Updated 11/18/23 @ 14:[address] 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) Vitamin B12 deficiency Vitamin D deficiency Morbid obesity Dyslipidemia Depressive disorder Benign essential hypertension Irregular heartbeat Lichen sclerosus of female genitalia Home Medications ?Medication ?Instructions ?Recorded ?Last Taken ?Type acetaminophen 650 mg 650 mg PO Q8H PRN PRN pain 11/05/22 Unknown History tablet,extended release (Tylenol 8 Hour) atorvastatin 20 mg tablet 20 mg PO QHS Cholesterol 11/05/22 07/05/23 History calcium carbonate (Calcium 600) 600 mg PO DAILY Supplement 11/05/22 07/05/23 History cholecalciferol (vitamin D3) 50 50 mcg PO DAILY Supplement 11/05/22 07/05/23 History mcg (2,000 unit) capsule loratadine 10 mg tablet (Allergy 10 mg PO DAILY Allergies 11/05/22 07/05/23 History Relief (loratadine)) metoprolol succinate 50 mg 50 mg PO DAILY BP 11/05/22 07/06/23 History tablet,extended release 24 hr sccxpxtipgqj-ecgtvksw-briwba 1 tab PO DAILY supplement 11/05/22 07/05/23 History tablet (Multivitamin 50 Plus tablet) triamcinolone acetonide 55 mcg 1 spray intranasal DAILY PRN 11/05/22 07/05/23 History nasal spray aerosol (Nasacort) allergy symptoms vitamin B complex (Complex B-100 1 tab PO DAILY supplement 11/05/22 07/05/23 History tablet,extended release) lidocaine-prilocaine 2.5 %-2.5 % 1 applic topical ONCE PRN port 06/30/23 Unknown Rx topical cream access 30 days #30 grams levothyroxine 200 mcg tablet 200 mcg PO DAILY Thyroid 07/05/23 07/06/23 History ondansetron 8 mg disintegrating 8 mg PO Q8H nausea and vomiting 08/23/23 Unknown History tablet arginine 7 gram-glutam 7 1 packet PO BID@1000,1600 #60 ea 09/05/23 Unknown Rx gram-CaHMB 1.5 apzb-cnhgn-pb-min oral pwd pkt (Jamaal (with collagen)) ascorbic acid (vitamin C) 500 mg 1,000 mg (2 x 500 mg) PO LUNCH #1 09/05/23 Unknown Rx tablet TAB bupropion HCl 150 mg 24 hr tablet, 150 mg PO DAILY #30 tabs 09/05/23 Unknown Rx extended release buspirone 5 mg tablet 5 mg PO TID #90 tabs 09/05/23 Unknown Rx food supplemt, lactose-reduced 120 ml PO 0600,1400,2200 #1 mL 09/05/23 Unknown Rx 0.08 gram-1.5 kcal/mL oral liquid (Ensure Plus High Protein) loperamide 2 mg capsule 4 mg (2 x 2 mg) PO Q6H PRN PRN 09/05/23 Unknown Rx Diarrhea/Loose Stools #20 caps magnesium chloride 64 mg 128 mg (2 x 64 mg) PO TID #90 tabs 09/05/23 Unknown Rx (magnesium chloride) tablet,delayed release (Mag 64) mirtazapine 15 mg tablet 15 mg PO QHS #30 tabs 09/05/23 Unknown Rx vitamin E (dl, acetate) 180 mg 180 mg PO DAILYCM #30 caps 09/05/23 Unknown Rx (400 unit) capsule zinc sulfate 50 mg zinc (220 mg) 50 mg PO DAILY #30 caps 09/05/23 Unknown Rx capsule Allergy/AdvReac Type Severity Reaction Status Date / Time adhesive tape AdvReac Intermediate Rash Verified 11/18/23 10:11 pamprin Allergy Unknown hives Uncoded 10/24/23 13:06 pollen Allergy rhinitis Uncoded 10/24/23 13:06 Family History Father Asthma Heart disease COPD (chronic obstructive pulmonary disease) smoker Mother Arthritis Hypertension Kidney disease Grandmother Cancer paternal - thinks it was breast but can't confirm Brother Alcohol abuse Surgical History History of lumpectomy of right breast History of dilation and curettage History of parathyroidectomy History of thyroidectomy History of vulvectomy History of right breast biopsy Social History household members: none and other details: She is a housing: house number of children: 2 current occupational status: other 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 [employer] Smoking Status: Never smoker alcohol intake: never substance use type: does not use caffeine: Yes (Occasionally ) ROS Constitutional Constitutional: Denies chills, fatigue or fever(s) Eyes Eyes: Denies blurry vision, change in vision or loss of vision ENT HEENT: Denies dysphagia, hearing loss or sore throat Cardiovascular Cardiovascular: Denies chest pain, edema or palpitations Respiratory/Chest Respiratory/Chest: Denies dry cough, dyspnea, dyspnea on exertion, productive cough or wheezing Gastrointestinal Gastrointestinal: Denies diarrhea, nausea or vomiting Genitourinary Genitourinary: Denies dysuria or polyuria Musculoskeletal Musculoskeletal: Denies arthralgias, joint stiffness or muscle weakness Integumentary Integumentary: Reports erythema and wounds Neurologic Neurologic: Denies dizziness, memory loss or weakness Psychiatric Psychiatric: Denies homicidal ideation or suicidal ideation Endocrine Endocrinology: Denies polydipsia, polyphagia or polyuria Hematologic/Lymphatic Hematologic/Lymphatic: Denies easy bleeding or easy bruising Allergic/Immunologic Allergic/Immunologic: Denies throat swelling, tongue swelling or urticaria Vital Signs Vital Signs Vital Signs: 11/18/23 10:17 Temperature 96.2 F L Temperature Source Temporal Pulse Rate 93 Respiratory Rate 18 Blood Pressure 117/54 L Blood Pressure Mean 75 Blood Pressure Source Monitor Blood Pressure Position Sitting Blood Pressure Location Left Arm Oxygen Delivery Method Room Air Weight Weight: 83.461 kg Body Mass Index (BMI) 28.8 Physical Exam Const alert, oriented x3 and no apparent distress General Appearance: cooperative and comfortable HEENT normocephalic and head/scalp atraumatic Resp normal respiratory effort Effort and Inspection: able to speak in complete sentences Cardio regular rate and regular rhythm Skin Wounds: wounds noted Wound Narrative: as in clinical panel Psych mental status grossly normal, thought process normal, cooperative and affect normal Debridement Note Debridement Note Wound debrided: anterior vulva Laterality: Not Applicable Type of Debridement: Excisional debridement Anesthesia Used: 4% Lidocaine Solution, 5% Lidocaine Gel and Cetacaine Depth: Down to and including healthy tissue and in the subcutaneous layer Percentage of wound debrided: 100 Instrument Used: 3mm curette Tissue Removed: Yellow slough, devitalized tissue Severity: Fat Layer Exposed Bleeding Controlled with: Compression and gauze Patient tolerated procedure: Patient tolerated procedure well Post-Debridement Measurements and Additional Note: Post-Debridement Measurements/Treatment - Nurse 1 - General Ulcer Assessment Start: 11/18/23 10:02 Freq: Status: Active Protocol: GRACIE Activity Type Activity Date Activity User E-sign Co-sign Detail Recorded Client Recorded Date Recorded By Document 11/18/23 10:17 [email or web address] [id number] 11/18/23 10:20 KW 11/18/23 10:17 - Today's Visit Information Type of service Initial Visit Arrival Mode Ambulatory,Cane Patient Identification Verified (Name & Yes ) Height and Weight Height 5 ft 7 in Weight 83.461 kg Weight in Pounds 184.0 lbs Body Mass Index (BMI) 28.8 BMI Classification Overweight BSA - Tanvi 1.95 Vital Signs Temperature (97.8 F-99.1 F) 96.2 F L Temperature Source Temporal Pulse Rate (60-100) 93 Pulse Location Monitor Respiratory Rate (12-18) 18 Respiratory rate source Monitor Oxygen Delivery Method Room Air Blood Pressure (90/60-120/80) 117/54 L Blood Pressure Mean 75 Source Monitor Position Sitting Blood Pressure Location Left Arm History Since Last Visit- (Skip if this is Patient's initial visit) Left Footwear Regular Shoe Right Footwear Regular Shoe Pain Scale: 0-10 Numeric Is Patient Pain Free? Yes Communication Assessment Preferred language Moroccan Bar Finish Operator Required No Able to Read Yes Able to Write Yes Communication Tools None Caregiver Communication Skills No Impairment Impairment Right Hearing Abillity Normal Left Hearing Abillity Normal Visual Assistive Devices Glasses Teaching Assessment Preferences Verbal,Written, Demonstration Barriers to Learning None Readiness To Learn Excellent Willingness to Engage in Self Management High Activies Readiness to Engage in Self Management High Activities Anxiety Level Calm Cooperation Cooperative Perception Coherent Interest in Health Problem Asks Questions Education Importance Acknowledges Need Does Patient Smoke tobacco or other Yes substances Smoking Status Never smoker Is Patient Diabetic No Functional Assessment Recent Decline in Ability to Perform Denies Any Declines Culture/Judaism/Loan Review Manager Cultural/Judaism Needs that may affect No Treatment Plan Would you allow our hospital cable former to No meet you for the purpose of spiritual/ emotional support? Loan Review Manager to contact place of tenriism No - Nurse 1 - General Ulcer Measurement Start: 11/18/23 10:02 Freq: Status: Active Protocol: Activity Type Activity Date Activity User E-sign Co-sign Detail Recorded Client Recorded Date Recorded By Document 11/18/23 10:20 [id number] 11/18/23 10:26 11/18/23 10:20 Wound Center Nurse 1 #1 ANTERIOR VULVA -Current Size (cm) - Length 4 -Current Size (cm) - Width 3 -Current Size (cm) - Depth 0.1 -Total Square Cm 12 -Date of Last Picture (Recall this 11/18/23 field) -Exudate Amt Small -Exudate Type Serosanguineous -Wound Margin Distinct, Outline Attached -Granulation Amt Small (1-33%) -Granulation Quality [place] -Necrosis Amt Large (67-100%) -Necrotic Tissue Type Adherent Slough -Texture (Bria-wound Skin Appearance) Assessed -Moisture (Bria-wound Skin Appearance) Assessed -Color (Bria-wound Skin Appearance) Assessed -Temperature (Bria-wound Skin No Abnormality Appearance) (Pt Warm) -Tenderness on Palpation (Bria-wound No Skin Appearance) -Ulcer Cleansing Rinsed/ Irrigated with Saline -Foul Odor after Cleansing No -Anesthetic Used 5% Lidocaine Gel WC - Nurse 2 - General Ulcer CM Notes Start: 11/18/23 10:02 Freq: Status: Active Protocol: Activity Type Activity Date Activity User E-sign Co-sign Detail Recorded Client Recorded Date Recorded By Document 11/18/23 11:29 GM [id number] 11/18/23 11:49 11/18/23 11:29 Wound Center Nurse 2 -Time 11:29 -Correct Patient Yes -Correct Side, Site, Position Yes -Correct Procedure Yes -Procedure Performed Yes -Type of Procedure Debridement -Clinical Debridement Subcutaneous -Tissue Removed Subcutaneous -Post Debridement (cm) - Length 3.0 -Post Debridement (cm) - Width 2.0 -Post Debridement (cm) - Depth 0.1 -Total Square (Post) (cm) 6.00 -Area of Debridement (cm) - Length 3.0 -Area of Debridement (cm) - Width 2.0 -Total Square (Area) (cm) 6.00 -Tunneling No -Undermining/Tunneling No -Circular Undermining No -Wound/Ulcer Outcome Not Healed -Ulcer Cleansing Rinsed/ Irrigated with Saline -Foul Odor after Cleansing No -Bioengineered Tissue No -Bleeding Controlled with Pressure -Treatment Response Procedure Tolerated Well -Debridement - Subq, 1st 20sq cm Yes Pain Scale: 0-10 Numeric Is Patient Pain Free? Yes - Nurse 3 - General Ulcer D/C NN Start: 11/18/23 10:02 Freq: Status: Active Protocol: Activity Type Activity Date Activity User E-sign Co-sign Detail Recorded Client Recorded Date Recorded By Document 11/18/23 12:06 RB [id number] 11/18/23 12:07 RB 11/18/23 12:06 Wound Care Center Nurse 3 #1 ANTERIOR VULVA -Other Dressing hydrogel -Primary Dressing Covered/Secured with Dry Gauze Treatment Response Procedure Tolerated Well Pain Scale: 0-10 Numeric Is Patient Pain Free? 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 At home wound-care instructions: Will have her apply Santyl to the ulcer to help with some adherent fibrous slough. Prescription given today and she was also given a coupon if insurance will not cover it. In the meantime, she will use hydrogel daily and as needed and an ABD to pad and keep the area covered. She may need assistance with dressings and is meeting with a company for possible assistance since she is not able to do some tasks at home due to her clavicle fracture. She also is unable to drive at this time due t the fracture. Keep dressing clean and dry. Off-loading: The patient was instructed to avoid pressure and friction on the affected areas. Reposition every 2 hours at minimum. Avoid prolonged standing and/or dangling of legs. When seated, feet should be elevated at chest level. Frequent ambulation is encouraged. Diet: Patient encouraged to increase protein intake while taking caution to avoid high carbohydrate and/or sugar intake. Labs/cultures/imaging: Wound culture taken today after debridement to assess for infection as an underlying cause of delayed wound healing. Will treat based on results. It may also be reasonable to do a biopsy if there is no progress to r/o recurrence or incomplete treatment of her vulvar cancer. Follow-up: Return in 1 week for wound care follow up. Return sooner or report to the emergency room should symptoms worsen, or new symptoms arise. Note: [employer] speech recognition precast concrete products installer software was used to create portions of this document. Sound-alike and misspelled words, as well as other precast concrete products installer errors may be contained in the documentation.
== END 2023-11-19 23:59 | disposition home or self-care (01) ==
LOC: WC 09:48
PROVIDERS: PCP Nurse Practitioner Family; Referring Provider Obstetrics & Gynecology; Visit Provider Family Medicine
DX: N76.6 Ulceration of vulva (principal); L98.492 Non-pressure chronic ulcer of skin of other sites with fat layer exposed; L58.9 Radiodermatitis, unspecified; N76.5 Ulceration of vagina; I10 Essential (primary) hypertension; E78.00 Pure hypercholesterolemia, unspecified; E89.0 Postprocedural hypothyroidism; Z79.890 Hormone replacement therapy; Z79.899 Other long term (current) drug therapy; Z92.3 Personal history of irradiation; Z92.21 Personal history of antineoplastic chemotherapy; Z85.89 Personal history of malignant neoplasm of other organs and systems
CPT/HCPCS: 11042; 87070; 87075; 87077; 87186; 87205; 99213; G0463

== ENCOUNTER 2023-11-29 14:13 | Outpatient (RCR) | payer MEDICARE, SELFPAY ==
--- NOTE | 2023-11-29 16:18 | NS ---
11/29/23: RD called pt for nutrition follow-up. No answer, left voicemail for pt to call back with questions/concerns. Vesna Broussard RDN, LD
== END 2023-12-19 23:59 ==
LOC: NS 14:13
PROVIDERS: PCP Nurse Practitioner Family; Visit Provider Internal Medicine Hematology & Oncology
DX: Z71.3 Dietary counseling and surveillance (principal)

== ENCOUNTER 2023-12-09 10:45 | Outpatient (RCR) | payer MEDICARE, SELFPAY ==
[2023-11-20 00:57] VITALS: BP 117/54; PULSE 93; RESP 18; TEMP 35.7; BMI 28.8
[2023-11-25 11:19] VITALS: BP 116/67; PULSE 67; RESP 18; TEMP 35.5; BMI 28.8
--- NOTE | 2023-11-25 12:39 | PCM.WC.PN ---
History of Present Illness Date of Service: 11/25/23 Chief Complaint: nonhealing ulcer vulva History of Wound: Kya is a pleasant 73 yo woman that presents to the wound healing center for evaluation and treatment of a nonhealing ulcer of her vulva that has been present for nearly 3 months. She has a history of recurrent vulvar cancer for which she has undergone surgical resection in 2011 with multiple surgeries since that time, her most recent was in September 2022 and she underwent chemotherapy and radiation treatment from June through August 25, 2023. The ulcer has been present since the end of her radiation treatments and she had been doing Sitz baths and applying ointment to the area. Dr. Reveles directed her radiation treatment and recommended referral to wound care at her last follow up. Unfortunately, following her treatment with chemotherapy and radiation treatment she fell and broke her clavicle and was in the Rehab unit at [facility] for a week in August and Dr. Broussard prescribed a compounded ointment that she had been applying that was made at the [facility] pharmacy. But she has not been using this recently and has only been keeping the area clean with Cottonelle disposable wipes after each time she urinates. She does wear an incontinence pad just as a precaution as she has occasional urinary incontinence. Most often she makes it to the bathroom. She notes a small amount of drainage on the pads at the site of the ulcer. She has not been on any recent antibiotics and she has not had any biopsies or cultures of the site. She is due for a PET scan but due to the area not being healed, her oncologist and Dr. Reveles agreed that the results may be skewed and would like to postpone this until her ulcer heals. She denies any odor, increased drainage, or increased pain. Subjective Subjective Kya is here in follow up for a vulvar ulcer and has been tolerating treatment with Santyl and covering with an ABD. She has been having difficulty keeping the ABD pad in place but she also noticed less drainage. She denies odor, erthema or increased drainage. Wound culture was positive for anaerobic bacteria and 2 types of Staph. Objective Data Objective Data Vital Signs: Vital Signs Temp Pulse Resp BP 96 F L 67 18 116/67 11/25/23 11:19 11/25/23 11:19 11/25/23 11:19 11/25/23 11:19 Weight: 83.461 kg Body Mass Index (BMI) 28.8 Physical Exam Const alert, oriented x3 and no apparent distress General Appearance: cooperative and comfortable HEENT normocephalic and head/scalp atraumatic Resp normal respiratory effort Effort and Inspection: able to speak in complete sentences Cardio regular rate and regular rhythm Skin Wounds: wounds noted Wound Narrative: as in clinical panel Psych mental status grossly normal, thought process normal, cooperative and affect normal Debridement Note Debridement Note Wound debrided: anterior vulva Laterality: Not Applicable Type of Debridement: Excisional debridement Anesthesia Used: 4% Lidocaine Solution, 5% Lidocaine Gel and Cetacaine Depth: Down to and including healthy tissue and in the subcutaneous layer Percentage of wound debrided: 100 Instrument Used: 5mm curette Tissue Removed: Yellow slough, devitalized tissue Severity: Fat Layer Exposed Amount of bleeding with debridement: Mild Bleeding Controlled with: Compression and gauze Patient tolerated procedure: Patient tolerated procedure well Post-Debridement Measurements and Additional Note: Post-Debridement Measurements/Treatment - Nurse 1 - General Ulcer Assessment Start: 11/25/23 11:19 Freq: Status: Active Protocol: GRACIE Activity Type Activity Date Activity User E-sign Co-sign Detail Recorded Client Recorded Date Recorded By Document 11/25/23 11:19 KESHAV [id number] 11/25/23 11:27 KESHAV 11/25/23 11:19 - Today's Visit Information Type of service 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-up Visit (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 ) Arrival Mode Ambulatory Transfer Assistance None Patient Identification Verified (Name & Yes ) Patient Requires Transmission-Based No Precautions Height and Weight Body Mass Index (BMI) 28.8 BMI Classification Overweight Vital Signs Temperature (97.8 F-99.1 F) 96 F L Temperature Source Temporal Pulse Rate (60-100) 67 Pulse Location Monitor Respiratory Rate (12-18) 18 Respiratory rate source Observation Blood Pressure (90/60-120/80) 116/67 Blood Pressure Mean (mm Hg) 83 Source Monitor Position Semi-Fowlers Blood Pressure Location Left Arm History Since Last Visit- (Skip if this is Patient's initial visit) Have you changed medications since your No last visit? Any new allergies or adverse reactions No Had a fall/change in ADL's that may No increase risk of falls Signs or symptoms of abuse and/or No neglect since last visit Have you been in the hospital since your No last visit? Has dressing in place as prescribed Yes Has compression in place as prescribed No Has offloadiing in place as prescribed No Experienced any changes in pain level or No management Pain Scale: 0-10 Numeric Is Patient Pain Free? Yes - Nurse 1 - General Ulcer Measurement Start: 11/25/23 11:19 Freq: Status: Active Protocol: Activity Type Activity Date Activity User E-sign Co-sign Detail Recorded Client Recorded Date Recorded By Document 11/25/23 11:19 [id number] 11/25/23 11:27 11/25/23 11:19 Wound Center Nurse 1 #1 ANTERIOR VULVA -Combined with other wound No -Current Size (cm) - Length 2.4 -Current Size (cm) - Width 1.8 -Current Size (cm) - Depth 0.1 -Total Square Cm 4.32 -Tunneling No -Undermining/Tunneling No -Circular Undermining No -Exudate Amt Medium -Exudate Type Serosanguineous -Wound Margin Distinct, Outline Attached -Granulation Amt Medium (34-66%) -Granulation Quality [place] -Slough/Fibrin Yes -Necrosis Amt Medium (34-66%) -Necrotic Tissue Type Adherent Slough -Structure Exposed N/A -Texture (Bria-wound Skin Appearance) Assessed -Moisture (Bria-wound Skin Appearance) Assessed -Color (Bria-wound Skin Appearance) Assessed -Temperature (Bria-wound Skin No Abnormality Appearance) (Pt Warm) -Tenderness on Palpation (Bria-wound No Skin Appearance) -Ulcer Cleansing Wound Cleanser -Foul Odor after Cleansing No -Anesthetic Used 5% Lidocaine Gel - Nurse 2 - General Ulcer CM Notes Start: 11/25/23 11:19 Freq: Status: Active Protocol: Activity Type Activity Date Activity User E-sign Co-sign Detail Recorded Client Recorded Date Recorded By Document 11/25/23 12:10 [id number] 11/25/23 12:21 11/25/23 12:10 Wound Center Nurse 2 -Time 12:11 -Correct Patient Yes -Correct Side, Site, Position Yes -Correct Procedure Yes -Procedure Performed Yes -Type of Procedure Debridement -Clinical Debridement Subcutaneous -Tissue Removed Subcutaneous -Post Debridement (cm) - Length 2.5 -Post Debridement (cm) - Width 2.3 -Post Debridement (cm) - Depth 0.1 -Total Square (Post) (cm) 5.75 -Area of Debridement (cm) - Length 2.5 -Area of Debridement (cm) - Width 2.3 -Total Square (Area) (cm) 5.75 -Tunneling No -Undermining/Tunneling No -Circular Undermining No -Wound/Ulcer Outcome Not Healed -Ulcer Cleansing Rinsed/ Irrigated with Saline -Foul Odor after Cleansing No -Bioengineered Tissue No -Bleeding Controlled with Pressure -Treatment Response Procedure Tolerated Well -Debridement - Subq, 1st 20sq cm Yes Pain Scale: 0-10 Numeric Is Patient Pain Free? Yes - Nurse 3 - General Ulcer D/C NN Start: 11/25/23 11:19 Freq: Status: Active Protocol: Activity Type Activity Date Activity User E-sign Co-sign Detail Recorded Client Recorded Date Recorded By Document 11/25/23 12:31 ELKIN [id number] 11/25/23 12:32 ELKIN 11/25/23 12:31 Wound Care Center Nurse 3 #1 ANTERIOR VULVA -Ulcer Cleansing Rinsed/ Irrigated with Saline -Other Dressing hydrogel -Primary Dressing Covered/Secured with Dry Gauze Treatment Response Procedure Tolerated Well Pain Scale: 0-10 Numeric Is Patient Pain Free? 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 At home wound-care instructions: Will continue to have her apply Santyl to the ulcer to help with some adherent fibrous slough and cover with an ABD pad to keep the area covered. She may need assistance with dressings and is meeting with a company for possible assistance since she is not able to do some tasks at home due to her clavicle fracture. She also is unable to drive at this time due t the fracture. Keep dressing clean and dry. Off-loading: The patient was instructed to avoid pressure and friction on the affected areas. Reposition every 2 hours at minimum. Avoid prolonged standing and/or dangling of legs. When seated, feet should be elevated at chest level. Frequent ambulation is encouraged. Diet: Patient encouraged to increase protein intake while taking caution to avoid high carbohydrate and/or sugar intake. Labs/cultures/imaging: Wound culture was positive for Anaerobic bacteria and 2 types of Staph. Will treat with Augmentin. It may also be reasonable to do a biopsy if there is no progress to r/o recurrence or incomplete treatment of her vulvar cancer. Follow-up: Return in 1 week for wound care follow up. Return sooner or report to the emergency room should symptoms worsen, or new symptoms arise. Note: [employer] speech recognition rotary surface grinder software was used to create portions of this document. Sound-alike and misspelled words, as well as other rotary surface grinder errors may be contained in the documentation.
[2023-12-09 11:03] VITALS: BP 125/60; PULSE 75; RESP 18; TEMP 35.8; BMI 28.8
--- NOTE | 2023-12-09 14:00 | PCM.WC.PN ---
History of Present Illness Date of Service: 12/09/23 Chief Complaint: nonhealing ulcer vulva History of Wound: Kya is a pleasant 73 yo woman that presents to the wound healing center for evaluation and treatment of a nonhealing ulcer of her vulva that has been present for nearly 3 months. She has a history of recurrent vulvar cancer for which she has undergone surgical resection in 2011 with multiple surgeries since that time, her most recent was in September 2022 and she underwent chemotherapy and radiation treatment from June through August 25, 2023. The ulcer has been present since the end of her radiation treatments and she had been doing Sitz baths and applying ointment to the area. Dr. Reveles directed her radiation treatment and recommended referral to wound care at her last follow up. Unfortunately, following her treatment with chemotherapy and radiation treatment she fell and broke her clavicle and was in the Rehab unit at [facility] for a week in August and Dr. Broussard prescribed a compounded ointment that she had been applying that was made at the [facility] pharmacy. But she has not been using this recently and has only been keeping the area clean with Cottonelle disposable wipes after each time she urinates. She does wear an incontinence pad just as a precaution as she has occasional urinary incontinence. Most often she makes it to the bathroom. She notes a small amount of drainage on the pads at the site of the ulcer. She has not been on any recent antibiotics and she has not had any biopsies or cultures of the site. She is due for a PET scan but due to the area not being healed, her oncologist and Dr. Reveles agreed that the results may be skewed and would like to postpone this until her ulcer heals. She denies any odor, increased drainage, or increased pain. Subjective Subjective Kya is here in follow up for a vulvar ulcer and has been tolerating treatment with Santyl and covering with an ABD. She has been having difficulty keeping the ABD pad in place but she also noticed less drainage. She denies odor, erythema or increased drainage. Wound culture on 11/18/23 was positive for anaerobic bacteria and 2 types of Staph and she has completed treatment with antibiotics. Objective Data Objective Data Vital Signs: Vital Signs Temp Pulse Resp BP 96.4 F L 75 18 125/60 H 12/09/23 11:03 12/09/23 11:03 12/09/23 11:03 12/09/23 11:03 Weight: 83.461 kg Body Mass Index (BMI) 28.8 Physical Exam Const alert, oriented x3 and no apparent distress General Appearance: cooperative and comfortable HEENT normocephalic and head/scalp atraumatic Resp normal respiratory effort Effort and Inspection: able to speak in complete sentences Cardio regular rate and regular rhythm Skin Wounds: wounds noted Wound Narrative: as in clinical panel Psych mental status grossly normal, thought process normal, cooperative and affect normal Debridement Note Debridement Note Wound debrided: anterior vulva Laterality: Not Applicable Type of Debridement: Excisional debridement Anesthesia Used: 4% Lidocaine Solution, 5% Lidocaine Gel and Cetacaine Depth: Down to and including healthy tissue and in the subcutaneous layer Percentage of wound debrided: 100 Instrument Used: 5mm curette Tissue Removed: Yellow slough, devitalized tissue Severity: Fat Layer Exposed Amount of bleeding with debridement: Mild Bleeding Controlled with: Compression and gauze Patient tolerated procedure: Patient tolerated procedure well Post-Debridement Measurements and Additional Note: Post-Debridement Measurements/Treatment - Nurse 1 - General Ulcer Assessment Start: 11/25/23 11:19 Freq: Status: Active Protocol: .LOWAILYNT Activity Type Activity Date Activity User E-sign Co-sign Detail Recorded Client Recorded Date Recorded By Document 11/25/23 11:19 RB [id number] 11/25/23 11:27 RB Document 12/09/23 11:03 RB [id number] 12/09/23 11:04 RB 11/25/23 12/09/23 11:19 11:03 - Today's Visit Information Type of service Follow-up Visit 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/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 FARM LABORER ) ) Arrival Mode Ambulatory Ambulatory Transfer Assistance None None Patient Identification Verified (Name & Yes Yes ) Patient Requires Transmission-Based No No Precautions Height and Weight Body Mass Index (BMI) 28.8 28.8 BMI Classification Overweight Overweight Vital Signs Temperature (97.8 F-99.1 F) 96 F L 96.4 F L Temperature Source Temporal Temporal Pulse Rate (60-100) 67 75 Pulse Location Monitor Monitor Respiratory Rate (12-18) 18 18 Respiratory rate source Observation Observation Blood Pressure (90/60-120/80) 116/67 125/60 H Blood Pressure Mean (mm Hg) 83 81 Source Monitor Monitor Position Semi-Fowlers Semi-Fowlers Blood Pressure Location Left Arm Left Arm History Since Last Visit- (Skip if this is Patient's initial visit) Have you changed medications since your No No last visit? Any new allergies or adverse reactions No No Had a fall/change in ADL's that may No No increase risk of falls Signs or symptoms of abuse and/or No No neglect since last visit Have you been in the hospital since your No No last visit? Has dressing in place as prescribed Yes Yes Has compression in place as prescribed No No Has offloadiing in place as prescribed No No Experienced any changes in pain level or No No management Pain Scale: 0-10 Numeric Is Patient Pain Free? Yes Yes WC - Nurse 1 - General Ulcer Measurement Start: 11/25/23 11:19 Freq: Status: Active Protocol: Activity Type Activity Date Activity User E-sign Co-sign Detail Recorded Client Recorded Date Recorded By Document 11/25/23 11:19 RB [id number] 11/25/23 11:27 RB Document 12/09/23 11:03 RB [id number] 12/09/23 11:04 RB 11/25/23 12/09/23 11:19 11:03 Wound Center Nurse 1 #1 ANTERIOR VULVA -Combined with other wound No No -Current Size (cm) - Length 2.4 2 -Current Size (cm) - Width 1.8 1.5 -Current Size (cm) - Depth 0.1 0.1 -Total Square Cm 4.32 3.0 -Tunneling No No -Undermining/Tunneling No No -Circular Undermining No No -Exudate Amt Medium Medium -Exudate Type Serosanguineous Serosanguineous -Wound Margin Distinct, Distinct, Outline Outline Attached Attached -Granulation Amt Medium (34-66%) Medium (34-66%) -Granulation Quality [place] -Slough/Fibrin Yes Yes -Necrosis Amt Medium (34-66%) Medium (34-66%) -Necrotic Tissue Type Adherent Slough Adherent Slough -Structure Exposed N/A N/A -Texture (Bria-wound Skin Appearance) Assessed Assessed, Scarring -Moisture (Bria-wound Skin Appearance) Assessed Assessed -Color (Bria-wound Skin Appearance) Assessed Assessed -Temperature (Bria-wound Skin No Abnormality No Abnormality Appearance) (Pt Warm) (Pt Warm) -Tenderness on Palpation (Bria-wound No No Skin Appearance) -Ulcer Cleansing Wound Cleanser Wound Cleanser -Foul Odor after Cleansing No No -Anesthetic Used 5% Lidocaine 5% Lidocaine Gel Gel WC - Nurse 2 - General Ulcer CM Notes Start: 11/25/23 11:19 Freq: Status: Active Protocol: Activity Type Activity Date Activity User E-sign Co-sign Detail Recorded Client Recorded Date Recorded By Document 11/25/23 12:10 [id number] 11/25/23 12:21 Document 12/09/23 12:02 [id number] 12/09/23 12:11 11/25/23 12/09/23 12:10 12:02 Wound Center Nurse 2 #1 ANTERIOR VULVA -Time 12:11 12:02 -Correct Patient Yes Yes -Correct Side, Site, Position Yes Yes -Correct Procedure Yes Yes -Procedure Performed Yes Yes -Type of Procedure Debridement Debridement -Clinical Debridement Subcutaneous Subcutaneous -Tissue Removed Subcutaneous Subcutaneous -Post Debridement (cm) - Length 2.5 1.5 -Post Debridement (cm) - Width 2.3 1.5 -Post Debridement (cm) - Depth 0.1 0.1 -Total Square (Post) (cm) 5.75 2.25 -Area of Debridement (cm) - Length 2.5 1.5 -Area of Debridement (cm) - Width 2.3 1.5 -Total Square (Area) (cm) 5.75 2.25 -Tunneling No No -Undermining/Tunneling No No -Circular Undermining No No -Wound/Ulcer Outcome Not Healed Not Healed -Ulcer Cleansing Rinsed/ Rinsed/ Irrigated with Irrigated with Saline Saline -Foul Odor after Cleansing No No -Bioengineered Tissue No No -Bleeding Controlled with Pressure Pressure -Treatment Response Procedure Procedure Tolerated Well Tolerated Well -Debridement - Subq, 1st 20sq cm Yes Yes Pain Scale: 0-10 Numeric Is Patient Pain Free? Yes Yes WC - Nurse 3 - General Ulcer D/C NN Start: 11/25/23 11:19 Freq: Status: Active Protocol: Activity Type Activity Date Activity User E-sign Co-sign Detail Recorded Client Recorded Date Recorded By Document 11/25/23 12:31 [id number] 11/25/23 12:32 Document 12/09/23 12:26 [id number] 12/09/23 12:27 11/25/23 12/09/23 12:31 12:26 Wound Care Center Nurse 3 #1 ANTERIOR VULVA -Ulcer Cleansing Rinsed/ Irrigated with Saline -Other Dressing hydrogel hydrogel on damp gauze -Primary Dressing Covered/Secured with Dry Gauze Dry Gauze Treatment Response Procedure Tolerated Well Pain Scale: 0-10 Numeric Is Patient Pain Free? 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 At home wound-care instructions: Will continue to have her apply Santyl to the ulcer to help with some adherent fibrous slough and cover with an ABD pad to keep the area covered. Keep dressing clean and dry. Off-loading: The patient was instructed to avoid pressure and friction on the affected areas. Reposition every 2 hours at minimum. Avoid prolonged standing and/or dangling of legs. When seated, feet should be elevated at chest level. Frequent ambulation is encouraged. Diet: Patient encouraged to increase protein intake while taking caution to avoid high carbohydrate and/or sugar intake. Labs/cultures/imaging: Wound culture was positive for Anaerobic bacteria and 2 types of Staph. She completed Augmentin. It may also be reasonable to do a biopsy if there is no progress to r/o recurrence or incomplete treatment of her vulvar cancer. Follow-up: Return in 2 week for wound care follow up. Return sooner or report to the emergency room should symptoms worsen, or new symptoms arise. Note: [employer] speech recognition meter readers supervisor software was used to create portions of this document. Sound-alike and misspelled words, as well as other meter readers supervisor errors may be contained in the documentation.
== END 2023-12-19 23:59 | disposition home or self-care (01) ==
LOC: WC 10:45
PROVIDERS: PCP Nurse Practitioner Family; Referring Provider Obstetrics & Gynecology; Visit Provider Family Medicine
DX: N76.6 Ulceration of vulva (principal); L98.492 Non-pressure chronic ulcer of skin of other sites with fat layer exposed; N76.5 Ulceration of vagina; L58.9 Radiodermatitis, unspecified; R32 Unspecified urinary incontinence; E03.9 Hypothyroidism, unspecified; Z79.890 Hormone replacement therapy; Z79.899 Other long term (current) drug therapy; Z92.3 Personal history of irradiation; Z92.21 Personal history of antineoplastic chemotherapy; Z85.89 Personal history of malignant neoplasm of other organs and systems
CPT/HCPCS: 11042

== ENCOUNTER 2024-01-06 10:45 | Outpatient (RCR) | payer MEDICARE, SELFPAY ==
[2023-12-20 00:45] VITALS: BP 117/54; PULSE 93; RESP 18; TEMP 35.7; BMI 28.8
[2023-12-23 11:00] VITALS: BP 118/52; PULSE 83; RESP 18; TEMP 35.1; BMI 28.8
--- NOTE | 2023-12-23 13:18 | PN.PCM_ITS ---
History of Present Illness Date of Service: 12/23/23 Chief Complaint: nonhealing ulcer vulva History of Wound: Kya is a pleasant 73 yo woman that presents to the wound healing center for evaluation and treatment of a nonhealing ulcer of her vulva that has been present for nearly 3 months. She has a history of recurrent vulvar cancer for which she has undergone surgical resection in 2011 with multiple surgeries since that time, her most recent was in September 2022 and she underwent chemotherapy and radiation treatment from June through August 25, 2023. The ulcer has been present since the end of her radiation treatments and she had been doing Sitz baths and applying ointment to the area. Dr. Reveles directed her radiation treatment and recommended referral to wound care at her last follow up. Unfortunately, following her treatment with chemotherapy and radiation treatment she fell and broke her clavicle and was in the Rehab unit at [facility] for a week in August and Dr. Broussard prescribed a compounded ointment that she had been applying that was made at the [facility] pharmacy. But she has not been using this recently and has only been keeping the area clean with Cottonelle disposable wipes after each time she urinates. She does wear an incontinence pad just as a precaution as she has occasional urinary incontinence. Most often she makes it to the bathroom. She notes a small amount of drainage on the pads at the site of the ulcer. She has not been on any recent antibiotics and she has not had any b iopsies or cultures of the site. She is due for a PET scan but due to the area not being healed, her oncologist and Dr. Reveles agreed that the results may be skewed and would like to postpone this until her ulcer heals. She denies any odor, increased drainage, or increased pain. Subjective Subjective Kya is here in follow up for a vulvar ulcer and has been tolerating treatment with Santyl and covering with an ABD. She has been having difficulty keeping the ABD pad in place but she also noticed less drainage. She denies odor, erythema or increased drainage. Wound culture on 11/18/23 was positive for anaerobic bacteria and 2 types of Staph and she has completed treatment with antibiotics. Objective Data Objective Data Vital Signs: Vital Signs Temp Pulse Resp BP 95.1 F L 83 18 118/52 L 12/23/23 11:00 12/23/23 11:00 12/23/23 11:00 12/23/23 11:00 Weight: 83.461 kg Body Mass Index (BMI) 28.8 Physical Exam Const alert, oriented x3 and no apparent distress General Appearance: cooperative and comfortable HEENT normocephalic and head/scalp atraumatic Resp normal respiratory effort Effort and Inspection: able to speak in complete sentences Cardio regular rate and regular rhythm Skin Wounds: wounds noted Wound Narrative: as in clinical panel Psych mental status grossly normal, thought process normal, cooperative and affect normal Debridement Note Debridement Note Wound debrided: anterior vulva Laterality: Not Applicable Type of Debridement: Excisional debridement Anesthesia Used: 4% Lidocaine Solution, 5% Lidocaine Gel and Cetacaine Depth: Down to and including healthy tissue and in the subcutaneous layer Percentage of wound debrided: 100 Instrument Used: 5mm curette Tissue Removed: Yellow slough, devitalized tissue Severity: Fat Layer Exposed Amount of bleeding with debridement: Mild Bleeding Controlled with: Compression and gauze Patient tolerated procedure: Patient tolerated procedure well Post-Debridement Measurements and Additional Note: Post-Debridement Measurements/Treatment - Nurse 1 - General Ulcer Assessment Start: 12/23/23 11:00 Freq: Status: Active Protocol: [email or web address] Activity Type Activity Date Activity User E-sign Co-sign Detail Recorded Client Recorded Date Recorded By Document 12/23/23 11:00 [id number] 12/23/23 11:02 12/23/23 11:00 - Today's Visit Information Type of service Follow-up Visit (Physician/VERIFICATION LEAD ) Arrival Mode Ambulatory Transfer Assistance None Patient Identification Verified (Name & Yes ) Patient Requires Transmission-Based No Precautions Height and Weight Body Mass Index (BMI) 28.8 BMI Classification Overweight Vital Signs Temperature (97.8 F-99.1 F) 95.1 F L Temperature Source Temporal Pulse Rate (60-100) 83 Pulse Location Monitor Respiratory Rate (12-18) 18 Respiratory rate source Observation Blood Pressure (90/60-120/80) 118/52 L Blood Pressure Mean (mm Hg) 74 Source Monitor Position Semi-Fowlers Blood Pressure Location Left Arm History Since Last Visit- (Skip if this is Patient's initial visit) Have you changed medications since your No last visit? Any new allergies or adverse reactions No Had a fall/change in ADL's that may No increase risk of falls Signs or symptoms of abuse and/or No neglect since last visit Have you been in the hospital since your No last visit? Has dressing in place as prescribed Yes Has compression in place as prescribed No Has offloadiing in place as prescribed No Experienced any changes in pain level or No management Pain Scale: 0-10 Numeric Is Patient Pain Free? Yes - Nurse 1 - General Ulcer Measurement Start: 12/23/23 11:00 Freq: Status: Active Protocol: Activity Type Activity Date Activity User E-sign Co-sign Detail Recorded Client Recorded Date Recorded By Document 12/23/23 11:00 RB [id number] 12/23/23 11:02 RB 12/23/23 11:00 Wound Center Nurse 1 #1 ANTERIOR VULVA -Combined with other wound No -Current Size (cm) - Length 1.5 -Current Size (cm) - Width 2 -Current Size (cm) - Depth 0.1 -Total Square Cm 3.0 -Photo Taken Yes -Tunneling No -Undermining/Tunneling No -Circular Undermining No -Exudate Amt Medium -Exudate Type Serosanguineous -Wound Margin Distinct, Outline Attached -Granulation Amt Medium (34-66%) -Granulation Quality [place] -Slough/Fibrin Yes -Necrosis Amt Medium (34-66%) -Necrotic Tissue Type Adherent Slough -Structure Exposed N/A -Texture (Bria-wound Skin Appearance) Assessed -Moisture (Bria-wound Skin Appearance) Maceration -Color (Bria-wound Skin Appearance) Assessed -Temperature (Bria-wound Skin No Abnormality Appearance) (Pt Warm) -Tenderness on Palpation (Bria-wound No Skin Appearance) -Ulcer Cleansing Wound Cleanser -Foul Odor after Cleansing No -Anesthetic Used 5% Lidocaine Gel - Nurse 2 - General Ulcer CM Notes Start: 12/23/23 11:00 Freq: Status: Active Protocol: Activity Type Activity Date Activity User E-sign Co-sign Detail Recorded Client Recorded Date Recorded By Document 12/23/23 11:17 [id number] 12/23/23 11:27 12/23/23 11:17 Wound Center Nurse 2 -Time 11:18 -Correct Patient Yes -Correct Side, Site, Position Yes -Correct Procedure Yes -Procedure Performed Yes -Type of Procedure Debridement -Clinical Debridement Subcutaneous -Tissue Removed Subcutaneous -Post Debridement (cm) - Length 1.3 -Post Debridement (cm) - Width 0.6 -Post Debridement (cm) - Depth 0.1 -Total Square (Post) (cm) 0.78 -Area of Debridement (cm) - Length 1.3 -Area of Debridement (cm) - Width 0.6 -Total Square (Area) (cm) 0.78 -Tunneling No -Undermining/Tunneling No -Circular Undermining No -Wound/Ulcer Outcome Not Healed -Ulcer Cleansing Rinsed/ Irrigated with Saline -Foul Odor after Cleansing No -Bioengineered Tissue No -Bleeding Controlled with Pressure -Treatment Response Procedure Tolerated Well -Debridement - Subq, 1st 20sq cm Yes Pain Scale: 0-10 Numeric Is Patient Pain Free? Yes WC - Nurse 3 - General Ulcer D/C NN Start: 12/23/23 11:00 Freq: Status: Active Protocol: Activity Type Activity Date Activity User E-sign Co-sign Detail Recorded Client Recorded Date Recorded By Document 12/23/23 11:32 KW [id number] 12/23/23 11:33 KW 12/23/23 11:32 Wound Care Center Nurse 3 #1 ANTERIOR VULVA -Other Dressing santyl moistened gauze , hydrogel for today -Primary Dressing Covered/Secured with Dry Gauze Pain Scale: 0-10 Numeric Is Patient Pain Free? 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 At home wound-care instructions: Will continue to have her apply Santyl to the ulcer to help with some adherent fibrous slough and cover with an ABD pad to keep the area covered. Keep dressing clean and dry. Off-loading: The patient was instructed to avoid pressure and friction on the affected areas. Reposition every 2 hours at minimum. Avoid prolonged standing and/or dangling of legs. When seated, feet should be elevated at chest level. Frequent ambulation is encouraged. Diet: Patient encouraged to increase protein intake while taking caution to avoid high carbohydrate and/or sugar intake. Labs/cultures/imaging: Wound culture was positive for Anaerobic bacteria and 2 types of Staph. She completed Augmentin. It may also be reasonable to do a biopsy if there is no progress to r/o recurrence or incomplete treatment of her vulvar cancer. Follow-up: Return in 2 week for wound care follow up. Return sooner or report to the emergency room should symptoms worsen, or new symptoms arise. Note: Augment speech recognition solar system installer software was used to create portions of this document. Sound-alike and misspelled words, as well as other solar system installer errors may be contained in the documentation.
--- NOTE | 2023-12-27 11:51 | WC ---
PHOTO 12/23/23 RIGHT VULVA
[2024-01-06 10:52] VITALS: BP 133/61; PULSE 83; RESP 18; TEMP 36.2; BMI 28.8
--- NOTE | 2024-01-06 12:36 | PN.PCM_ITS ---
History of Present Illness Date of Service: 01/06/24 Chief Complaint: nonhealing ulcer vulva History of Wound: Kya is a pleasant 73 yo woman that presents to the wound healing center for evaluation and treatment of a nonhealing ulcer of her vulva that has been present for nearly 3 months. She has a history of recurrent vulvar cancer for which she has undergone surgical resection in 2011 with multiple surgeries since that time, her most recent was in September 2022 and she underwent chemotherapy and radiation treatment from June through August 25, 2023. The ulcer has been present since the end of her radiation treatments and she had been doing Sitz baths and applying ointment to the area. Dr. Reveles directed her radiation treatment and recommended referral to wound care at her last follow up. Unfortunately, following her treatment with chemotherapy and radiation treatment she fell and broke her clavicle and was in the Rehab unit at [facility] for a week in August and Dr. Broussard prescribed a compounded ointment that she had been applying that was made at the [facility] pharmacy. But she has not been using this recently and has only been keeping the area clean with Cottonelle disposable wipes after each time she urinates. She does wear an incontinence pad just as a precaution as she has occasional urinary incontinence. Most often she makes it to the bathroom. She notes a small amount of drainage on the pads at the site of the ulcer. She has not been on any recent antibiotics and she has not had any b iopsies or cultures of the site. She is due for a PET scan but due to the area not being healed, her oncologist and Dr. Reveles agreed that the results may be skewed and would like to postpone this until her ulcer heals. She denies any odor, increased drainage, or increased pain. Subjective Subjective Kya is here in follow up for a vulvar ulcer and has been tolerating treatment with Santyl and covering with an ABD. She has been having difficulty keeping the ABD pad in place but she also noticed less drainage. She denies odor, erythema or increased drainage. Wound culture on 11/18/23 was positive for anaerobic bacteria and 2 types of Staph and she has completed treatment with antibiotics. Objective Data Objective Data Vital Signs: Vital Signs Temp Pulse Resp BP O2 Del Method 97.1 F L 83 18 133/61 H Room Air 01/06/24 10:52 01/06/24 10:52 01/06/24 10:52 01/06/24 10:52 01/06/24 10:52 Oxygen Delivery Method Room Air Weight: 83.461 kg Body Mass Index (BMI) 28.8 Physical Exam Const alert, oriented x3 and no apparent distress General Appearance: cooperative and comfortable HEENT normocephalic and head/scalp atraumatic Resp normal respiratory effort Effort and Inspection: able to speak in complete sentences Cardio regular rate and regular rhythm Skin Wounds: wounds noted Wound Narrative: as in clinical panel Psych mental status grossly normal, thought process normal, cooperative and affect normal Debridement Note Debridement Note Wound debrided: anterior vulva Laterality: Not Applicable Type of Debridement: Excisional debridement Anesthesia Used: 4% Lidocaine Solution, 5% Lidocaine Gel and Cetacaine Depth: Down to and including healthy tissue and in the subcutaneous layer Percentage of wound debrided: 100 Instrument Used: 3mm curette Tissue Removed: Yellow slough, devitalized tissue Severity: Fat Layer Exposed Amount of bleeding with debridement: Mild Bleeding Controlled with: Compression and gauze Patient tolerated procedure: Patient tolerated procedure well Post-Debridement Measurements and Additional Note: Post-Debridement Measurements/Treatment - Nurse 1 - General Ulcer Assessment Start: 12/23/23 11:00 Freq: Status: Active Protocol: GRACIE Activity Type Activity Date Activity User E-sign Co-sign Detail Recorded Client Recorded Date Recorded By Document 12/23/23 11:00 RB [id number] 12/23/23 11:02 RB Document 01/06/24 10:52 DS [id number] 01/06/24 11:02 DS 12/23/23 01/06/24 11:00 10:52 - Today's Visit Information Type of service Follow-up Visit Follow-up Visit (Physician/FISH PROTECTOR (Physician/FISH PROTECTOR ) ) Arrival Mode Ambulatory Ambulatory,Cane Transfer Assistance None Patient Identification Verified (Name & Yes Yes ) Patient Requires Transmission-Based No No Precautions Safety Precautions Fall Prevention Height and Weight Body Mass Index (BMI) 28.8 28.8 BMI Classification Overweight Overweight Vital Signs Temperature (97.8 F-99.1 F) 95.1 F L 97.1 F L Temperature Source Temporal Temporal Pulse Rate (60-100) 83 83 Pulse Location Monitor Monitor Respiratory Rate (12-18) 18 18 Respiratory rate source Observation Observation Oxygen Delivery Method Room Air Blood Pressure (90/60-120/80) 118/52 L 133/61 H Blood Pressure Mean (mm Hg) 74 85 Source Monitor Manual Position Semi-Fowlers Sitting Blood Pressure Location Left Arm Left Arm History Since Last Visit- (Skip if this is Patient's initial visit) Have you changed medications since your No No last visit? Any new allergies or adverse reactions No No Had a fall/change in ADL's that may No No increase risk of falls Signs or symptoms of abuse and/or No No neglect since last visit Have you been in the hospital since your No No last visit? Has dressing in place as prescribed Yes Yes Has compression in place as prescribed No N/A Has offloadiing in place as prescribed No N/A Experienced any changes in pain level or No No management Left Footwear Regular Shoe Right Footwear Regular Shoe Pain Scale: 0-10 Numeric Is Patient Pain Free? Yes Yes WC - Nurse 1 - General Ulcer Measurement Start: 12/23/23 11:00 Freq: Status: Active Protocol: Activity Type Activity Date Activity User E-sign Co-sign Detail Recorded Client Recorded Date Recorded By Document 12/23/23 11:00 RB [id number] 12/23/23 11:02 RB Document 01/06/24 10:52 DS [id number] 01/06/24 11:02 DS 12/23/23 01/06/24 11:00 10:52 Wound Center Nurse 1 #1 ANTERIOR VULVA -Combined with other wound No -Current Size (cm) - Length 1.5 3.0 -Current Size (cm) - Width 2 2.0 -Current Size (cm) - Depth 0.1 0.1 -Total Square Cm 3.0 6.00 -Photo Taken Yes -Tunneling No No -Undermining/Tunneling No No -Circular Undermining No No -Exudate Amt Medium None Present -Exudate Type Serosanguineous -Wound Margin Distinct, Distinct, Outline Outline Attached Attached -Granulation Amt Medium (34-66%) Small (1-33%) -Granulation Quality [place] -Slough/Fibrin Yes -Necrosis Amt Medium (34-66%) Medium (34-66%) -Necrotic Tissue Type Adherent Slough Adherent Slough -Structure Exposed N/A -Texture (Bria-wound Skin Appearance) Assessed Assessed -Moisture (Bria-wound Skin Appearance) Maceration Assessed -Color (Bria-wound Skin Appearance) Assessed Assessed -Temperature (Bria-wound Skin No Abnormality No Abnormality Appearance) (Pt Warm) (Pt Warm) -Tenderness on Palpation (Bria-wound No No Skin Appearance) -Ulcer Cleansing Wound Cleanser Soap and Water -Foul Odor after Cleansing No No -Anesthetic Used 5% Lidocaine 5% Lidocaine Gel Gel WC - Nurse 2 - General Ulcer CM Notes Start: 12/23/23 11:00 Freq: Status: Active Protocol: Activity Type Activity Date Activity User E-sign Co-sign Detail Recorded Client Recorded Date Recorded By Document 12/23/23 11:17 [id number] 12/23/23 11:27 Document 01/06/24 11:15 [id number] 01/06/24 11:24 12/23/23 01/06/24 11:17 11:15 Wound Center Nurse 2 #1 ANTERIOR VULVA -Time 11:18 11:15 -Correct Patient Yes Yes -Correct Side, Site, Position Yes Yes -Correct Procedure Yes Yes -Procedure Performed Yes Yes -Type of Procedure Debridement Debridement -Clinical Debridement Subcutaneous Subcutaneous -Tissue Removed Subcutaneous Subcutaneous -Post Debridement (cm) - Length 1.3 1.0 -Post Debridement (cm) - Width 0.6 0.3 -Post Debridement (cm) - Depth 0.1 0.1 -Total Square (Post) (cm) 0.78 0.30 -Area of Debridement (cm) - Length 1.3 1.0 -Area of Debridement (cm) - Width 0.6 0.3 -Total Square (Area) (cm) 0.78 0.30 -Tunneling No No -Undermining/Tunneling No No -Circular Undermining No No -Wound/Ulcer Outcome Not Healed Not Healed -Ulcer Cleansing Rinsed/ Rinsed/ Irrigated with Irrigated with Saline Saline -Foul Odor after Cleansing No No -Bioengineered Tissue No No -Bleeding Controlled with Pressure Pressure -Treatment Response Procedure Procedure Tolerated Well Tolerated Well -Debridement - Subq, 1st 20sq cm Yes Yes Pain Scale: 0-10 Numeric Is Patient Pain Free? Yes Yes JODIE - Nurse 3 - General Ulcer D/C NN Start: 12/23/23 11:00 Freq: Status: Active Protocol: Activity Type Activity Date Activity User E-sign Co-sign Detail Recorded Client Recorded Date Recorded By Document 10/04/24 11:32 KW [id number] 12/23/23 11:33 KW Document 01/06/24 11:29 KW [id number] 01/06/24 11:29 KW 12/23/23 01/06/24 11:32 11:29 Wound Care Center Nurse 3 #1 ANTERIOR VULVA -Other Dressing santyl hydrogel moistened gauze , hydrogel for today -Primary Dressing Covered/Secured with Dry Gauze Dry Gauze Pain Scale: 0-10 Numeric Is Patient Pain Free? 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 At home wound-care instructions: Will continue to have her apply Santyl to the ulcer to help with some adherent fibrous slough and cover with an ABD pad to keep the area covered. Keep dressing clean and dry. Off-loading: The patient was instructed to avoid pressure and friction on the affected areas. Reposition every 2 hours at minimum. Avoid prolonged standing and/or dangling of legs. When seated, feet should be elevated at chest level. Frequent ambulation is encouraged. Diet: Patient encouraged to increase protein intake while taking caution to avoid high carbohydrate and/or sugar intake. Labs/cultures/imaging: Wound culture was positive for Anaerobic bacteria and 2 types of Staph. She completed Augmentin. It may also be reasonable to do a biopsy if there is no progress to r/o recurrence or incomplete treatment of her vulvar cancer. Follow-up: Return in 2 week for wound care follow up. Return sooner or report to the emergency room should symptoms worsen, or new symptoms arise. Note: Dragon speech recognition risk control specialist software was used to create portions of this document. Sound-alike and misspelled words, as well as other risk control specialist errors may be contained in the documentation.
== END 2024-01-19 23:59 | disposition home or self-care (01) ==
LOC: WC 10:45
PROVIDERS: PCP Nurse Practitioner Family; Referring Provider Obstetrics & Gynecology; Visit Provider Family Medicine
DX: L58.9 Radiodermatitis, unspecified (principal); L98.492 Non-pressure chronic ulcer of skin of other sites with fat layer exposed; C51.9 Malignant neoplasm of vulva, unspecified; N76.6 Ulceration of vulva; R32 Unspecified urinary incontinence; E03.9 Hypothyroidism, unspecified; Z79.890 Hormone replacement therapy; Z79.899 Other long term (current) drug therapy; Z92.21 Personal history of antineoplastic chemotherapy; Z92.3 Personal history of irradiation
CPT/HCPCS: 11042

== ENCOUNTER → 2024-01-17 | Outpatient (CLI) | payer MEDICARE, SELFPAY | END | disposition home or self-care (01) | PROVIDERS: PCP Nurse Practitioner Family; Referring Provider Surgery; Visit Provider Surgery | DX: R92.8 Other abnormal and inconclusive findings on diagnostic imaging of breast (principal) | CPT/HCPCS: 19081 ==

== ENCOUNTER 2024-02-03 10:45 | Outpatient (RCR) | payer MEDICARE, SELFPAY ==
[2024-01-20 00:46] VITALS: BP 117/54; PULSE 93; RESP 18; TEMP 35.7; BMI 28.8
[2024-01-20 10:41] VITALS: BP 126/41; PULSE 67; RESP 16; TEMP 35.9; BMI 28.8
--- NOTE | 2024-01-20 14:02 | PCM.WC.PN ---
History of Present Illness Date of Service: 01/20/24 Chief Complaint: nonhealing ulcer vulva History of Wound: Kya is a pleasant 73 yo woman that presents to the wound healing center for evaluation and treatment of a nonhealing ulcer of her vulva that has been present for nearly 3 months. She has a history of recurrent vulvar cancer for which she has undergone surgical resection in 2011 with multiple surgeries since that time, her most recent was in September 2022 and she underwent chemotherapy and radiation treatment from June through August 25, 2023. The ulcer has been present since the end of her radiation treatments and she had been doing Sitz baths and applying ointment to the area. Dr. Reveles directed her radiation treatment and recommended referral to wound care at her last follow up. Unfortunately, following her treatment with chemotherapy and radiation treatment she fell and broke her clavicle and was in the Rehab unit at [facility] for a week in August and Dr. Broussard prescribed a compounded ointment that she had been applying that was made at the [facility] pharmacy. But she has not been using this recently and has only been keeping the area clean with Cottonelle disposable wipes after each time she urinates. She does wear an incontinence pad just as a precaution as she has occasional urinary incontinence. Most often she makes it to the bathroom. She notes a small amount of drainage on the pads at the site of the ulcer. She has not been on any recent antibiotics and she has not had any biopsies or cultures of the site. She is due for a PET scan but due to the area not being healed, her oncologist and Dr. Reveles agreed that the results may be skewed and would like to postpone this until her ulcer heals. She denies any odor, increased drainage, or increased pain. Subjective Subjective Kya is here in follow up for a vulvar ulcer and has been tolerating treatment with Santyl and covering with an ABD. She has been having difficulty keeping the ABD pad in place but she has noticed less drainage. She denies odor, erythema or increased drainage. Wound culture on 11/18/23 was positive for anaerobic bacteria and 2 types of Staph and she has completed treatment with antibiotics. Objective Data Objective Data Vital Signs: Vital Signs Temp Pulse Resp BP O2 Del Method 96.7 F L 67 16 126/41 H Room Air 01/20/24 10:41 01/20/24 10:41 01/20/24 10:41 01/20/24 10:41 01/20/24 10:41 Oxygen Delivery Method Room Air Weight: 83.461 kg Body Mass Index (BMI) 28.8 Physical Exam Const alert, oriented x3 and no apparent distress General Appearance: cooperative and comfortable HEENT normocephalic and head/scalp atraumatic Resp normal respiratory effort Effort and Inspection: able to speak in complete sentences Cardio regular rate and regular rhythm Skin Wounds: wounds noted Wound Narrative: as in clinical panel Psych mental status grossly normal, thought process normal, cooperative and affect normal Debridement Note Debridement Note Wound debrided: anterior vulva Laterality: Not Applicable Type of Debridement: Excisional debridement Anesthesia Used: 4% Lidocaine Solution, 5% Lidocaine Gel and Cetacaine Depth: Down to and including healthy tissue and in the subcutaneous layer Percentage of wound debrided: 100 Instrument Used: 3mm curette Tissue Removed: Yellow slough, devitalized tissue Severity: Fat Layer Exposed Amount of bleeding with debridement: Mild Bleeding Controlled with: Compression and gauze Patient tolerated procedure: Patient tolerated procedure well Post-Debridement Measurements and Additional Note: Post-Debridement Measurements/Treatment - Nurse 1 - General Ulcer Assessment Start: 01/20/24 10:41 Freq: Status: Active Protocol: GRACIE Activity Type Activity Date Activity User E-sign Co-sign Detail Recorded Client Recorded Date Recorded By Document 01/20/24 10:41 ELKIN [id number] 01/20/24 10:48 ELKIN 01/20/24 10:41 - Today's Visit Information Type of service Follow-up Visit (Physician/CARE DIRECTOR ) Arrival Mode Ambulatory,Cane Patient Identification Verified (Name & Yes ) Height and Weight Body Mass Index (BMI) 28.8 BMI Classification Overweight Vital Signs Temperature (97.8 F-99.1 F) 96.7 F L Temperature Source Temporal Pulse Rate (60-100) 67 Pulse Location Monitor Respiratory Rate (12-18) 16 Respiratory rate source Observation Oxygen Delivery Method Room Air Blood Pressure (90/60-120/80) 126/41 H Blood Pressure Mean (mm Hg) 69 Source Monitor Position Sitting Blood Pressure Location Left Arm History Since Last Visit- (Skip if this is Patient's initial visit) Have you changed medications since your No last visit? Any new allergies or adverse reactions No Had a fall/change in ADL's that may No increase risk of falls Signs or symptoms of abuse and/or No neglect since last visit Have you been in the hospital since your No last visit? Has dressing in place as prescribed Yes Has compression in place as prescribed N/A Has offloadiing in place as prescribed N/A Experienced any changes in pain level or No management Left Footwear Regular Shoe Right Footwear Regular Shoe Pain Scale: 0-10 Numeric Is Patient Pain Free? Yes - Nurse 1 - General Ulcer Measurement Start: 01/20/24 10:41 Freq: Status: Active Protocol: Activity Type Activity Date Activity User E-sign Co-sign Detail Recorded Client Recorded Date Recorded By Document 01/20/24 10:41 [id number] 01/20/24 10:48 01/20/24 10:41 Wound Center Nurse 1 #1 ANTERIOR VULVA -Current Size (cm) - Length 2 -Current Size (cm) - Width 0.7 -Current Size (cm) - Depth 0.1 -Total Square Cm 1.4 -Exudate Amt Small -Exudate Type Serosanguineous -Wound Margin Distinct, Outline Attached -Granulation Amt Large (67-100%) -Granulation Quality [place],Red -Texture (Bria-wound Skin Appearance) Assessed, Scarring -Moisture (Bria-wound Skin Appearance) Assessed, Maceration -Color (Bria-wound Skin Appearance) Assessed -Temperature (Bria-wound Skin No Abnormality Appearance) (Pt Warm) -Tenderness on Palpation (Bria-wound No Skin Appearance) -Ulcer Cleansing Rinsed/ Irrigated with Saline -Foul Odor after Cleansing No -Anesthetic Used 5% Lidocaine Gel - Nurse 2 - General Ulcer CM Notes Start: 01/20/24 10:41 Freq: Status: Active Protocol: Activity Type Activity Date Activity User E-sign Co-sign Detail Recorded Client Recorded Date Recorded By Document 01/20/24 11:00 [id number] 01/20/24 11:08 01/20/24 11:00 Wound Center Nurse 2 -Time 11:00 -Correct Patient Yes -Correct Side, Site, Position Yes -Correct Procedure Yes -Procedure Performed Yes -Type of Procedure Debridement -Clinical Debridement Subcutaneous -Tissue Removed Subcutaneous -Post Debridement (cm) - Length 1.0 -Post Debridement (cm) - Width 0.3 -Post Debridement (cm) - Depth 0.1 -Total Square (Post) (cm) 0.30 -Area of Debridement (cm) - Length 1.0 -Area of Debridement (cm) - Width 0.3 -Total Square (Area) (cm) 0.30 -Tunneling No -Undermining/Tunneling No -Circular Undermining No -Wound/Ulcer Outcome Not Healed -Ulcer Cleansing Rinsed/ Irrigated with Saline -Foul Odor after Cleansing No -Bioengineered Tissue No -Bleeding Controlled with Pressure -Treatment Response Procedure Tolerated Well -Debridement - Subq, 1st 20sq cm Yes Pain Scale: 0-10 Numeric Is Patient Pain Free? Yes WC - Nurse 3 - General Ulcer D/C NN Start: 01/20/24 10:41 Freq: Status: Active Protocol: Activity Type Activity Date Activity User E-sign Co-sign Detail Recorded Client Recorded Date Recorded By Document 01/20/24 11:14 ELKIN [id number] 01/20/24 11:14 ELKIN 01/20/24 11:14 Wound Care Center Nurse 3 #1 ANTERIOR VULVA -Other Dressing hydrogel -Primary Dressing Covered/Secured with Dry Gauze Pain Scale: 0-10 Numeric Is Patient Pain Free? 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 At home wound-care instructions: Will continue to have her apply Santyl to the ulcer to help with some adherent fibrous slough and cover with an ABD pad to keep the area covered. Keep dressing clean and dry. Off-loading: The patient was instructed to avoid pressure and friction on the affected areas. Reposition every 2 hours at minimum. Avoid prolonged standing and/or dangling of legs. When seated, feet should be elevated at chest level. Frequent ambulation is encouraged. Diet: Patient encouraged to increase protein intake while taking caution to avoid high carbohydrate and/or sugar intake. Labs/cultures/imaging: Wound culture was positive for Anaerobic bacteria and 2 types of Staph. She completed Augmentin. It may also be reasonable to do a biopsy if there is no progress to r/o recurrence or incomplete treatment of her vulvar cancer. PET scan was negative for recurrence 01/10/2024. Follow-up: Return in 2 week for wound care follow up. Return sooner or report to the emergency room should symptoms worsen, or new symptoms arise. Note: [employer] speech recognition patient care technician software was used to create portions of this document. Sound-alike and misspelled words, as well as other patient care technician errors may be contained in the documentation.
[2024-02-03 10:46] VITALS: BP 133/36; PULSE 70; RESP 18; TEMP 36.4; BMI 28.8
--- NOTE | 2024-02-03 12:54 | PCM.WC.PN ---
History of Present Illness Date of Service: 02/03/24 Chief Complaint: nonhealing ulcer vulva History of Wound: Kya is a pleasant 73 yo woman that presents to the wound healing center for evaluation and treatment of a nonhealing ulcer of her vulva that has been present for nearly 3 months. She has a history of recurrent vulvar cancer for which she has undergone surgical resection in 2011 with multiple surgeries since that time, her most recent was in September 2022 and she underwent chemotherapy and radiation treatment from June through August 25, 2023. The ulcer has been present since the end of her radiation treatments and she had been doing Sitz baths and applying ointment to the area. Dr. Reveles directed her radiation treatment and recommended referral to wound care at her last follow up. Unfortunately, following her treatment with chemotherapy and radiation treatment she fell and broke her clavicle and was in the Rehab unit at [facility] for a week in August and Dr. Broussard prescribed a compounded ointment that she had been applying that was made at the [facility] pharmacy. But she has not been using this recently and has only been keeping the area clean with Cottonelle disposable wipes after each time she urinates. She does wear an incontinence pad just as a precaution as she has occasional urinary incontinence. Most often she makes it to the bathroom. She notes a small amount of drainage on the pads at the site of the ulcer. She has not been on any recent antibiotics and she has not had any biopsies or cultures of the site. She is due for a PET scan but due to the area not being healed, her oncologist and Dr. Reveles agreed that the results may be skewed and would like to postpone this until her ulcer heals. She denies any odor, increased drainage, or increased pain. Subjective Subjective Kya is here in follow up for a vulvar ulcer and has been tolerating treatment with Santyl and covering with an ABD. She has been having difficulty keeping the ABD pad in place but she has noticed less drainage. She denies odor, erythema or increased drainage. Wound culture on 11/18/23 was positive for anaerobic bacteria and 2 types of Staph and she has completed treatment with antibiotics. Objective Data Objective Data Vital Signs: Vital Signs Temp Pulse Resp BP O2 Del Method 97.5 F L 70 18 133/36 H Room Air 02/03/24 10:46 02/03/24 10:46 02/03/24 10:46 02/03/24 10:46 02/03/24 10:46 Oxygen Delivery Method Room Air Weight: 83.461 kg Body Mass Index (BMI) 28.8 Physical Exam Const alert, oriented x3 and no apparent distress General Appearance: cooperative and comfortable HEENT normocephalic and head/scalp atraumatic Resp normal respiratory effort Effort and Inspection: able to speak in complete sentences Cardio regular rate and regular rhythm Skin Wounds: wounds noted Wound Narrative: as in clinical panel mild erythema and satellite papular lesions c/w candidal dermatitis in skin folds of groin Psych mental status grossly normal, thought process normal, cooperative and affect normal Debridement Note Debridement Note Wound debrided: anterior vulva Laterality: Not Applicable Type of Debridement: Excisional debridement Anesthesia Used: 5% Lidocaine Gel and Cetacaine Depth: in the subcutaneous layer Percentage of wound debrided: 100 Instrument Used: 3mm curette Tissue Removed: Yellow slough, devitalized tissue Severity: Fat Layer Exposed Amount of bleeding with debridement: Mild Bleeding Controlled with: Compression and gauze Patient tolerated procedure: Patient tolerated procedure well Post-Debridement Measurements and Additional Note: Post-Debridement Measurements/Treatment - Nurse 1 - General Ulcer Assessment Start: 01/20/24 10:41 Freq: Status: Active Protocol: GRACIE Activity Type Activity Date Activity User E-sign Co-sign Detail Recorded Client Recorded Date Recorded By Document 01/20/24 10:41 [id number] 01/20/24 10:48 KW Document 02/03/24 10:46 KW [id number] 02/03/24 10:55 KW 01/20/24 02/03/24 10:41 10:46 - Today's Visit Information Type of service Follow-up Visit Follow-up Visit (Physician/GEOMETRY TEACHER (Physician/GEOMETRY TEACHER ) ) Arrival Mode Ambulatory,Cane Ambulatory Patient Identification Verified (Name & Yes Yes ) Height and Weight Body Mass Index (BMI) 28.8 28.8 BMI Classification Overweight Overweight Vital Signs Temperature (97.8 F-99.1 F) 96.7 F L 97.5 F L Temperature Source Temporal Temporal Pulse Rate (60-100) 67 70 Pulse Location Monitor Monitor Respiratory Rate (12-18) 16 18 Respiratory rate source Observation Observation Oxygen Delivery Method Room Air Room Air Blood Pressure (90/60-120/80) 126/41 H 133/36 H Blood Pressure Mean (mm Hg) 69 68 Source Monitor Monitor Position Sitting Sitting Blood Pressure Location Left Arm Right Arm History Since Last Visit- (Skip if this is Patient's initial visit) Have you changed medications since your No No last visit? Any new allergies or adverse reactions No No Had a fall/change in ADL's that may No No increase risk of falls Signs or symptoms of abuse and/or No No neglect since last visit Have you been in the hospital since your No No last visit? Has dressing in place as prescribed Yes Yes Has compression in place as prescribed N/A N/A Has offloadiing in place as prescribed N/A N/A Experienced any changes in pain level or No No management Left Footwear Regular Shoe Regular Shoe Right Footwear Regular Shoe Regular Shoe Pain Scale: 0-10 Numeric Is Patient Pain Free? Yes Yes WC - Nurse 1 - General Ulcer Measurement Start: 01/20/24 10:41 Freq: Status: Active Protocol: Activity Type Activity Date Activity User E-sign Co-sign Detail Recorded Client Recorded Date Recorded By Document 01/20/24 10:41 KW [id number] 01/20/24 10:48 KW Document 02/03/24 10:46 KW [id number] 02/03/24 10:55 KW 01/20/24 02/03/24 10:41 10:46 Wound Center Nurse 1 #1 ANTERIOR VULVA -Current Size (cm) - Length 2 2 -Current Size (cm) - Width 0.7 1.5 -Current Size (cm) - Depth 0.1 0.1 -Total Square Cm 1.4 3.0 -Exudate Amt Small Small -Exudate Type Serosanguineous Serosanguineous -Wound Margin Distinct, Outline Attached -Granulation Amt Large (67-100%) Large (67-100%) -Granulation Quality [place],Red [place] -Texture (Bria-wound Skin Appearance) Assessed, Assessed Scarring -Moisture (Bria-wound Skin Appearance) Assessed, Assessed, Maceration Maceration -Color (Bria-wound Skin Appearance) Assessed Assessed -Temperature (Bria-wound Skin No Abnormality No Abnormality Appearance) (Pt Warm) (Pt Warm) -Tenderness on Palpation (Bria-wound No No Skin Appearance) -Ulcer Cleansing Rinsed/ Rinsed/ Irrigated with Irrigated with Saline Saline -Foul Odor after Cleansing No No -Anesthetic Used 5% Lidocaine 5% Lidocaine Gel Gel - Nurse 2 - General Ulcer CM Notes Start: 01/20/24 10:41 Freq: Status: Active Protocol: Activity Type Activity Date Activity User E-sign Co-sign Detail Recorded Client Recorded Date Recorded By Document 01/20/24 11:00 GM [id number] 01/20/24 11:08 GM Document 02/03/24 11:11 GM [id number] 02/03/24 11:20 01/20/24 02/03/24 11:00 11:11 Wound Center Nurse 2 #1 ANTERIOR VULVA -Time 11:00 11:12 -Correct Patient Yes Yes -Correct Side, Site, Position Yes Yes -Correct Procedure Yes Yes -Procedure Performed Yes Yes -Type of Procedure Debridement Debridement -Clinical Debridement Subcutaneous Subcutaneous -Tissue Removed Subcutaneous Subcutaneous -Post Debridement (cm) - Length 1.0 0.8 -Post Debridement (cm) - Width 0.3 0.2 -Post Debridement (cm) - Depth 0.1 0.1 -Total Square (Post) (cm) 0.30 0.16 -Area of Debridement (cm) - Length 1.0 0.8 -Area of Debridement (cm) - Width 0.3 0.2 -Total Square (Area) (cm) 0.30 0.16 -Tunneling No No -Undermining/Tunneling No No -Circular Undermining No No -Wound/Ulcer Outcome Not Healed Not Healed -Ulcer Cleansing Rinsed/ Rinsed/ Irrigated with Irrigated with Saline Saline -Foul Odor after Cleansing No No -Bioengineered Tissue No No -Bleeding Controlled with Pressure Pressure -Treatment Response Procedure Procedure Tolerated Well Tolerated Well -Debridement - Subq, 1st 20sq cm Yes Yes Pain Scale: 0-10 Numeric Is Patient Pain Free? Yes Yes - Nurse 3 - General Ulcer D/C NN Start: 01/20/24 10:41 Freq: Status: Active Protocol: Activity Type Activity Date Activity User E-sign Co-sign Detail Recorded Client Recorded Date Recorded By Document 01/20/24 11:14 KW [id number] 01/20/24 11:14 KW Document 02/03/24 11:28 RB [id number] 02/03/24 11:28 RB 01/20/24 02/03/24 11:14 11:28 Wound Care Center Nurse 3 #1 ANTERIOR VULVA -Ulcer Cleansing Rinsed/ Irrigated with Saline -Primary Dressing Applied C Hydrogel ($) -Other Dressing hydrogel -Primary Dressing Covered/Secured with Dry Gauze Treatment Response Procedure Tolerated Well Pain Scale: 0-10 Numeric Is Patient Pain Free? 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 At home wound-care instructions: Will have her change to collagen hydrogel from Santyl to the ulcer to help with some adherent fibrous slough and cover with an ABD pad to keep the area covered. Keep dressing clean and dry. Off-loading: The patient was instructed to avoid pressure and friction on the affected areas. Reposition every 2 hours at minimum. Avoid prolonged standing and/or dangling of legs. When seated, feet should be elevated at chest level. Frequent ambulation is encouraged. Diet: Patient encouraged to increase protein intake while taking caution to avoid high carbohydrate and/or sugar intake. Labs/cultures/imaging: Wound culture was positive for Anaerobic bacteria and 2 types of Staph. She completed Augmentin. It may also be reasonable to do a biopsy if there is no progress to r/o recurrence or incomplete treatment of her vulvar cancer. PET scan was negative for recurrence 01/10/2024. Follow-up: Return in 3 weeks for wound care follow up. Return sooner or report to the emergency room should symptoms worsen, or new symptoms arise. Note: [employer] speech recognition pottery decoration designer software was used to create portions of this document. Sound-alike and misspelled words, as well as other pottery decoration designer errors may be contained in the documentation.
== END 2024-02-18 23:59 | disposition home or self-care (01) ==
LOC: WC 10:45
PROVIDERS: PCP Nurse Practitioner Family; Referring Provider Obstetrics & Gynecology; Visit Provider Family Medicine
DX: N76.6 Ulceration of vulva (principal); L98.492 Non-pressure chronic ulcer of skin of other sites with fat layer exposed; C51.9 Malignant neoplasm of vulva, unspecified; L58.9 Radiodermatitis, unspecified; R32 Unspecified urinary incontinence; E03.9 Hypothyroidism, unspecified; Z79.890 Hormone replacement therapy; Z79.899 Other long term (current) drug therapy; Z92.21 Personal history of antineoplastic chemotherapy; Z92.3 Personal history of irradiation
CPT/HCPCS: 11042

== ENCOUNTER 2024-03-16 09:45 | Outpatient (RCR) | payer MEDICARE, SELFPAY ==
[2024-02-19 00:51] VITALS: BP 117/54; PULSE 93; RESP 18; TEMP 35.7; BMI 28.8
[2024-02-24 10:41] VITALS: BP 159/47; PULSE 69; RESP 18; TEMP 36.1; BMI 28.8
--- NOTE | 2024-02-24 13:50 | PN.PCM_ITS ---
History of Present Illness Date of Service: 02/24/24 Chief Complaint: nonhealing ulcer vulva History of Wound: Kya is a pleasant 73 yo woman that presents to the wound healing center for evaluation and treatment of a nonhealing ulcer of her vulva that has been present for nearly 3 months. She has a history of recurrent vulvar cancer for which she has undergone surgical resection in 2011 with multiple surgeries since that time, her most recent was in September 2022 and she underwent chemotherapy and radiation treatment from June through August 25, 2023. The ulcer has been present since the end of her radiation treatments and she had been doing Sitz baths and applying ointment to the area. Dr. Reveles directed her radiation treatment and recommended referral to wound care at her last follow up. Unfortunately, following her treatment with chemotherapy and radiation treatment she fell and broke her clavicle and was in the Rehab unit at [facility] for a week in August and Dr. Broussard prescribed a compounded ointment that she had been applying that was made at the [facility] pharmacy. But she has not been using this recently and has only been keeping the area clean with Cottonelle disposable wipes after each time she urinates. She does wear an incontinence pad just as a precaution as she has occasional urinary incontinence. Most often she makes it to the bathroom. She notes a small amount of drainage on the pads at the site of the ulcer. She has not been on any recent antibiotics and she has not had any b iopsies or cultures of the site. She is due for a PET scan but due to the area not being healed, her oncologist and Dr. Reveles agreed that the results may be skewed and would like to postpone this until her ulcer heals. She denies any odor, increased drainage, or increased pain. Subjective Subjective yKa is here in follow up for a vulvar ulcer and has been tolerating hydrogel and covering with an ABD. She has been having difficulty keeping the ABD pad in place but she has noticed less drainage. She denies odor, erythema or increased drainage. Wound culture on 11/18/23 was positive for anaerobic bacteria and 2 types of Staph and she has completed treatment with antibiotics. She is also undergoing evaluation for possible breast cancer with biopsy planned for 02/27/24. Objective Data Objective Data Vital Signs: Vital Signs Temp Pulse Resp BP O2 Del Method 96.9 F L 69 18 159/47 H Room Air 02/24/24 10:41 02/24/24 10:41 02/24/24 10:41 02/24/24 10:41 02/24/24 10:41 Oxygen Delivery Method Room Air Weight: 83.461 kg Body Mass Index (BMI) 28.8 Physical Exam Const alert, oriented x3 and no apparent distress General Appearance: cooperative and comfortable HEENT normocephalic and head/scalp atraumatic Resp normal respiratory effort Effort and Inspection: able to speak in complete sentences Cardio regular rate and regular rhythm Skin Wounds: wounds noted Wound Narrative: as in clinical panel mild erythema and satellite papular lesions c/w candidal dermatitis in skin folds of groin Psych mental status grossly normal, thought process normal, cooperative and affect normal Debridement Note Debridement Note Wound debrided: anterior vulva Laterality: Not Applicable Type of Debridement: Excisional debridement Anesthesia Used: 5% Lidocaine Gel and Cetacaine Depth: Down to and including healthy tissue and in the subcutaneous layer Percentage of wound debrided: 100 Instrument Used: 3mm curette Tissue Removed: Yellow slough, devitalized tissue Severity: Fat Layer Exposed Amount of bleeding with debridement: Mild Bleeding Controlled with: Compression and gauze Patient tolerated procedure: Patient tolerated procedure well Post-Debridement Measurements and Additional Note: Post-Debridement Measurements/Treatment - Nurse 1 - General Ulcer Assessment Start: 02/24/24 10:41 Freq: Status: Active Protocol: GRACIE Activity Type Activity Date Activity User E-sign Co-sign Detail Recorded Client Recorded Date Recorded By Document 02/24/24 10:41 ELKIN [id number] 02/24/24 10:48 ELKIN 02/24/24 10:41 - Today's Visit Information Type of service Follow-up Visit (Physician/DOCUMENT CONTROL SPECIALIST ) Arrival Mode Ambulatory Patient Identification Verified (Name & Yes ) Height and Weight Body Mass Index (BMI) 28.8 BMI Classification Overweight Vital Signs Temperature (97.8 F-99.1 F) 96.9 F L Temperature Source Temporal Pulse Rate (60-100) 69 Pulse Location Monitor Respiratory Rate (12-18) 18 Respiratory rate source Observation Oxygen Delivery Method Room Air Blood Pressure (90/60-120/80) 159/47 H Blood Pressure Mean (mm Hg) 84 Source Monitor Position Semi-Fowlers Blood Pressure Location Right Arm History Since Last Visit- (Skip if this is Patient's initial visit) Have you changed medications since your No last visit? Any new allergies or adverse reactions No Had a fall/change in ADL's that may No increase risk of falls Signs or symptoms of abuse and/or No neglect since last visit Have you been in the hospital since your No last visit? Has dressing in place as prescribed Yes Has compression in place as prescribed N/A Has offloadiing in place as prescribed N/A Experienced any changes in pain level or No management Left Footwear Regular Shoe Right Footwear Regular Shoe Pain Scale: 0-10 Numeric Is Patient Pain Free? Yes - Nurse 1 - General Ulcer Measurement Start: 02/24/24 10:41 Freq: Status: Active Protocol: Activity Type Activity Date Activity User E-sign Co-sign Detail Recorded Client Recorded Date Recorded By Document 02/24/24 10:41 [id number] 02/24/24 10:48 02/24/24 10:41 Wound Center Nurse 1 #1 ANTERIOR VULVA -Current Size (cm) - Length 0.8 -Current Size (cm) - Width 0.2 -Current Size (cm) - Depth 0.1 -Total Square Cm 0.16 -Exudate Amt Small -Exudate Type Serosanguineous -Granulation Amt Large (67-100%) -Granulation Quality [place] -Texture (Bria-wound Skin Appearance) Assessed -Moisture (Bria-wound Skin Appearance) Assessed, Maceration -Color (Bria-wound Skin Appearance) Assessed -Temperature (Bria-wound Skin No Abnormality Appearance) (Pt Warm) -Tenderness on Palpation (Bria-wound No Skin Appearance) -Ulcer Cleansing Rinsed/ Irrigated with Saline -Foul Odor after Cleansing No -Anesthetic Used 5% Lidocaine Gel - Nurse 2 - General Ulcer CM Notes Start: 02/24/24 10:41 Freq: Status: Active Protocol: Activity Type Activity Date Activity User E-sign Co-sign Detail Recorded Client Recorded Date Recorded By Document 02/24/24 11:09 [id number] 02/24/24 11:18 02/24/24 11:09 Wound Center Nurse 2 -Time 11:09 -Correct Patient Yes -Correct Side, Site, Position Yes -Correct Procedure Yes -Procedure Performed Yes -Type of Procedure Debridement -Clinical Debridement Subcutaneous -Tissue Removed Subcutaneous -Post Debridement (cm) - Length 0.8 -Post Debridement (cm) - Width 1.0 -Post Debridement (cm) - Depth 0.1 -Total Square (Post) (cm) 0.80 -Area of Debridement (cm) - Length 0.8 -Area of Debridement (cm) - Width 1.0 -Total Square (Area) (cm) 0.80 -Tunneling No -Undermining/Tunneling No -Circular Undermining No -Wound/Ulcer Outcome Not Healed -Ulcer Cleansing Rinsed/ Irrigated with Saline -Foul Odor after Cleansing No -Bioengineered Tissue No -Bleeding Controlled with Pressure -Treatment Response Procedure Tolerated Well -Debridement - Subq, 1st 20sq cm Yes Pain Scale: 0-10 Numeric Is Patient Pain Free? Yes - Nurse 3 - General Ulcer D/C NN Start: 02/24/24 10:41 Freq: Status: Active Protocol: Activity Type Activity Date Activity User E-sign Co-sign Detail Recorded Client Recorded Date Recorded By Document 02/24/24 11:35 ELKIN [id number] 02/24/24 11:35 ELKIN 02/24/24 11:35 Wound Care Center Nurse 3 #1 ANTERIOR VULVA -Other Dressing hydrogel -Primary Dressing Covered/Secured with Dry Gauze Pain Scale: 0-10 Numeric Is Patient Pain Free? 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 At home wound-care instructions: Will have her continue to use collagen hydrogel to the ulcer and cover with an ABD pad to keep the area covered. Keep dressing clean and dry. HBO therapy has been discussed with the patient as an adjunct in healing her vulva area due to previous radiation but she declines to proceed with this because of financial concerns, claustrophobia, time commitment and transportation. She also is currently undergoing work up for abnormal mammogram with biopsy scheduled on 02/27/24. Off-loading: The patient was instructed to avoid pressure and friction on the affected areas. Reposition every 2 hours at minimum. Avoid prolonged standing and/or dangling of legs. When seated, feet should be elevated at chest level. Frequent ambulation is encouraged. Diet: Patient encouraged to increase protein intake while taking caution to avoid high carbohydrate and/or sugar intake. She has been drinking protein shakes once daily. Labs/cultures/imaging: Wound culture was positive for Anaerobic bacteria and 2 types of Staph. She completed Augmentin. It may also be reasonable to do a biopsy if there is no progress to r/o recurrence or incomplete treatment of her vulvar cancer. PET scan was negative for recurrence 01/10/2024. Wound culture done 02/24/24 to evaluate for possible infection as a factor impeding healing. Follow-up: Return in 2 weeks for wound care follow up. Return sooner or report to the emergency room should symptoms worsen, or new symptoms arise. Note: [employer] speech recognition research kennel supervisor software was used to create portions of this document. Sound-alike and misspelled words, as well as other research kennel supervisor errors may be contained in the documentation.
[2024-03-16 09:45] VITALS: BP 150/56; PULSE 62; RESP 18; TEMP 35.7; BMI 28.8
--- NOTE | 2024-03-16 14:15 | PCM.WC.PN ---
History of Present Illness Date of Service: 03/16/24 Chief Complaint: nonhealing ulcer vulva History of Wound: Kya is a pleasant 73 yo woman that presents to the wound healing center for evaluation and treatment of a nonhealing ulcer of her vulva that has been present for nearly 3 months. She has a history of recurrent vulvar cancer for which she has undergone surgical resection in 2011 with multiple surgeries since that time, her most recent was in September 2022 and she underwent chemotherapy and radiation treatment from June through August 25, 2023. The ulcer has been present since the end of her radiation treatments and she had been doing Sitz baths and applying ointment to the area. Dr. Reveles directed her radiation treatment and recommended referral to wound care at her last follow up. Unfortunately, following her treatment with chemotherapy and radiation treatment she fell and broke her clavicle and was in the Rehab unit at [facility] for a week in August and Dr. Broussard prescribed a compounded ointment that she had been applying that was made at the [facility] pharmacy. But she has not been using this recently and has only been keeping the area clean with Cottonelle disposable wipes after each time she urinates. She does wear an incontinence pad just as a precaution as she has occasional urinary incontinence. Most often she makes it to the bathroom. She notes a small amount of drainage on the pads at the site of the ulcer. She has not been on any recent antibiotics and she has not had any biopsies or cultures of the site. She is due for a PET scan but due to the area not being healed, her oncologist and Dr. Reveles agreed that the results may be skewed and would like to postpone this until her ulcer heals. She denies any odor, increased drainage, or increased pain. Subjective Subjective Kya is here in follow up for a vulvar ulcer and has been tolerating hydrogel and covering with an ABD. She has been having difficulty keeping the ABD pad in place but she has noticed less drainage. She denies odor, erythema or increased drainage. Wound culture on 11/18/23 was positive for anaerobic bacteria and 2 types of Staph and she has completed treatment with antibiotics. Wound culture taken 02/24/24 positive for multiple vaginal priscila bacteria as well as anaerobic cocci and she was prescribed Flagyl and Amoxicillin which she completed. She is also undergoing evaluation for possible breast cancer, still have not been able to perform biopsy. Her son unexpectedly from heart failure in his sleep earlier this month. Objective Data Objective Data Vital Signs: Vital Signs Temp Pulse Resp BP O2 Del Method 96.2 F L 62 18 150/56 H Room Air 03/16/24 09:45 03/16/24 09:45 03/16/24 09:45 03/16/24 09:45 03/16/24 09:45 Oxygen Delivery Method Room Air Weight: 83.461 kg Body Mass Index (BMI) 28.8 Lab / Micro Data Micro: Microbiology 02/24/24 11:15 Wound - Vaginal Gram Stain - Final 02/24/24 11:15 Wound - Vaginal Wound Culture - Final Streptococcus constellatus con Gardnerella vaginalis 02/24/24 11:15 Wound - Vaginal Anaerobic Culture - Final [place] vaginae Anaerobic cocci Physical Exam Const alert, oriented x3 and no apparent distress General Appearance: cooperative and comfortable HEENT normocephalic and head/scalp atraumatic Resp normal respiratory effort Effort and Inspection: able to speak in complete sentences Cardio regular rate and regular rhythm Skin Wounds: wounds noted Wound Narrative: as in clinical panel mild erythema and satellite papular lesions c/w candidal dermatitis in skin folds of groin Psych mental status grossly normal, thought process normal, cooperative and affect normal Debridement Note Debridement Note Wound debrided: anterior vulva Laterality: Not Applicable Type of Debridement: Excisional debridement Anesthesia Used: 4% Lidocaine Solution, 5% Lidocaine Gel and Cetacaine Depth: Down to and including healthy tissue and in the subcutaneous layer Percentage of wound debrided: 100 Instrument Used: 3mm curette Tissue Removed: Yellow slough, devitalized tissue Severity: Fat Layer Exposed Bleeding Controlled with: Compression and gauze Patient tolerated procedure: Patient tolerated procedure well Post-Debridement Measurements and Additional Note: Post-Debridement Measurements/Treatment - Nurse 1 - General Ulcer Assessment Start: 02/24/24 10:41 Freq: Status: Active Protocol: GRACIE Activity Type Activity Date Activity User E-sign Co-sign Detail Recorded Client Recorded Date Recorded By Document 02/24/24 10:41 ELKIN [id number] 02/24/24 10:48 KW Document 03/16/24 09:45 ELKIN [id number] 03/16/24 09:54 KW 02/24/24 03/16/24 10:41 09:45 - Today's Visit Information Type of service Follow-up Visit Follow-up Visit (Physician/STEAM PRESS TENDER (Physician/STEAM PRESS TENDER ) ) Arrival Mode Ambulatory Ambulatory Patient Identification Verified (Name & Yes Yes ) Height and Weight Body Mass Index (BMI) 28.8 28.8 BMI Classification Overweight Overweight Vital Signs Temperature (97.8 F-99.1 F) 96.9 F L 96.2 F L Temperature Source Temporal Temporal Pulse Rate (60-100) 69 62 Pulse Location Monitor Monitor Respiratory Rate (12-18) 18 18 Respiratory rate source Observation Observation Oxygen Delivery Method Room Air Room Air Blood Pressure (90/60-120/80) 159/47 H 150/56 H Blood Pressure Mean (mm Hg) 84 87 Source Monitor Monitor Position Semi-Fowlers Sitting Blood Pressure Location Right Arm Left Arm History Since Last Visit- (Skip if this is Patient's initial visit) Have you changed medications since your No No last visit? Any new allergies or adverse reactions No No Had a fall/change in ADL's that may No No increase risk of falls Signs or symptoms of abuse and/or No No neglect since last visit Have you been in the hospital since your No No last visit? Has dressing in place as prescribed Yes Yes Has compression in place as prescribed N/A N/A Has offloadiing in place as prescribed N/A N/A Experienced any changes in pain level or No No management Left Footwear Regular Shoe Regular Shoe Right Footwear Regular Shoe Regular Shoe Pain Scale: 0-10 Numeric Is Patient Pain Free? Yes Yes - Nurse 1 - General Ulcer Measurement Start: 02/24/24 10:41 Freq: Status: Active Protocol: Activity Type Activity Date Activity User E-sign Co-sign Detail Recorded Client Recorded Date Recorded By Document 02/24/24 10:41 [id number] 02/24/24 10:48 KW Document 03/16/24 09:45 KW [id number] 03/16/24 09:54 KW 02/24/24 03/16/24 10:41 09:45 Wound Center Nurse 1 #1 ANTERIOR VULVA -Current Size (cm) - Length 0.8 1 -Current Size (cm) - Width 0.2 1.5 -Current Size (cm) - Depth 0.1 -Total Square Cm 0.16 1.5 -Exudate Amt Small Small -Exudate Type Serosanguineous Serosanguineous -Wound Margin Distinct, Outline Attached -Granulation Amt Large (67-100%) Small (1-33%) -Granulation Quality [place] -Necrosis Amt Small (1-33%) -Necrotic Tissue Type Adherent Slough -Texture (Bria-wound Skin Appearance) Assessed Assessed -Moisture (Bria-wound Skin Appearance) Assessed, Assessed, Maceration Maceration -Color (Bria-wound Skin Appearance) Assessed Assessed -Temperature (Bria-wound Skin No Abnormality No Abnormality Appearance) (Pt Warm) (Pt Warm) -Tenderness on Palpation (Bria-wound No No Skin Appearance) -Ulcer Cleansing Rinsed/ Rinsed/ Irrigated with Irrigated with Saline Saline -Foul Odor after Cleansing No No -Anesthetic Used 5% Lidocaine 5% Lidocaine Gel Gel WC - Nurse 2 - General Ulcer CM Notes Start: 02/24/24 10:41 Freq: Status: Active Protocol: Activity Type Activity Date Activity User E-sign Co-sign Detail Recorded Client Recorded Date Recorded By Document 02/24/24 11:09 [id number] 02/24/24 11:18 Document 03/16/24 10:18 [id number] 03/16/24 10:21 02/24/24 03/16/24 11:09 10:18 Wound Center Nurse 2 #1 ANTERIOR VULVA -Time 11:09 10:18 -Correct Patient Yes Yes -Correct Side, Site, Position Yes Yes -Correct Procedure Yes Yes -Procedure Performed Yes Yes -Type of Procedure Debridement Debridement -Clinical Debridement Subcutaneous Subcutaneous -Tissue Removed Subcutaneous Subcutaneous -Post Debridement (cm) - Length 0.8 0.2 -Post Debridement (cm) - Width 1.0 0.1 -Post Debridement (cm) - Depth 0.1 0.1 -Total Square (Post) (cm) 0.80 0.02 -Area of Debridement (cm) - Length 0.8 0.2 -Area of Debridement (cm) - Width 1.0 0.1 -Total Square (Area) (cm) 0.80 0.02 -Tunneling No No -Undermining/Tunneling No No -Circular Undermining No No -Wound/Ulcer Outcome Not Healed Not Healed -Ulcer Cleansing Rinsed/ Rinsed/ Irrigated with Irrigated with Saline Saline -Foul Odor after Cleansing No No -Bioengineered Tissue No No -Bleeding Controlled with Pressure Pressure -Treatment Response Procedure Procedure Tolerated Well Tolerated Well -Debridement - Subq, 1st 20sq cm Yes Yes Pain Scale: 0-10 Numeric Is Patient Pain Free? Yes Yes - Nurse 3 - General Ulcer D/C NN Start: 02/24/24 10:41 Freq: Status: Active Protocol: Activity Type Activity Date Activity User E-sign Co-sign Detail Recorded Client Recorded Date Recorded By Document 02/24/24 11:35 KW [id number] 02/24/24 11:35 KW Document 03/16/24 10:27 DS [id number] 03/16/24 10:30 DS 02/24/24 03/16/24 11:35 10:27 Wound Care Center Nurse 3 #1 ANTERIOR VULVA -Ulcer Cleansing Rinsed/ Irrigated with Saline -Other Dressing hydrogel hydrogel, gauze -Primary Dressing Covered/Secured with Dry Gauze Pain Scale: 0-10 Numeric Is Patient Pain Free? 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 At home wound-care instructions: Will have her continue to use collagen hydrogel to the ulcer and cover with an ABD pad to keep the area covered. Keep dressing clean and dry. HBO therapy has been discussed with the patient as an adjunct in healing her vulva area due to previous radiation but she declines to proceed with this because of financial concerns, claustrophobia, time commitment and transportation. She also is currently undergoing work up for abnormal mammogram and they have not been able to perform biopsy due to not being able to reach lesion. Off-loading: The patient was instructed to avoid pressure and friction on the affected areas. Reposition every 2 hours at minimum. Avoid prolonged standing and/or dangling of legs. When seated, feet should be elevated at chest level. Frequent ambulation is encouraged. Diet: Patient encouraged to increase protein intake while taking caution to avoid high carbohydrate and/or sugar intake. She has been drinking protein shakes once daily. Labs/cultures/imaging: Wound culture was positive for Anaerobic bacteria and 2 types of Staph. She completed Augmentin. It may also be reasonable to do a biopsy if there is no progress to r/o recurrence or incomplete treatment of her vulvar cancer. PET scan was negative for recurrence 01/10/2024. Wound culture positive for multiple vaginal priscila bacteria as well as anaerobic cocci and she was prescribed Flagyl and Amoxicillin which she completed. Follow-up: Return in 3 weeks for wound care follow up. Return sooner or report to the emergency room should symptoms worsen, or new symptoms arise. Note: [employer] speech recognition software licensing specialist software was used to create portions of this document. Sound-alike and misspelled words, as well as other software licensing specialist errors may be contained in the documentation.
== END 2024-03-20 23:59 | disposition home or self-care (01) ==
LOC: WC 09:45
PROVIDERS: PCP Nurse Practitioner Family; Referring Provider Obstetrics & Gynecology; Visit Provider Family Medicine
DX: L58.9 Radiodermatitis, unspecified (principal); L98.492 Non-pressure chronic ulcer of skin of other sites with fat layer exposed; C51.9 Malignant neoplasm of vulva, unspecified; N76.6 Ulceration of vulva; E03.9 Hypothyroidism, unspecified; R32 Unspecified urinary incontinence; Z79.890 Hormone replacement therapy; Z79.899 Other long term (current) drug therapy
CPT/HCPCS: 11042; 87070; 87075; 87077; 87186; 87205

== ENCOUNTER 2024-04-13 11:11 | Outpatient (RCR) | payer MEDICARE, SELFPAY ==
[2024-03-21 00:47] VITALS: BP 117/54; PULSE 93; RESP 18; TEMP 35.7; BMI 28.8
[2024-04-13 11:31] VITALS: BMI 28.8
--- NOTE | 2024-04-13 13:48 | PN.PCM_ITS ---
History of Present Illness Date of Service: 04/13/24 Chief Complaint: nonhealing ulcer vulva History of Wound: Kya is a pleasant 73 yo woman that presents to the wound healing center for evaluation and treatment of a nonhealing ulcer of her vulva that has been present for nearly 3 months. She has a history of recurrent vulvar cancer for which she has undergone surgical resection in 2011 with multiple surgeries since that time, her most recent was in September 2022 and she underwent chemotherapy and radiation treatment from June through August 25, 2023. The ulcer has been present since the end of her radiation treatments and she had been doing Sitz baths and applying ointment to the area. Dr. Reveles directed her radiation treatment and recommended referral to wound care at her last follow up. Unfortunately, following her treatment with chemotherapy and radiation treatment she fell and broke her clavicle and was in the Rehab unit at [facility] for a week in August and Dr. Broussard prescribed a compounded ointment that she had been applying that was made at the [facility] pharmacy. But she has not been using this recently and has only been keeping the area clean with Cottonelle disposable wipes after each time she urinates. She does wear an incontinence pad just as a precaution as she has occasional urinary incontinence. Most often she makes it to the bathroom. She notes a small amount of drainage on the pads at the site of the ulcer. She has not been on any recent antibiotics and she has not had any b iopsies or cultures of the site. She is due for a PET scan but due to the area not being healed, her oncologist and Dr. Reveles agreed that the results may be skewed and would like to postpone this until her ulcer heals. She denies any odor, increased drainage, or increased pain. Subjective Subjective Kya is here in follow up for a vulvar ulcer and has been tolerating hydrogel and covering with an ABD. She has been having difficulty keeping the ABD pad in place but she has noticed less drainage. She denies odor, erythema or increased drainage. Wound culture on 11/18/23 was positive for anaerobic bacteria and 2 types of Staph and she has completed treatment with antibiotics. Wound culture taken 02/24/24 positive for multiple vaginal priscila bacteria as well as anaerobic cocci and she was prescribed Flagyl and Amoxicillin which she completed. She is also undergoing evaluation for possible breast cancer, still have not been able to perform biopsy. Her son unexpectedly from heart failure in his sleep in February. Objective Data Objective Data Vital Signs: Vital Signs Temp Pulse Resp BP 96.2 F L 93 18 117/54 L 03/21/24 00:47 03/21/24 00:47 03/21/24 00:47 03/21/24 00:47 Weight: 83.461 kg Body Mass Index (BMI) 28.8 Physical Exam Const alert, oriented x3 and no apparent distress General Appearance: cooperative and comfortable HEENT normocephalic and head/scalp atraumatic Resp normal respiratory effort Effort and Inspection: able to speak in complete sentences Cardio regular rate and regular rhythm Skin Wounds: wounds noted Wound Narrative: as in clinical panel Psych mental status grossly normal, thought process normal, cooperative and affect normal Debridement Note Debridement Note Wound debrided: anterior vulva Laterality: Not Applicable Type of Debridement: Excisional debridement Anesthesia Used: 4% Lidocaine Solution Depth: Down to and including healthy tissue and in the subcutaneous layer Percentage of wound debrided: 100 Instrument Used: 3mm curette Tissue Removed: Yellow slough, devitalized tissue Severity: Fat Layer Exposed Amount of bleeding with debridement: Mild Bleeding Controlled with: Compression and gauze Patient tolerated procedure: Patient tolerated procedure well Post-Debridement Measurements and Additional Note: Post-Debridement Measurements/Treatment - Nurse 1 - General Ulcer Assessment Start: 04/13/24 11:31 Freq: Status: Active Protocol: GRACIE Activity Type Activity Date Activity User E-sign Co-sign Detail Recorded Client Recorded Date Recorded By Document 04/13/24 11:31 SC [id number] 04/13/24 11:45 SC 04/13/24 11:31 - Today's Visit Information Arrival Mode Ambulatory Accompanied by SELF Patient Identification Verified (Name & Yes ) Safety Precautions Fall Prevention Height and Weight Body Mass Index (BMI) 28.8 BMI Classification Overweight Vital Signs Comment BP wouldn't take pt. didn't want manual, pt is stable Pain Scale: 0-10 Numeric Is Patient Pain Free? Yes - Nurse 1 - General Ulcer Measurement Start: 04/13/24 11:31 Freq: Status: Active Protocol: Activity Type Activity Date Activity User E-sign Co-sign Detail Recorded Client Recorded Date Recorded By Document 04/13/24 11:31 SC [id number] 04/13/24 11:45 SC 04/13/24 11:31 Wound Center Nurse 1 #1 ANTERIOR VULVA -Current Size (cm) - Length 0.1 -Current Size (cm) - Width 0.1 -Current Size (cm) - Depth 0.1 -Total Square Cm 0.01 -Photo Taken No -Tunneling No -Undermining/Tunneling No -Circular Undermining No -Exudate Amt None Present -Wound Margin Thickened -Granulation Amt Small (1-33%) -Granulation Quality Pale,[place] -Necrosis Amt Large (67-100%) -Necrotic Tissue Type Adherent Slough -Texture (Bria-wound Skin Appearance) Assessed -Moisture (Bria-wound Skin Appearance) Assessed -Color (Bria-wound Skin Appearance) Assessed -Temperature (Bria-wound Skin No Abnormality Appearance) (Pt Warm) -Tenderness on Palpation (Bria-wound No Skin Appearance) -Ulcer Cleansing Rinsed/ Irrigated with Saline -Foul Odor after Cleansing No -Anesthetic Used 5% Lidocaine Gel Lower Limb Edema Present NA WC - Nurse 2 - General Ulcer CM Notes Start: 04/13/24 11:31 Freq: Status: Active Protocol: Activity Type Activity Date Activity User E-sign Co-sign Detail Recorded Client Recorded Date Recorded By Document 04/13/24 12:07 [id number] 04/13/24 12:16 04/13/24 12:07 Wound Center Nurse 2 #1 ANTERIOR VULVA -Time 12:08 -Correct Patient Yes -Correct Side, Site, Position Yes -Correct Procedure Yes -Procedure Performed Yes -Type of Procedure Debridement -Clinical Debridement Subcutaneous -Tissue Removed Subcutaneous -Post Debridement (cm) - Length 0.3 -Post Debridement (cm) - Width 0.2 -Post Debridement (cm) - Depth 0.1 -Total Square (Post) (cm) 0.06 -Area of Debridement (cm) - Length 0.3 -Area of Debridement (cm) - Width 0.2 -Total Square (Area) (cm) 0.06 -Tunneling No -Undermining/Tunneling No -Circular Undermining No -Ulcer Cleansing Rinsed/ Irrigated with Saline -Foul Odor after Cleansing No -Bioengineered Tissue No -Debridement - Subq, 1st 20sq cm Yes Pain Scale: 0-10 Numeric Is Patient Pain Free? Yes WC - Nurse 3 - General Ulcer D/C NN Start: 04/13/24 11:31 Freq: Status: Active Protocol: Activity Type Activity Date Activity User E-sign Co-sign Detail Recorded Client Recorded Date Recorded By Document 04/13/24 12:24 ELKIN [id number] 04/13/24 12:25 ELKIN 04/13/24 12:24 Wound Care Center Nurse 3 #1 ANTERIOR VULVA -Primary Dressing Applied C Hydrogel ($) -Primary Dressing Covered/Secured with Dry Gauze Pain Scale: 0-10 Numeric Is Patient Pain Free? 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 At home wound-care instructions: Will have her continue to use collagen hydrogel to the ulcer and cover with an ABD pad to keep the area covered. Keep dressing clean and dry. HBO therapy has been discussed with the patient as an adjunct in healing her vulva area due to previous radiation but she declines to proceed with this because of financial concerns, claustrophobia, time commitment and transportation. She also is currently undergoing work up for abnormal mammogram and they have not been able to perform biopsy due to not being able to reach lesion. Off-loading: The patient was instructed to avoid pressure and friction on the affected areas. Reposition every 2 hours at minimum. Avoid prolonged standing and/or dangling of legs. When seated, feet should be elevated at chest level. Frequent ambulation is encouraged. Diet: Patient encouraged to increase protein intake while taking caution to avoid high carbohydrate and/or sugar intake. She has been drinking protein shakes once daily. Labs/cultures/imaging: Wound culture was positive for Anaerobic bacteria and 2 types of Staph. She completed Augmentin. It may also be reasonable to do a biopsy if there is no progress to r/o recurrence or incomplete treatment of her vulvar cancer. PET scan was negative for recurrence 01/10/2024. Wound culture positive for multiple vaginal priscila bacteria as well as anaerobic cocci and she was prescribed Flagyl and Amoxicillin which she completed. We have discussed the possible benefits of HBOT but she declines this treatment at this time due to severe claustrophobia and transportation issues. Follow-up: Return in 2 weeks for wound care follow up. Return sooner or report to the emergency room should symptoms worsen, or new symptoms arise. Note: [employer] speech recognition mounting machine operator software was used to create portions of this document. Sound-alike and misspelled words, as well as other mounting machine operator errors may be contained in the documentation.
== END 2024-04-20 23:59 | disposition home or self-care (01) ==
LOC: WC 11:11
PROVIDERS: PCP Nurse Practitioner Family; Referring Provider Obstetrics & Gynecology; Visit Provider Family Medicine
DX: L98.492 Non-pressure chronic ulcer of skin of other sites with fat layer exposed (principal); C51.9 Malignant neoplasm of vulva, unspecified; L58.9 Radiodermatitis, unspecified; N76.6 Ulceration of vulva; R32 Unspecified urinary incontinence; E03.9 Hypothyroidism, unspecified; Z79.890 Hormone replacement therapy; Z79.899 Other long term (current) drug therapy; Z92.21 Personal history of antineoplastic chemotherapy; Z92.3 Personal history of irradiation
CPT/HCPCS: 11042

== ENCOUNTER 2024-04-23 11:47 | Outpatient (RCR) | payer MEDICARE, SELFPAY ==
--- NOTE | 2024-04-23 11:52 | NS ---
04/23/24: Tried calling pt for nutrition follow-up. No answer, voicemail left. Will plan to follow-up w/pt in oncology on 06/05/24. Vesna Broussard RDN, LD
== END 2024-05-18 23:59 ==
LOC: NS 11:47
PROVIDERS: PCP Nurse Practitioner Family; Visit Provider Internal Medicine Hematology & Oncology
DX: Z71.3 Dietary counseling and surveillance (principal)

== ENCOUNTER 2024-04-27 10:34 | Outpatient (RCR) | payer MEDICARE, SELFPAY ==
[2024-04-21 02:24] VITALS: BP 117/54; PULSE 93; RESP 18; TEMP 35.7; BMI 28.8
[2024-04-27 11:02] VITALS: BP 147/71; PULSE 79; RESP 16; TEMP 35.6; BMI 28.8
--- NOTE | 2024-04-27 15:14 | PN.PCM_ITS ---
History of Present Illness Date of Service: 04/27/24 Chief Complaint: nonhealing ulcer vulva History of Wound: Kya is a pleasant 73 yo woman that presents to the wound healing center for evaluation and treatment of a nonhealing ulcer of her vulva that has been present for nearly 3 months. She has a history of recurrent vulvar cancer for which she has undergone surgical resection in 2011 with multiple surgeries since that time, her most recent was in September 2022 and she underwent chemotherapy and radiation treatment from June through August 25, 2023. The ulcer has been present since the end of her radiation treatments and she had been doing Sitz baths and applying ointment to the area. Dr. Reveles directed her radiation treatment and recommended referral to wound care at her last follow up. Unfortunately, following her treatment with chemotherapy and radiation treatment she fell and broke her clavicle and was in the Rehab unit at [facility] for a week in August and Dr. Broussard prescribed a compounded ointment that she had been applying that was made at the [facility] pharmacy. But she has not been using this recently and has only been keeping the area clean with Cottonelle disposable wipes after each time she urinates. She does wear an incontinence pad just as a precaution as she has occasional urinary incontinence. Most often she makes it to the bathroom. She notes a small amount of drainage on the pads at the site of the ulcer. She has not been on any recent antibiotics and she has not had any b iopsies or cultures of the site. She is due for a PET scan but due to the area not being healed, her oncologist and Dr. Reveles agreed that the results may be skewed and would like to postpone this until her ulcer heals. She denies any odor, increased drainage, or increased pain. Subjective Subjective Kya is here in follow up for a vulvar ulcer and has been tolerating hydrogel and covering with an ABD. She has been having difficulty keeping the ABD pad in place but she has noticed less drainage. She denies odor, erythema or increased drainage. Wound culture on 11/18/23 was positive for anaerobic bacteria and 2 types of Staph and she has completed treatment with antibiotics. Wound culture taken 02/24/24 positive for multiple vaginal priscila bacteria as well as anaerobic cocci and she was prescribed Flagyl and Amoxicillin which she completed. She is also undergoing evaluation for possible breast cancer, still have not been able to perform biopsy. Her son unexpectedly from heart failure in his sleep in February. Objective Data Objective Data Vital Signs: Vital Signs Temp Pulse Resp BP O2 Del Method 96.0 F L 79 16 147/71 H Room Air 04/27/24 11:02 04/27/24 11:02 04/27/24 11:02 04/27/24 11:02 04/27/24 11:02 Oxygen Delivery Method Room Air Weight: 83.461 kg Body Mass Index (BMI) 28.8 Physical Exam Const alert, oriented x3 and no apparent distress General Appearance: cooperative and comfortable HEENT normocephalic and head/scalp atraumatic Resp normal respiratory effort Effort and Inspection: able to speak in complete sentences Cardio regular rate and regular rhythm Skin Wounds: wounds noted Wound Narrative: as in clinical panel, mild maceration due to location Psych mental status grossly normal, thought process normal, cooperative and affect normal Debridement Note Debridement Note Wound debrided: anterior vulva Laterality: Not Applicable Type of Debridement: Excisional debridement Anesthesia Used: 4% Lidocaine Solution Depth: Down to and including healthy tissue and in the subcutaneous layer Percentage of wound debrided: 100 Instrument Used: 3mm curette Tissue Removed: Yellow slough, devitalized tissue Severity: Fat Layer Exposed Amount of bleeding with debridement: Mild Bleeding Controlled with: Compression and gauze Patient tolerated procedure: Patient tolerated procedure well Post-Debridement Measurements and Additional Note: Post-Debridement Measurements/Treatment - Nurse 1 - General Ulcer Assessment Start: 04/27/24 11:02 Freq: Status: Active Protocol: [email or web address] Activity Type Activity Date Activity User E-sign Co-sign Detail Recorded Client Recorded Date Recorded By Document 04/27/24 11:02 ELKIN [id number] 04/27/24 11:08 ELKIN 04/27/24 11:02 - Today's Visit Information Type of service Follow-up Visit (Physician/WAREHOUSE CHECKER ) Arrival Mode Ambulatory Patient Identification Verified (Name & Yes ) Height and Weight Body Mass Index (BMI) 28.8 BMI Classification Overweight Vital Signs Temperature (97.8 F-99.1 F) 96.0 F L Temperature Source Temporal Pulse Rate (60-100) 79 Pulse Location Monitor Respiratory Rate (12-18) 16 Respiratory rate source Observation Oxygen Delivery Method Room Air Blood Pressure (90/60-120/80) 147/71 H Blood Pressure Mean (mm Hg) 96 Source Monitor Position Semi-Fowlers Blood Pressure Location Left Arm History Since Last Visit- (Skip if this is Patient's initial visit) Have you changed medications since your No last visit? Any new allergies or adverse reactions No Had a fall/change in ADL's that may No increase risk of falls Signs or symptoms of abuse and/or No neglect since last visit Have you been in the hospital since your No last visit? Has dressing in place as prescribed Yes Has compression in place as prescribed N/A Has offloadiing in place as prescribed N/A Experienced any changes in pain level or No management Left Footwear Regular Shoe Right Footwear Regular Shoe Pain Scale: 0-10 Numeric Is Patient Pain Free? Yes - Nurse 1 - General Ulcer Measurement Start: 04/27/24 11:02 Freq: Status: Active Protocol: Activity Type Activity Date Activity User E-sign Co-sign Detail Recorded Client Recorded Date Recorded By Document 04/27/24 11:02 [id number] 04/27/24 11:08 04/27/24 11:02 Wound Center Nurse 1 #1 ANTERIOR VULVA -Current Size (cm) - Length 0.3 -Current Size (cm) - Width 0.2 -Current Size (cm) - Depth 0.1 -Total Square Cm 0.06 -Exudate Amt Small -Exudate Type Serosanguineous -Wound Margin Distinct, Outline Attached -Granulation Amt Small (1-33%) -Granulation Quality [place] -Texture (Bria-wound Skin Appearance) Assessed -Moisture (Bria-wound Skin Appearance) Assessed, Maceration -Color (Bria-wound Skin Appearance) Assessed -Temperature (Bria-wound Skin No Abnormality Appearance) (Pt Warm) -Tenderness on Palpation (Bria-wound No Skin Appearance) -Ulcer Cleansing Rinsed/ Irrigated with Saline -Foul Odor after Cleansing No -Anesthetic Used 5% Lidocaine Gel - Nurse 2 - General Ulcer CM Notes Start: 04/27/24 11:02 Freq: Status: Active Protocol: Activity Type Activity Date Activity User E-sign Co-sign Detail Recorded Client Recorded Date Recorded By Document 04/27/24 12:09 [facility] [id number] 04/27/24 12:17 [facility] 04/27/24 12:09 Wound Center Nurse 2 -Time 12:10 -Correct Patient Yes -Correct Side, Site, Position Yes -Correct Procedure Yes -Procedure Performed Yes -Type of Procedure Debridement -Clinical Debridement Subcutaneous -Tissue Removed Subcutaneous -Post Debridement (cm) - Length 0.2 -Post Debridement (cm) - Width 0.1 -Post Debridement (cm) - Depth 0.1 -Total Square (Post) (cm) 0.02 -Area of Debridement (cm) - Length 0.2 -Area of Debridement (cm) - Width 0.1 -Total Square (Area) (cm) 0.02 -Tunneling No -Undermining/Tunneling No -Circular Undermining No -Wound/Ulcer Outcome Not Healed -Ulcer Cleansing Rinsed/ Irrigated with Saline -Foul Odor after Cleansing No -Bioengineered Tissue No -Bleeding Controlled with Pressure -Treatment Response Procedure Tolerated Well -Debridement - Subq, 1st 20sq cm Yes Pain Scale: 0-10 Numeric Is Patient Pain Free? Yes - Nurse 3 - General Ulcer D/C NN Start: 04/27/24 11:02 Freq: Status: Active Protocol: Activity Type Activity Date Activity User E-sign Co-sign Detail Recorded Client Recorded Date Recorded By Document 04/27/24 12:22 [facility] [id number] 04/27/24 12:22 [facility] 04/27/24 12:22 Wound Care Center Nurse 3 #1 ANTERIOR VULVA -Ulcer Cleansing Rinsed/ Irrigated with Saline -Foul Odor after Cleansing No -Other Dressing hydrogel, wears pad in underwear to secure -Primary Dressing Covered/Secured with Dry Gauze Treatment Response Procedure Tolerated Well Pain Scale: 0-10 Numeric Is Patient Pain Free? 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 At home wound-care instructions: Will have her continue to use collagen hydrogel to the ulcer and cover with an ABD pad to keep the area covered. Keep dressing clean and dry. HBO therapy has been discussed with the patient as an adjunct in healing her vulva area due to previous radiation but she declines to proceed with this because of financial concerns, claustrophobia, time commitment and [facility]. She also is currently undergoing work up for abnormal mammogram and they have not been able to perform biopsy due to not being able to reach lesion. Off-loading: The patient was instructed to avoid pressure and friction on the affected areas. Reposition every 2 hours at minimum. Avoid prolonged standing and/or dangling of legs. When seated, feet should be elevated at chest level. Frequent ambulation is encouraged. Diet: Patient encouraged to increase protein intake while taking caution to avoid high carbohydrate and/or sugar intake. She has been drinking protein shakes once daily. Labs/cultures/imaging: Wound culture was positive for Anaerobic bacteria and 2 types of Staph. She completed Augmentin. It may also be reasonable to do a biopsy if there is no progress to r/o recurrence or incomplete treatment of her vulvar cancer. PET scan was negative for recurrence 01/10/2024. Wound culture positive for multiple vaginal priscila bacteria as well as anaerobic cocci and she was prescribed Flagyl and Amoxicillin which she completed. We have discussed the possible benefits of HBOT but she declines this treatment at this time due to severe claustrophobia and transportation issues. Follow-up: Return in 2 weeks for wound care follow up. Return sooner or report to the emergency room should symptoms worsen, or new symptoms arise. Note: [employer] speech recognition dorr operator software was used to create portions of this document. Sound-alike and misspelled words, as well as other dorr operator errors may be contained in the documentation.
== END 2024-05-18 23:59 | disposition home or self-care (01) ==
LOC: WC 10:34
PROVIDERS: PCP Nurse Practitioner Family; Referring Provider Obstetrics & Gynecology; Visit Provider Family Medicine
DX: N76.6 Ulceration of vulva (principal); L98.492 Non-pressure chronic ulcer of skin of other sites with fat layer exposed; C51.9 Malignant neoplasm of vulva, unspecified; R32 Unspecified urinary incontinence; L58.9 Radiodermatitis, unspecified; Z79.899 Other long term (current) drug therapy; Z79.890 Hormone replacement therapy; Z92.21 Personal history of antineoplastic chemotherapy; Z92.3 Personal history of irradiation
CPT/HCPCS: 11042

== ENCOUNTER 2024-06-08 10:45 | Outpatient (RCR) | payer MEDICARE, SELFPAY ==
[2024-05-19 02:30] VITALS: BP 147/71; PULSE 79; RESP 16; TEMP 35.6; BMI 28.8
[2024-05-25 10:29] VITALS: BP 142/46; PULSE 70; RESP 18; TEMP 36; BMI 28.8
--- NOTE | 2024-05-25 13:00 | PN.PCM_ITS ---
History of Present Illness Date of Service: 05/25/24 Chief Complaint: nonhealing ulcer vulva History of Wound: Kya is a pleasant 73 yo woman that presents to the wound healing center for evaluation and treatment of a nonhealing ulcer of her vulva that has been present for nearly 3 months. She has a history of recurrent vulvar cancer for which she has undergone surgical resection in 2011 with multiple surgeries since that time, her most recent was in September 2022 and she underwent chemotherapy and radiation treatment from June through August 25, 2023. The ulcer has been present since the end of her radiation treatments and she had been doing Sitz baths and applying ointment to the area. Dr. Reveles directed her radiation treatment and recommended referral to wound care at her last follow up. Unfortunately, following her treatment with chemotherapy and radiation treatment she fell and broke her clavicle and was in the Rehab unit at [facility] for a week in August and Dr. Broussard prescribed a compounded ointment that she had been applying that was made at the [facility] pharmacy. But she has not been using this recently and has only been keeping the area clean with Cottonelle disposable wipes after each time she urinates. She does wear an incontinence pad just as a precaution as she has occasional urinary incontinence. Most often she makes it to the bathroom. She notes a small amount of drainage on the pads at the site of the ulcer. She has not been on any recent antibiotics and she has not had any b iopsies or cultures of the site. She is due for a PET scan but due to the area not being healed, her oncologist and Dr. Reveles agreed that the results may be skewed and would like to postpone this until her ulcer heals. She denies any odor, increased drainage, or increased pain. Subjective Subjective Kya is here in follow up for a vulvar ulcer and has been tolerating hydrogel and covering with an ABD. She has been having difficulty keeping the ABD pad in place but she continues to note less drainage. She denies odor, erythema or increased drainage. Wound culture on 11/18/23 was positive for anaerobic bacteria and 2 types of Staph and she has completed treatment with antibiotics. Wound culture taken 02/24/24 positive for multiple vaginal priscila bacteria as well as anaerobic cocci and she was prescribed Flagyl and Amoxicillin which she completed. She saw her retail coordinator/onc physician, Dr. Douglas and she is concerned of 2 areas on exam but decided not to do a biopsy but is having her follow up in 1 month and may biopsy. She sees Dr. Reveles on 06/05/24 for follow up and he will examine her too. She is also undergoing evaluation for possible breast cancer, still have not been able to perform biopsy. Her son unexpectedly from heart failure in his sleep in February. Objective Data Objective Data Vital Signs: Vital Signs Temp Pulse Resp BP O2 Del Method 96.8 F L 70 18 142/46 H Room Air 05/25/24 10:05/25/24 10:29 05/25/24 10:29 05/25/24 10:05/25/24 10:29 Oxygen Delivery Method Room Air Weight: 83.461 kg Body Mass Index (BMI) 28.8 Physical Exam Const alert, oriented x3 and no apparent distress General Appearance: cooperative and comfortable HEENT normocephalic and head/scalp atraumatic Resp normal respiratory effort Effort and Inspection: able to speak in complete sentences Cardio regular rate and regular rhythm Skin Wounds: wounds noted Wound Narrative: as in clinical panel, mild maceration but also 2 crusty papular lesions on right labia which bled after debridement Psych mental status grossly normal, thought process normal, cooperative and affect normal Debridement Note Debridement Note Wound debrided: anterior vulva Laterality: Not Applicable Type of Debridement: Excisional debridement Anesthesia Used: 4% Lidocaine Solution and Cetacaine Depth: Down to and including healthy tissue and in the subcutaneous layer Percentage of wound debrided: 100 Instrument Used: 3mm curette Tissue Removed: Yellow slough, devitalized tissue Severity: Fat Layer Exposed Amount of bleeding with debridement: Mild Bleeding Controlled with: Compression and gauze Patient tolerated procedure: Patient tolerated procedure well Post-Debridement Measurements and Additional Note: Post-Debridement Measurements/Treatment - Nurse 1 - General Ulcer Assessment Start: 05/25/24 10:27 Freq: Status: Active Protocol: GRACIE Activity Type Activity Date Activity User E-sign Co-sign Detail Recorded Client Recorded Date Recorded By Document 05/25/24 10:29 ELKIN [id number] 05/25/24 10:35 KW 05/25/24 10:29 - Today's Visit Information Type of service Follow-up Visit (Physician/ELECTRONIC SERVICE TECHNICIAN ) Arrival Mode Ambulatory,Cane Patient Identification Verified (Name & Yes ) Height and Weight Body Mass Index (BMI) 28.8 BMI Classification Overweight Vital Signs Temperature (97.8 F-99.1 F) 96.8 F L Temperature Source Temporal Pulse Rate (60-100) 70 Pulse Location Monitor Respiratory Rate (12-18) 18 Respiratory rate source Observation Oxygen Delivery Method Room Air Blood Pressure (90/60-120/80) 142/46 H Blood Pressure Mean (mm Hg) 78 Source Monitor Position Semi-Fowlers Blood Pressure Location Left Arm History Since Last Visit- (Skip if this is Patient's initial visit) Have you changed medications since your No last visit? Any new allergies or adverse reactions No Had a fall/change in ADL's that may No increase risk of falls Signs or symptoms of abuse and/or No neglect since last visit Have you been in the hospital since your No last visit? Has dressing in place as prescribed Yes Has compression in place as prescribed N/A Has offloadiing in place as prescribed N/A Experienced any changes in pain level or No management Left Footwear Regular Shoe Right Footwear Regular Shoe Pain Scale: 0-10 Numeric Is Patient Pain Free? Yes WC - Nurse 1 - General Ulcer Measurement Start: 05/25/24 10:27 Freq: Status: Active Protocol: Activity Type Activity Date Activity User E-sign Co-sign Detail Recorded Client Recorded Date Recorded By Document 05/25/24 10:29 ELKIN [id number] 05/25/24 10:35 ELKIN 05/25/24 10:29 Wound Center Nurse 1 #1 ANTERIOR VULVA -Current Size (cm) - Length 1 -Current Size (cm) - Width 1 -Current Size (cm) - Depth 0.1 -Total Square Cm 1 -Exudate Amt None Present -Wound Margin Distinct, Outline Attached -Granulation Amt None Present (0 %) -Necrosis Amt Large (67-100%) -Necrotic Tissue Type Adherent Slough -Texture (Bria-wound Skin Appearance) Assessed,Rash -Moisture (Bria-wound Skin Appearance) Assessed -Color (Bria-wound Skin Appearance) Assessed -Temperature (Bria-wound Skin No Abnormality Appearance) (Pt Warm) -Tenderness on Palpation (Bria-wound No Skin Appearance) -Ulcer Cleansing Rinsed/ Irrigated with Saline -Foul Odor after Cleansing No -Anesthetic Used 5% Lidocaine Gel WC - Nurse 2 - General Ulcer CM Notes Start: 05/25/24 10:27 Freq: Status: Active Protocol: Activity Type Activity Date Activity User E-sign Co-sign Detail Recorded Client Recorded Date Recorded By Document 05/25/24 11:29 [id number] 05/25/24 11:40 05/25/24 11:29 Wound Center Nurse 2 -Time 11:30 -Correct Patient Yes -Correct Side, Site, Position Yes -Correct Procedure Yes -Procedure Performed Yes -Type of Procedure Debridement -Clinical Debridement Subcutaneous -Tissue Removed Subcutaneous -Post Debridement (cm) - Length 0.5 -Post Debridement (cm) - Width 0.5 -Post Debridement (cm) - Depth 0.1 -Total Square (Post) (cm) 0.25 -Area of Debridement (cm) - Length 0.5 -Area of Debridement (cm) - Width 0.5 -Total Square (Area) (cm) 0.25 -Tunneling No -Undermining/Tunneling No -Circular Undermining No -Wound/Ulcer Outcome Not Healed -Ulcer Cleansing Rinsed/ Irrigated with Saline -Foul Odor after Cleansing No -Bioengineered Tissue No -Bleeding Controlled with Pressure -Treatment Response Procedure Tolerated Well -Offloading No -Debridement - Subq, 1st 20sq cm Yes Pain Scale: 0-10 Numeric Is Patient Pain Free? Yes - Nurse 3 - General Ulcer D/C NN Start: 05/25/24 10:27 Freq: Status: Active Protocol: Activity Type Activity Date Activity User E-sign Co-sign Detail Recorded Client Recorded Date Recorded By Document 05/25/24 11:49 [id number] 05/25/24 11:49 05/25/24 11:49 Wound Care Center Nurse 3 #1 ANTERIOR VULVA -Other Dressing order to apply santyl, pt did not bring in, hydrogel to are for today -Primary Dressing Covered/Secured with Dry Gauze Pain Scale: 0-10 Numeric Is Patient Pain Free? 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 At home wound-care instructions: Will have her return to using Santyl to the ulcer and cover with an ABD pad to keep the area covered. Keep dressing clean and dry. HBO therapy has been discussed with the patient as an adjunct in healing her v ulva area due to previous radiation but she declines to proceed with this because of financial concerns, claustrophobia, time commitment and transportation. She also is currently undergoing work up for abnormal mammogram and they have not been able to perform biopsy due to not being able to reach lesion. Off-loading: The patient was instructed to avoid pressure and friction on the affected areas. Reposition every 2 hours at minimum. Avoid prolonged standing and/or dangling of legs. When seated, feet should be elevated at chest level. Frequent ambulation is encouraged. Diet: Patient encouraged to increase protein intake while taking caution to avoid high carbohydrate and/or sugar intake. She has been drinking protein shakes once daily. Labs/cultures/imaging: Wound culture was positive for Anaerobic bacteria and 2 types of Staph. She completed Augmentin. It may also be reasonable to do a biopsy if there is no progress to r/o recurrence or incomplete treatment of her vulvar cancer. PET scan was negative for recurrence 01/10/2024. Wound culture positive for multiple vaginal priscila bacteria as well as anaerobic cocci and she was prescribed Flagyl and Amoxicillin which she completed. We have discussed the possible benefits of HBOT but she declines this treatment at this time due to severe claustrophobia and transportation issues. Follow-up: Return in 2 weeks for wound care follow up. Return sooner or report to the emergency room should symptoms worsen, or new symptoms arise. Note: [employer] speech recognition jacquard card cutter software was used to create portions of this document. Sound-alike and misspelled words, as well as other jacquard card cutter errors may be contained in the documentation.
[2024-06-08 10:43] VITALS: BP 135/50; PULSE 57; RESP 18; TEMP 35.9; BMI 28.8
--- NOTE | 2024-06-08 12:31 | WC ---
PHOTO 06/08/24 VULVA
--- NOTE | 2024-06-08 14:07 | PCM.WC.PN ---
History of Present Illness Date of Service: 06/08/24 Chief Complaint: nonhealing ulcer vulva History of Wound: Kya is a pleasant 73 yo woman that presents to the wound healing center for evaluation and treatment of a nonhealing ulcer of her vulva that has been present for nearly 3 months. She has a history of recurrent vulvar cancer for which she has undergone surgical resection in 2011 with multiple surgeries since that time, her most recent was in September 2022 and she underwent chemotherapy and radiation treatment from June through August 25, 2023. The ulcer has been present since the end of her radiation treatments and she had been doing Sitz baths and applying ointment to the area. Dr. Reveles directed her radiation treatment and recommended referral to wound care at her last follow up. Unfortunately, following her treatment with chemotherapy and radiation treatment she fell and broke her clavicle and was in the Rehab unit at [facility] for a week in August and Dr. Broussard prescribed a compounded ointment that she had been applying that was made at the [facility] pharmacy. But she has not been using this recently and has only been keeping the area clean with Cottonelle disposable wipes after each time she urinates. She does wear an incontinence pad just as a precaution as she has occasional urinary incontinence. Most often she makes it to the bathroom. She notes a small amount of drainage on the pads at the site of the ulcer. She has not been on any recent antibiotics and she has not had any biopsies or cultures of the site. She is due for a PET scan but due to the area not being healed, her oncologist and Dr. Reveles agreed that the results may be skewed and would like to postpone this until her ulcer heals. She denies any odor, increased drainage, or increased pain. Subjective Subjective Kya is here in follow up for a vulvar ulcer and has been tolerating hydrogel and covering with an ABD. She has been having difficulty keeping the ABD pad in place but she continues to note less drainage. She denies odor, erythema or increased drainage. Wound culture on 11/18/23 was positive for anaerobic bacteria and 2 types of Staph and she has completed treatment with antibiotics. Wound culture taken 02/24/24 positive for multiple vaginal priscila bacteria as well as anaerobic cocci and she was prescribed Flagyl and Amoxicillin which she completed. She saw her histology teacher/onc physician, Dr. Douglas and she is concerned of 2 areas on exam but decided not to do a biopsy but is having her follow up in 1 month and may biopsy. She sees Dr. Reveles on 06/05/24 for follow up and he will examine her too. She is also undergoing evaluation for possible breast cancer, still have not been able to perform biopsy. Her son unexpectedly from heart failure in his sleep in February. Objective Data Objective Data Vital Signs: Vital Signs Temp Pulse Resp BP O2 Del Method 96.6 F L 57 L 18 135/50 H Room Air 06/08/24 10:43 06/08/24 10:43 06/08/24 10:43 06/08/24 10:43 05/25/24 10:29 Oxygen Delivery Method Room Air Weight: 83.461 kg Body Mass Index (BMI) 28.8 Physical Exam Const alert, oriented x3 and no apparent distress General Appearance: cooperative and comfortable HEENT normocephalic and head/scalp atraumatic Resp normal respiratory effort Effort and Inspection: able to speak in complete sentences Cardio regular rate and regular rhythm Skin Wounds: wounds noted Wound Narrative: as in clinical panel, mild maceration but also 2 crusty papular lesions on right labia which bled after debridement Psych mental status grossly normal, thought process normal, cooperative and affect normal Debridement Note Debridement Note Wound debrided: anterior vulva Laterality: Not Applicable Type of Debridement: Excisional debridement Anesthesia Used: 4% Lidocaine Solution and Cetacaine Depth: Down to and including healthy tissue and in the subcutaneous layer Percentage of wound debrided: 100 Instrument Used: 3mm curette Tissue Removed: Yellow slough, devitalized tissue Severity: Fat Layer Exposed Amount of bleeding with debridement: Mild Bleeding Controlled with: Compression and gauze Patient tolerated procedure: Patient tolerated procedure well Post-Debridement Measurements and Additional Note: Post-Debridement Measurements/Treatment JODIE - Nurse 1 - General Ulcer Assessment Start: 05/25/24 10:27 Freq: Status: Active Protocol: GRACIE Activity Type Activity Date Activity User E-sign Co-sign Detail Recorded Client Recorded Date Recorded By Document 05/25/24 10:29 KW [id number] 05/25/24 10:35 KW Document 06/08/24 10:43 RB [id number] 06/08/24 10:45 RB 05/25/24 06/08/24 10:29 10:43 WC - Today's Visit Information Type of service Follow-up Visit Follow-up Visit (Physician/ROULETTE DEALER (Physician/ROULETTE DEALER ) ) Arrival Mode Ambulatory,Cane Ambulatory Transfer Assistance None Patient Identification Verified (Name & Yes Yes ) Patient Requires Transmission-Based No Precautions Height and Weight Body Mass Index (BMI) 28.8 28.8 BMI Classification Overweight Overweight Vital Signs Temperature (97.8 F-99.1 F) 96.8 F L 96.6 F L Temperature Source Temporal Temporal Pulse Rate (60-100) 70 57 L Pulse Location Monitor Monitor Respiratory Rate (12-18) 18 18 Respiratory rate source Observation Observation Oxygen Delivery Method Room Air Blood Pressure (90/60-120/80) 142/46 H 135/50 H Blood Pressure Mean (mm Hg) 78 78 Source Monitor Monitor Position Semi-Fowlers Semi-Fowlers Blood Pressure Location Left Arm Left Arm History Since Last Visit- (Skip if this is Patient's initial visit) Have you changed medications since your No No last visit? Any new allergies or adverse reactions No No Had a fall/change in ADL's that may No No increase risk of falls Signs or symptoms of abuse and/or No No neglect since last visit Have you been in the hospital since your No No last visit? Has dressing in place as prescribed Yes Yes Has compression in place as prescribed N/A N/A Has offloadiing in place as prescribed N/A N/A Experienced any changes in pain level or No No management Left Footwear Regular Shoe Right Footwear Regular Shoe Pain Scale: 0-10 Numeric Is Patient Pain Free? Yes Yes WC - Nurse 1 - General Ulcer Measurement Start: 05/25/24 10:27 Freq: Status: Active Protocol: Activity Type Activity Date Activity User E-sign Co-sign Detail Recorded Client Recorded Date Recorded By Document 05/25/24 10:29 KW [id number] 05/25/24 10:35 KW Document 06/08/24 10:43 RB [id number] 06/08/24 10:45 RB 05/25/24 06/08/24 10:29 10:43 Wound Center Nurse 1 #1 ANTERIOR VULVA -Combined with other wound No -Current Size (cm) - Length 1 0.1 -Current Size (cm) - Width 1 0.1 -Current Size (cm) - Depth 0.1 0.1 -Total Square Cm 1 0.01 -Photo Taken Yes -Tunneling No -Undermining/Tunneling No -Circular Undermining No -Exudate Amt None Present Medium -Exudate Type Serosanguineous -Wound Margin Distinct, Thickened & Outline Rolled Under Attached -Granulation Amt None Present (0 Medium (34-66%) %) -Granulation Quality Benicia -Slough/Fibrin Yes -Necrosis Amt Large (67-100%) Small (1-33%) -Necrotic Tissue Type Adherent Slough Adherent Slough -Structure Exposed N/A -Texture (Bria-wound Skin Appearance) Assessed,Rash Assessed -Moisture (Bria-wound Skin Appearance) Assessed Assessed, Maceration -Color (Bria-wound Skin Appearance) Assessed Assessed -Temperature (Bria-wound Skin No Abnormality No Abnormality Appearance) (Pt Warm) (Pt Warm) -Tenderness on Palpation (Bria-wound No No Skin Appearance) -Ulcer Cleansing Rinsed/ Wound Cleanser Irrigated with Saline -Foul Odor after Cleansing No No -Anesthetic Used 5% Lidocaine 5% Lidocaine Gel Gel WC - Nurse 2 - General Ulcer CM Notes Start: 05/25/24 10:27 Freq: Status: Active Protocol: Activity Type Activity Date Activity User E-sign Co-sign Detail Recorded Client Recorded Date Recorded By Document 05/25/24 11:29 [id number] 05/25/24 11:40 Document 06/08/24 11:33 [id number] 06/08/24 11:34 05/25/24 06/08/24 11:29 11:33 Wound Center Nurse 2 #1 ANTERIOR VULVA -Time 11:30 11:33 -Correct Patient Yes Yes -Correct Side, Site, Position Yes Yes -Correct Procedure Yes Yes -Procedure Performed Yes Yes -Type of Procedure Debridement Debridement -Clinical Debridement Subcutaneous Subcutaneous -Tissue Removed Subcutaneous Subcutaneous -Post Debridement (cm) - Length 0.5 0.4 -Post Debridement (cm) - Width 0.5 0.1 -Post Debridement (cm) - Depth 0.1 0.1 -Total Square (Post) (cm) 0.25 0.04 -Area of Debridement (cm) - Length 0.5 0.4 -Area of Debridement (cm) - Width 0.5 0.1 -Total Square (Area) (cm) 0.25 0.04 -Tunneling No No -Undermining/Tunneling No No -Circular Undermining No No -Wound/Ulcer Outcome Not Healed Not Healed -Ulcer Cleansing Rinsed/ Rinsed/ Irrigated with Irrigated with Saline Saline -Foul Odor after Cleansing No No -Bioengineered Tissue No No -Bleeding Controlled with Pressure Pressure -Treatment Response Procedure Procedure Tolerated Well Tolerated Well -Offloading No No -Debridement - Subq, 1st 20sq cm Yes Yes Pain Scale: 0-10 Numeric Is Patient Pain Free? Yes Yes WC - Nurse 3 - General Ulcer D/C NN Start: 05/25/24 10:27 Freq: Status: Active Protocol: Activity Type Activity Date Activity User E-sign Co-sign Detail Recorded Client Recorded Date Recorded By Document 05/25/24 11:49 KW [id number] 05/25/24 11:49 KW Document 06/08/24 11:56 KW [id number] 06/08/24 11:57 KW 05/25/24 06/08/24 11:49 11:56 Wound Care Center Nurse 3 #1 ANTERIOR VULVA -Other Dressing order to apply APPLIED santyl, pt did HYDROGEL TODAY, not bring in, SANTYL AT HOME hydrogel to are EVERY CHANGE for today -Primary Dressing Covered/Secured with Dry Gauze Dry Gauze Pain Scale: 0-10 Numeric Is Patient Pain Free? 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 At home wound-care instructions: Will have her continue using Santyl to the ulcer and cover with an ABD pad to keep the area covered. Keep dressing clean and dry. HBO therapy has been discussed with the patient as an adjunct in healing her vulva area due to previous radiation but she declines to proceed with this because of financial concerns, claustrophobia, time commitment and transportation. She also is currently undergoing work up for abnormal mammogram and they have not been able to perform biopsy due to not being able to reach lesion. Off-loading: The patient was instructed to avoid pressure and friction on the affected areas. Reposition every 2 hours at minimum. Avoid prolonged standing and/or dangling of legs. When seated, feet should be elevated at chest level. Frequent ambulation is encouraged. Diet: Patient encouraged to increase protein intake while taking caution to avoid high carbohydrate and/or sugar intake. She has been drinking protein shakes once daily. Labs/cultures/imaging: Wound culture was positive for Anaerobic bacteria and 2 types of Staph. She completed Augmentin. It may also be reasonable to do a biopsy if there is no progress to r/o recurrence or incomplete treatment of her vulvar cancer. PET scan was negative for recurrence 01/10/2024. Wound culture positive for multiple vaginal priscila bacteria as well as anaerobic cocci and she was prescribed Flagyl and Amoxicillin which she completed. We have discussed the possible benefits of HBOT but she declines this treatment at this time due to severe claustrophobia and transportation issues. Follow-up: Return in 2 weeks for wound care follow up. Return sooner or report to the emergency room should symptoms worsen, or new symptoms arise. Note: [employer] speech recognition lightout examiner software was used to create portions of this document. Sound-alike and misspelled words, as well as other lightout examiner errors may be contained in the documentation.
== END 2024-06-18 23:59 | disposition home or self-care (01) ==
LOC: WC 10:45
PROVIDERS: PCP Nurse Practitioner Family; Referring Provider Obstetrics & Gynecology; Visit Provider Family Medicine
DX: N76.6 Ulceration of vulva (principal); L98.492 Non-pressure chronic ulcer of skin of other sites with fat layer exposed; C51.9 Malignant neoplasm of vulva, unspecified; R32 Unspecified urinary incontinence; L58.9 Radiodermatitis, unspecified
CPT/HCPCS: 11042

== ENCOUNTER 2024-06-22 12:24 | Outpatient (RCR) | payer MEDICARE, SELFPAY ==
[2024-06-19 00:55] VITALS: BP 135/50; PULSE 57; RESP 18; TEMP 35.9; BMI 28.8
[2024-06-22 11:22] VITALS: BP 149/50; PULSE 71; RESP 18; TEMP 36.2; BMI 28.8
--- NOTE | 2024-06-22 12:46 | PCM.WC.PN ---
History of Present Illness Date of Service: 06/22/24 Chief Complaint: nonhealing ulcer vulva History of Wound: Kya is a pleasant 73 yo woman that presents to the wound healing center for evaluation and treatment of a nonhealing ulcer of her vulva that has been present for nearly 3 months. She has a history of recurrent vulvar cancer for which she has undergone surgical resection in 2011 with multiple surgeries since that time, her most recent was in September 2022 and she underwent chemotherapy and radiation treatment from June through August 25, 2023. The ulcer has been present since the end of her radiation treatments and she had been doing Sitz baths and applying ointment to the area. Dr. Reveles directed her radiation treatment and recommended referral to wound care at her last follow up. Unfortunately, following her treatment with chemotherapy and radiation treatment she fell and broke her clavicle and was in the Rehab unit at [facility] for a week in August and Dr. Broussard prescribed a compounded ointment that she had been applying that was made at the [facility] pharmacy. But she has not been using this recently and has only been keeping the area clean with Cottonelle disposable wipes after each time she urinates. She does wear an incontinence pad just as a precaution as she has occasional urinary incontinence. Most often she makes it to the bathroom. She notes a small amount of drainage on the pads at the site of the ulcer. She has not been on any recent antibiotics and she has not had any biopsies or cultures of the site. She is due for a PET scan but due to the area not being healed, her oncologist and Dr. Reveles agreed that the results may be skewed and would like to postpone this until her ulcer heals. She denies any odor, increased drainage, or increased pain. Subjective Subjective Kya is here in follow up for a vulvar ulcer and has been tolerating Santyl and covering with an ABD. She has been having difficulty keeping the ABD pad in place but she continues to note less drainage. She denies odor, erythema or increased drainage. Wound culture on 11/18/23 was positive for anaerobic bacteria and 2 types of Staph and she has completed treatment with antibiotics. Wound culture taken 02/24/24 positive for multiple vaginal priscila bacteria as well as anaerobic cocci and she was prescribed Flagyl and Amoxicillin which she completed. She saw her medical technician assistant/onc physician, Dr. Douglas and she is concerned of 2 areas on exam but decided not to do a biopsy but is having her follow up in 1 month and may biopsy. She sees Dr. Reveles on 07/03/24. She is also undergoing evaluation for possible breast cancer, still have not been able to perform biopsy. Her son unexpectedly from heart failure in his sleep in February. Objective Data Objective Data Vital Signs: Vital Signs Temp Pulse Resp BP O2 Del Method 97.2 F L 71 18 149/50 H Room Air 06/22/24 11:22 06/22/24 11:22 06/22/24 11:22 06/22/24 11:22 06/22/24 11:22 Oxygen Delivery Method Room Air Weight: 83.461 kg Body Mass Index (BMI) 28.8 Physical Exam Const alert, oriented x3 and no apparent distress General Appearance: cooperative and comfortable HEENT normocephalic and head/scalp atraumatic Resp normal respiratory effort Effort and Inspection: able to speak in complete sentences Cardio regular rate and regular rhythm Skin Wounds: wounds noted Wound Narrative: as in clinical panel, mild maceration but also 2 crusty papular lesions on right labia which bled after debridement Psych mental status grossly normal, thought process normal, cooperative and affect normal Debridement Note Debridement Note Wound debrided: anterior vulva Laterality: Not Applicable Type of Debridement: Excisional debridement Anesthesia Used: 4% Lidocaine Solution and Cetacaine Depth: Down to and including healthy tissue and in the subcutaneous layer Percentage of wound debrided: 100 Instrument Used: 3mm curette Tissue Removed: Yellow slough, devitalized tissue Severity: Fat Layer Exposed Amount of bleeding with debridement: Mild Bleeding Controlled with: Compression and gauze Patient tolerated procedure: Patient tolerated procedure well Post-Debridement Measurements and Additional Note: Post-Debridement Measurements/Treatment - Nurse 1 - General Ulcer Assessment Start: 06/22/24 11:21 Freq: Status: Active Protocol: GRACIE Activity Type Activity Date Activity User E-sign Co-sign Detail Recorded Client Recorded Date Recorded By Document 06/22/24 11:22 ELKIN [id number] 06/22/24 11:26 ELKIN 06/22/24 11:22 - Today's Visit Information Type of service Follow-up Visit (Physician/ASSOCIATE MANAGER ) Arrival Mode Ambulatory,Cane Patient Identification Verified (Name & Yes ) Height and Weight Body Mass Index (BMI) 28.8 BMI Classification Overweight Vital Signs Temperature (97.8 F-99.1 F) 97.2 F L Temperature Source Temporal Pulse Rate (60-100) 71 Pulse Location Monitor Respiratory Rate (12-18) 18 Respiratory rate source Observation Oxygen Delivery Method Room Air Blood Pressure (90/60-120/80) 149/50 H Blood Pressure Mean (mm Hg) 83 Source Monitor Position Sitting Blood Pressure Location Left Arm History Since Last Visit- (Skip if this is Patient's initial visit) Have you changed medications since your No last visit? Any new allergies or adverse reactions No Had a fall/change in ADL's that may No increase risk of falls Signs or symptoms of abuse and/or No neglect since last visit Have you been in the hospital since your No last visit? Has dressing in place as prescribed Yes Has compression in place as prescribed N/A Has offloadiing in place as prescribed N/A Experienced any changes in pain level or No management Left Footwear Regular Shoe Right Footwear Regular Shoe Pain Scale: 0-10 Numeric Is Patient Pain Free? Yes WC - Nurse 1 - General Ulcer Measurement Start: 06/22/24 11:21 Freq: Status: Active Protocol: Activity Type Activity Date Activity User E-sign Co-sign Detail Recorded Client Recorded Date Recorded By Document 06/22/24 11:22 [id number] 06/22/24 11:26 KW 06/22/24 11:22 Wound Center Nurse 1 #1 ANTERIOR VULVA -Current Size (cm) - Length 1.5 -Current Size (cm) - Width 1.5 -Current Size (cm) - Depth 0.1 -Total Square Cm 2.25 -Exudate Amt None Present -Granulation Amt Small (1-33%) -Granulation Quality Elliott -Texture (Bria-wound Skin Appearance) Assessed,Rash -Moisture (Bria-wound Skin Appearance) Assessed, Maceration -Color (Bria-wound Skin Appearance) Assessed, Erythema -Temperature (Bria-wound Skin No Abnormality Appearance) (Pt Warm) -Tenderness on Palpation (Bria-wound No Skin Appearance) -Ulcer Cleansing Rinsed/ Irrigated with Saline -Foul Odor after Cleansing No -Anesthetic Used 5% Lidocaine Gel WC - Nurse 2 - General Ulcer CM Notes Start: 06/22/24 11:21 Freq: Status: Active Protocol: Activity Type Activity Date Activity User E-sign Co-sign Detail Recorded Client Recorded Date Recorded By Document 06/22/24 12:12 DS [id number] 06/22/24 12:13 DS 06/22/24 12:12 Wound Center Nurse 2 -Time 12:06 -Correct Patient Yes -Correct Side, Site, Position Yes -Correct Procedure Yes -Procedure Performed Yes -Type of Procedure Debridement -Clinical Debridement Subcutaneous -Tissue Removed Subcutaneous -Post Debridement (cm) - Length 0.4 -Post Debridement (cm) - Width 0.4 -Post Debridement (cm) - Depth 0.1 -Total Square (Post) (cm) 0.16 -Area of Debridement (cm) - Length 0.4 -Area of Debridement (cm) - Width 0.4 -Total Square (Area) (cm) 0.16 -Tunneling No -Undermining/Tunneling No -Circular Undermining No -Wound/Ulcer Outcome Not Healed -Ulcer Cleansing Rinsed/ Irrigated with Saline -Foul Odor after Cleansing No -Bioengineered Tissue No -Bleeding Controlled with Pressure -Treatment Response Procedure Tolerated Well -Debridement - Subq, 1st 20sq cm Yes Pain Scale: 0-10 Numeric Is Patient Pain Free? Yes - Nurse 3 - General Ulcer D/C NN Start: 06/22/24 11:21 Freq: Status: Active Protocol: Activity Type Activity Date Activity User E-sign Co-sign Detail Recorded Client Recorded Date Recorded By Document 06/22/24 12:21 KW [id number] 06/22/24 12:22 KW 06/22/24 12:21 Wound Care Center Nurse 3 #1 ANTERIOR VULVA -Other Dressing hydrogel today, santyl when home -Primary Dressing Covered/Secured with Dry Gauze Pain Scale: 0-10 Numeric Is Patient Pain Free? 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 At home wound-care instructions: Will have her continue using Santyl to the ulcer and cover with an ABD pad to keep the area covered. Keep dressing clean and dry. HBO therapy has been discussed with the patient as an adjunct in healing her vulva area due to previous radiation but she declines to proceed with this because of financial concerns, claustrophobia, time commitment and transportation. She also is currently undergoing work up for abnormal mammogram and they have not been able to perform biopsy due to not being able to reach lesion. Off-loading: The patient was instructed to avoid pressure and friction on the affected areas. Reposition every 2 hours at minimum. Avoid prolonged standing and/or dangling of legs. When seated, feet should be elevated at chest level. Frequent ambulation is encouraged. Diet: Patient encouraged to increase protein intake while taking caution to avoid high carbohydrate and/or sugar intake. She has been drinking protein shakes once daily. Labs/cultures/imaging: Wound culture was positive for Anaerobic bacteria and 2 types of Staph. She completed Augmentin. It may also be reasonable to do a biopsy if there is no progress to r/o recurrence or incomplete treatment of her vulvar cancer. PET scan was negative for recurrence 01/10/2024. Wound culture positive for multiple vaginal priscila bacteria as well as anaerobic cocci and she was prescribed Flagyl and Amoxicillin which she completed. Wound culture taken again today due to odor. We have discussed the possible benefits of HBOT but she declines this treatment at this time due to severe claustrophobia and transportation issues. Follow-up: Return in 2 weeks for wound care follow up. Return sooner or report to the emergency room should symptoms worsen, or new symptoms arise. Note: [employer] speech recognition chain forming machine operator software was used to create portions of this document. Sound-alike and misspelled words, as well as other chain forming machine operator errors may be contained in the documentation.
== END 2024-07-18 23:59 | disposition home or self-care (01) ==
LOC: WC 12:24
PROVIDERS: PCP Nurse Practitioner Family; Referring Provider Obstetrics & Gynecology; Visit Provider Family Medicine
DX: N76.6 Ulceration of vulva (principal); L98.492 Non-pressure chronic ulcer of skin of other sites with fat layer exposed; L58.9 Radiodermatitis, unspecified; R32 Unspecified urinary incontinence; E03.9 Hypothyroidism, unspecified; Z79.890 Hormone replacement therapy; Z79.899 Other long term (current) drug therapy; Z85.44 Personal history of malignant neoplasm of other female genital organs; Z92.21 Personal history of antineoplastic chemotherapy; Z92.3 Personal history of irradiation
CPT/HCPCS: 11042; 87070; 87075; 87077; 87186; 87205

== ENCOUNTER 2024-07-20 11:08 | Outpatient (RCR) | payer MEDICARE, SELFPAY ==
[2024-07-19 00:41] VITALS: BP 149/50; PULSE 71; RESP 18; TEMP 36.2; BMI 28.8
[2024-07-20 11:21] VITALS: BP 110/65; PULSE 82; RESP 18; TEMP 35.9; BMI 28.8
--- NOTE | 2024-07-20 14:12 | PCM.WC.PN ---
History of Present Illness Date of Service: 07/20/24 Chief Complaint: nonhealing ulcer vulva History of Wound: Kya is a pleasant 73 yo woman that presents to the wound healing center for evaluation and treatment of a nonhealing ulcer of her vulva that has been present for nearly 3 months. She has a history of recurrent vulvar cancer for which she has undergone surgical resection in 2011 with multiple surgeries since that time, her most recent was in September 2022 and she underwent chemotherapy and radiation treatment from June through August 25, 2023. The ulcer has been present since the end of her radiation treatments and she had been doing Sitz baths and applying ointment to the area. Dr. Reveles directed her radiation treatment and recommended referral to wound care at her last follow up. Unfortunately, following her treatment with chemotherapy and radiation treatment she fell and broke her clavicle and was in the Rehab unit at [facility] for a week in August and Dr. Broussard prescribed a compounded ointment that she had been applying that was made at the [facility] pharmacy. But she has not been using this recently and has only been keeping the area clean with Cottonelle disposable wipes after each time she urinates. She does wear an incontinence pad just as a precaution as she has occasional urinary incontinence. Most often she makes it to the bathroom. She notes a small amount of drainage on the pads at the site of the ulcer. She has not been on any recent antibiotics and she has not had any biopsies or cultures of the site. She is due for a PET scan but due to the area not being healed, her oncologist and Dr. Reveles agreed that the results may be skewed and would like to postpone this until her ulcer heals. She denies any odor, increased drainage, or increased pain. Subjective Subjective Kya is here in follow up for a vulvar ulcer and has been tolerating Santyl and covering with an ABD. She has been having difficulty keeping the ABD pad in place but she continues to note less drainage. She denies odor, erythema or increased drainage. Wound culture on 11/18/23 was positive for anaerobic bacteria and 2 types of Staph and she has completed treatment with antibiotics. Wound culture taken 02/24/24 positive for multiple vaginal priscila bacteria as well as anaerobic cocci and she was prescribed Flagyl and Amoxicillin which she completed. She saw her improvement nurse/onc physician, Dr. Douglas and she is concerned of 2 areas on exam but decided not to do a biopsy but is having her follow up in 1 month and may biopsy. She sees Dr. Reveles on 07/03/24. She is also undergoing evaluation for possible breast cancer, still have not been able to perform biopsy. Her son unexpectedly from heart failure in his sleep in February. Objective Data Objective Data Vital Signs: Vital Signs Temp Pulse Resp BP 96.7 F L 82 18 110/65 07/20/24 11:21 07/20/24 11:21 07/20/24 11:21 07/20/24 11:21 Weight: 83.461 kg Body Mass Index (BMI) 28.8 Physical Exam Const alert, oriented x3 and no apparent distress General Appearance: cooperative and comfortable HEENT normocephalic and head/scalp atraumatic Resp normal respiratory effort Effort and Inspection: able to speak in complete sentences Cardio regular rate and regular rhythm Skin Wounds: wounds noted Wound Narrative: as in clinical panel, mild maceration but also 2 crusty papular lesions on right labia which bled after debridement Psych mental status grossly normal, thought process normal, cooperative and affect normal Debridement Note Debridement Note Post-Debridement Measurements and Additional Note: Post-Debridement Measurements/Treatment WC - Nurse 1 - General Ulcer Assessment Start: 07/20/24 11:21 Freq: Status: Active Protocol: GRACIE Activity Type Activity Date Activity User E-sign Co-sign Detail Recorded Client Recorded Date Recorded By Document 07/20/24 11:21 [email or web address] [id number] 07/20/24 11:24 RB 07/20/24 11:21 - Today's Visit Information Type of service Follow-up Visit (Physician/MORTGAGE LOAN PROCESSING CLERK ) Arrival Mode Ambulatory Transfer Assistance None Patient Identification Verified (Name & Yes ) Patient Requires Transmission-Based No Precautions Height and Weight Body Mass Index (BMI) 28.8 BMI Classification Overweight Vital Signs Temperature (97.8 F-99.1 F) 96.7 F L Temperature Source Temporal Pulse Rate (60-100) 82 Pulse Location Monitor Respiratory Rate (12-18) 18 Respiratory rate source Observation Blood Pressure (90/60-120/80) 110/65 Blood Pressure Mean (mm Hg) 80 Source Monitor Position Semi-Fowlers Blood Pressure Location Left Arm History Since Last Visit- (Skip if this is Patient's initial visit) Have you changed medications since your No last visit? Any new allergies or adverse reactions No Had a fall/change in ADL's that may No increase risk of falls Signs or symptoms of abuse and/or No neglect since last visit Have you been in the hospital since your No last visit? Has dressing in place as prescribed Yes Has compression in place as prescribed N/A Has offloadiing in place as prescribed N/A Experienced any changes in pain level or No management Pain Scale: 0-10 Numeric Is Patient Pain Free? No perineum -Description Aching -Intensity 2 -Duration (hours) Acute -Pain Behavior Irritability -Pain Aggravating Factors Sitting -Alleviating Factors/Interventions None WC - Nurse 1 - General Ulcer Measurement Start: 07/20/24 11:21 Freq: Status: Active Protocol: Activity Type Activity Date Activity User E-sign Co-sign Detail Recorded Client Recorded Date Recorded By Document 07/20/24 11:21 RB [id number] 07/20/24 11:24 RB 07/20/24 11:21 Wound Center Nurse 1 #1 ANTERIOR VULVA -Combined with other wound No -Combined with (Name of Wound-Exactly .5 as it is documented) -Current Size (cm) - Length 0.5 -Current Size (cm) - Width 0.1 -Total Square Cm 0.05 -Photo Taken Yes -Tunneling No -Undermining/Tunneling No -Circular Undermining No -Exudate Amt Medium -Exudate Type Serosanguineous -Wound Margin Thickened & Rolled Under -Granulation Amt Medium (34-66%) -Granulation Quality Welsh -Slough/Fibrin Yes -Necrosis Amt Medium (34-66%) -Necrotic Tissue Type Adherent Slough -Structure Exposed N/A -Texture (Bria-wound Skin Appearance) Assessed -Moisture (Bria-wound Skin Appearance) Maceration -Color (Bria-wound Skin Appearance) Assessed -Temperature (Bria-wound Skin No Abnormality Appearance) (Pt Warm) -Tenderness on Palpation (Bria-wound No Skin Appearance) -Ulcer Cleansing Wound Cleanser -Foul Odor after Cleansing No -Anesthetic Used 5% Lidocaine Gel WC - Nurse 2 - General Ulcer CM Notes Start: 07/20/24 11:21 Freq: Status: Active Protocol: Activity Type Activity Date Activity User E-sign Co-sign Detail Recorded Client Recorded Date Recorded By Document 07/20/24 11:41 [id number] 07/20/24 11:48 07/20/24 11:41 Wound Center Nurse 2 -Time 11:47 -Correct Patient Yes -Correct Side, Site, Position Yes -Correct Procedure Yes -Procedure Performed Yes -Type of Procedure Debridement -Clinical Debridement Subcutaneous -Tissue Removed Subcutaneous -Post Debridement (cm) - Length 0.5 -Post Debridement (cm) - Width 1.0 -Post Debridement (cm) - Depth 0.1 -Total Square (Post) (cm) 0.50 -Area of Debridement (cm) - Length 0.5 -Area of Debridement (cm) - Width 1.0 -Total Square (Area) (cm) 0.50 -Tunneling No -Undermining/Tunneling No -Circular Undermining No -Wound/Ulcer Outcome Not Healed -Ulcer Cleansing Rinsed/ Irrigated with Saline -Foul Odor after Cleansing No -Bioengineered Tissue No -Bleeding Controlled with Pressure -Treatment Response Procedure Tolerated Well -Offloading No -Debridement - Subq, 1st 20sq cm Yes Pain Scale: 0-10 Numeric Is Patient Pain Free? Yes - Nurse 3 - General Ulcer D/C NN Start: 07/20/24 11:21 Freq: Status: Active Protocol: Activity Type Activity Date Activity User E-sign Co-sign Detail Recorded Client Recorded Date Recorded By Document 07/20/24 12:02 [id number] 07/20/24 12:03 07/20/24 12:02 Wound Care Center Nurse 3 #1 ANTERIOR VULVA -Ulcer Cleansing Not Cleansed -Foul Odor after Cleansing No -Negative Pressure Wound Therapy N/A -Primary Dressing Covered/Secured with Dry Gauze Pain Scale: 0-10 Numeric Is Patient Pain Free? 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 At home wound-care instructions: Will have her continue using Santyl to the ulcer and cover with an ABD pad to keep the area covered. Keep dressing clean and dry. HBO therapy has been discussed with the patient as an adjunct in healing her vulva area due to previous radiation but she declines to proceed with this because of financial concerns, claustrophobia, time commitment and transportation. She also is currently undergoing work up for abnormal mammogram and they have not been able to perform biopsy due to not being able to reach lesion. As of 07/20/24, Kya has had recurrence of her vulvar cancer and is scheduled to see surgeon for possible surgical procedure for excision. Off-loading: The patient was instructed to avoid pressure and friction on the affected areas. Reposition every 2 hours at minimum. Avoid prolonged standing and/or dangling of legs. When seated, feet should be elevated at chest level. Frequent ambulation is encouraged. Diet: Patient encouraged to increase protein intake while taking caution to avoid high carbohydrate and/or sugar intake. She has been drinking protein shakes once daily. Labs/cultures/imaging: Wound culture was positive for Anaerobic bacteria and 2 types of Staph. She completed Augmentin. It may also be reasonable to do a biopsy if there is no progress to r/o recurrence or incomplete treatment of her vulvar cancer. PET scan was negative for recurrence 01/10/2024. Wound culture positive for multiple vaginal priscila bacteria as well as anaerobic cocci and she was prescribed Flagyl and Amoxicillin which she completed. We have discussed the possible benefits of HBOT but she declines this treatment at this time due to severe claustrophobia and transportation issues and as of 07/20/24 she has had recurrence of vulvar cancer. Follow-up: Return in 3 weeks for wound care follow up. Return sooner or report to the emergency room should symptoms worsen, or new symptoms arise. Note: [employer] speech recognition bobbin fixer software was used to create portions of this document. Sound-alike and misspelled words, as well as other bobbin fixer errors may be contained in the documentation.
--- NOTE | 2024-07-23 14:10 | WC ---
PHOTO 07/20/24 VULVA
== END 2024-08-16 14:45 | disposition home or self-care (01) ==
LOC: WC 11:08
PROVIDERS: PCP Nurse Practitioner Family; Referring Provider Obstetrics & Gynecology; Visit Provider Family Medicine
DX: N76.6 Ulceration of vulva (principal); L98.492 Non-pressure chronic ulcer of skin of other sites with fat layer exposed; R32 Unspecified urinary incontinence; L58.9 Radiodermatitis, unspecified; E03.9 Hypothyroidism, unspecified; Z79.890 Hormone replacement therapy; Z79.899 Other long term (current) drug therapy; Z85.44 Personal history of malignant neoplasm of other female genital organs; Z92.21 Personal history of antineoplastic chemotherapy; Z92.3 Personal history of irradiation
CPT/HCPCS: 11042